=== PATIENT | female | born 1985 | race Caucasian/White ===

== ENCOUNTER 2023-12-01 07:48 | Emergency (ER) | payer BC, SELFPAY ==
[2023-12-01 07:48] VITALS: BP 155/85; PULSE 91; RESP 18; TEMP 37.2; O2SAT 100; BMI 27.6
--- NOTE | 2023-12-01 08:18 | CT_ITS ---
STUDY: CT ABDOMEN AND PELVIS WITHOUT CONTRAST REASON FOR EXAM: Female, 38 years old. Left sided abd pain RADIATION DOSAGE (If Supplied By Facility): CTDIvol = ( 8.63 ) mGy, DLP = ( 418.33 ) mGycm TECHNIQUE: Transaxial images were obtained from the dome of the diaphragm to the symphysis pubis without oral contrast, and without intravenous contrast. Sagittal and coronal images were reconstructed. Individualized dose optimization techniques were used for this CT. COMPARISON: None. FINDINGS: The visualized lung bases are unremarkable. The visualized portions of the heart are within normal limits. Normal liver. The gallbladder is not visualized and most likely status post cholecystectomy. Normal spleen. Normal pancreas. Normal bilateral adrenal glands. Normal right kidney. Normal left kidney. Normal visualized stomach. Normal small intestine. There are scattered colonic diverticula consistent with diverticulosis. There are surgical clips in the region of the appendix consistent with a prior appendectomy. Normal abdominal aorta. Normal inferior vena cava. Normal retroperitoneum. Normal urinary bladder. Normal abdominal wall. Normal osseous structures. CT/Abdomen/Pelvis without Cont IMPRESSION: Status post cholecystectomy and appendectomy. No acute abnormality is seen. Sigmoid diverticulosis. Electronically Signed: Alban Monzno MD at 9:40 EDT ,
--- NOTE | 2023-12-01 08:23 | EX.ED.DYSGE1 ---
HPI History of Present Illness Chief Complaint: Other, Pain/Inj Informant: patient Narrative Narrative: 38-year-old female states that she has painful lymphadenopathy for the past 3 weeks. This has been episodic for about 5 years. She has seen doctors, had workup, seeing endocrine, she had lots of testing including dissection and pathology of the lymph node, which ended up showing that it was a reactive node. She states for the past 3 weeks she has really been sore in her left axilla, left groin and inner thigh, and in the last week or so her left abdomen is really been hurting. Nauseated but no vomiting or diarrhea or blood. No melena. Low-grade fevers in the 99 range. Minor cough. [facility] Medical History (Updated 12/01/23 @ 10:[address] Swapnil Teixeira MD) Back pain Migraines Home Medications rizatriptan 5 mg tablet 5 mg PO .X1 PRN 11/27/15 [History Last Taken 11/25/15] citalopram 10 mg tablet 10 mg PO DAILY 10/28/16 [History Last Taken Unknown] meloxicam 15 mg tablet 15 mg PO DAILY #30 tabs 10/29/16 [Rx Last Taken Unknown] metaxalone 800 mg tablet 800 mg PO 4X/DAY PRN PRN Headache #60 tabs 10/29/16 [Rx Last Taken Unknown] nortriptyline 25 mg capsule 50 mg (2 x 25 mg) PO QHS ##60 10/29/16 [Rx Last Taken Unknown] tramadol 50 mg tablet 100 mg (2 x 50 mg) PO Q6H PRN PRN Pain #60 tabs 10/29/16 [Rx Last Taken Unknown] dicyclomine 10 mg capsule 20 mg (2 x 10 mg) PO Q6H PRN PRN abdominal pain #20 CAPSULES 12/01/23 [Rx Last Taken Unknown] tramadol 50 mg tablet 50 mg PO Q6H PRN pain 3 days #12 tabs 12/01/23 [Rx Last Taken Unknown] Allergy/AdvReac Type Severity Reaction Status Date / Time amitriptyline Allergy tachycardia, Verified 12/01/23 07:49 chest tightness Social History Smoking Status: Current every day smoker tobacco type: cigarettes ROS ROS ED Constitutional Constitutional ED: Reports fatigue and fever(s); Denies chills Eyes Eyes: Denies change in vision or diplopia ENT ENT ED: Denies rhinorrhea or sore throat Cardiovascular Cardiovascular: Denies chest pain or palpitations Respiratory/Chest Respiratory/Chest: Reports cough; Denies dyspnea Gastrointestinal Gastrointestinal: Reports abdominal pain; Denies diarrhea, hematochezia, melena, nausea or vomiting Genitourinary Genitourinary ED: Denies dysuria or hematuria Musculoskeletal Musculoskeletal: Reports back pain; Denies neck pain Integumentary Denies abscess or rash Neurologic Neurologic: Denies headache(s), paresthesias or weakness Psychiatric Psychiatric: Denies anxiety or suicidal thoughts Hematologic/Lymphatic Hematologic/Lymphatic: Reports as per HPI and lymphadenopathy; Denies easy bleeding or easy bruising EXAM Physical Exam Const Vital Signs: 12/01/23 07:48 12/01/23 09:45 Temperature 99 F Temperature Source Temporal Pulse Rate 91 90 Respiratory Rate 18 18 Blood Pressure 155/85 H 152/82 H Blood Pressure Mean 108 105 Pulse Ox 100 99 Oxygen Delivery Method Room Air Room Air Positive well nourished and well developed General Appearance ED: well developed and NAD HEENT Reports moist mucous membranes HEENT Narrative: POP clear. No stridor. normocephalic and atraumatic Eyes PERRL and EOMs intact bilaterally Neck full ROM, no lymphadenopathy and supple Chest Wall inspection of chest normal and palpation of chest normal Resp normal respiratory effort and clear to auscultation bilaterally Cardio regular rate, regular rhythm and no murmurs GI non-distended GI Narrative: very tender LUQ. No guarding/rebound. Otherwise, NT. Auscultation: normoactive bowel sounds Palpation: soft Back/Spine no CVA tenderness General Back: other FROM Extremity normal to inspection General Extremety ED: Negative for edema, pulses abnormal or tenderness General Extremity: Negative for edema or pulses abnormal Neuro oriented x3, CN's II-XII intact bilaterally and no sensory deficits noted Sensorium / Orientation: awake and alert Motor Exam: strength 5/5 throughout Psych mental status grossly normal Skin no rashes or lesions noted and no wounds MDM MDM MDM Narrative Medical decision making narrative: Patient concern about lymphadenopathy. I do not palpate any abnormal lymphadenopathy, the symptoms she is having of due to lymph nodes, suggest reactive lymphadenopathy, which she states basically was already proven with a biopsy but still she is concerned about lymphoma. We discussed what lymph nodes due to lymphoma typically are like, they are typically rubbery, relatively firm, and not tender/painful, opposite of what she is describing. In order to see if she has an enlarged spleen, to see if that is what is causing her left upper quadrant pain, I did a CT scan after we discussed pros and cons of that, it was negative for splenomegaly or lymphadenopathy, showed diverticulosis which I discussed with her, no signs of diverticulitis at this time. The rest of her tests are normal. I did an infectious workup, chest x-ray 2 views of mitral rotation negative for pneumonia, urinalysis negative, and COVID/influenza/RSV swab negative as well. In the meantime she was given Toradol which helped some, but not a lot. We discussed other causes of abdominal pain including urine or bowel syndrome which the patient at this point states I have a history of that. I am going to prescribe her some tramadol and dicyclomine to use as needed for symptoms, but otherwise I recommend following up with endocrine where she apparently had a positive KURT, she was told that she may have a connective tissue disorder, but I am not sure if that can cause a reactive lymphadenopathy or not. He is I discussed with her, it is difficult to rule in or rule out lymphoma or other cancers in the ER she is understanding of that. Lab Data Attestation: I reviewed the patient's lab results. Labs: Laboratory Results - last 24 hr 12/01/23 12/01/23 08:47 09:45 WBC 6.5 RBC 4.51 Hgb 14.0 Hct 41.9 MCV 92.9 MCH 31.0 MCHC 33.4 RDW Std Deviation 45.1 H RDW Coeff of Carlos 13.3 Plt Count 197 MPV 9.8 Immature Gran % (Auto) 0.200 Neut % (Auto) 68.5 Lymph % (Auto) 23.3 [place] % (Auto) 6.0 Eos % (Auto) 1.5 Baso % (Auto) 0.5 Absolute Neuts (auto) 4.5 Absolute Lymphs (auto) 1.52 Nucleated RBC % 0 Sodium 140 Potassium 3.9 Chloride 113 H Carbon Dioxide 25.0 Anion Gap 2 L BUN 13 Creatinine 0.83 Estim Creat Clear Calc 85.06 Est GFR (MDRD) Af Amer 98 Est GFR (MDRD) Non-Af 81 BUN/Creatinine Ratio 15.6 Glucose 99 Calcium 8.8 Total Bilirubin 0.70 AST 10 L ALT 18 Alkaline Phosphatase 37 L Total Protein 7.0 Albumin 3.9 Globulin 3.1 Albumin/Globulin Ratio 1.3 Urine Color Yellow Urine Clarity Cloudy Urine pH 5.0 Ur Specific [place] 1.025 Urine Protein 15 H Urine Glucose (UA) Normal Urine Ketones 5 H Urine Occult Blood 10 H Urine Nitrite Negative Urine Bilirubin Negative Urine Urobilinogen Normal Ur Leukocyte Esterase Negative Urine RBC 0-5 SEEN Urine WBC 0 SEEN Ur Squamous Epith Cells 5-10 SEEN Urine Bacteria 1+ Urine Mucus 1+ Radiography Diagnostic Testing: Clinical Impression(s) from Imaging Studies Abdomen/Pelvis CT 12/01/23 08:18 IMPRESSION: Status post cholecystectomy and appendectomy. No acute abnormality is seen. Sigmoid diverticulosis. Electronically Signed: Alban Monzon MD at 9:40 EDT , Chest X-Ray 12/01/23 08:27 IMPRESSION: Normal x-ray examination of the chest. Electronically Signed: Alban Monzon MD at 9:41 EDT , Discharge Plan Triage Chief Complaint: Other, Pain/Inj ED Provider: Swapnil Teixeira Dx/Rx/DC Orders Clinical Impression: Abdominal pain, left upper quadrant, Pain of multiple sites Instructions: Abdominal Pain Prescriptions: New dicyclomine 10 mg capsule 20 mg PO Q6H PRN PRN (Reason: abdominal pain) Qty: 20 0RF tramadol 50 mg tablet 50 mg PO Q6H PRN (Reason: pain) 3 Days Qty: 12 0RF No Action rizatriptan 5 MG tablet 5 mg PO .X1 PRN Patient Comments: MAGALLANES citalopram 10 MG tablet 10 mg PO DAILY nortriptyline 25 MG capsule 50 mg PO QHS Qty: 60 0RF tramadol 50 MG tablet 100 mg PO Q6H PRN PRN (Reason: Pain) Qty: 60 0RF metaxalone 800 MG tablet 800 mg PO 4X/DAY PRN PRN (Reason: Headache) Qty: 60 0RF meloxicam 15 MG tablet 15 mg PO DAILY Qty: 30 0RF Primary Care Provider: Fiorella Bradley Referrals: Fiorella Bradley PA [Primary Care Provider] - [facility] appointment Disposition Disposition: Home, Self Care
--- NOTE | 2023-12-01 08:27 | RAD_ITS ---
STUDY: X-RAY CHEST REASON FOR EXAM: Female, 38 years old. Cough, low-grade fever TECHNIQUE: PA and lateral views of the chest. COMPARISON: None. FINDINGS: The lungs are clear and expanded. There is no demonstrated pleural abnormality. Normal size heart. Normal mediastinum and radha. Normal visualized pulmonary arteries. Normal visualized aortic arch and descending thoracic aorta. Normal visualized thoracic spine. Normal visualized ribs, clavicles, and shoulders. There is no demonstrated abnormality of the visualized soft tissue structures of the upper abdomen. RAD/Chest PA and Lateral IMPRESSION: Normal x-ray examination of the chest. Electronically Signed: Alban Monzon MD at 9:41 EDT ,
[2023-12-01] MEDS: Ketorolac 30 MG/ML Syringe IV (08:56)
[2023-12-01 08:57] LABS: Absolute Lymphocyte Count 1.52 X10^3/uL (0.83-4.51); Absolute Neutrophil Count 4.5 X10^3/uL (2.0-7.7); Basophil# 0.03 X10^3/uL; Basophil% 0.5 % (0-1); Eosinophils% 1.5 % (0-5); Hematocrit 41.9 % (37-47); Lymphocyte # 1.52 X10^3/ul (0.83-4.51); Lymphocyte % 23.3 % (19-41); Mean Corp Hgb Conc 33.4 g/dL (32-36); Mean Corpuscular Volume 92.9 fL (81-99); Mean Platelet Vol. 9.8 fl (6.2-12.0); Monocyte# 0.39 X10^3/uL; NRBC Flagged by Analyzer 0 % (0-5); Neutrophil # 4.46 X10^3/uL (2.7-7.7); Neutrophil % 68.5 % (47-70); Platelet Count 197 K/mm3 (150-450); RBC Distribution Width CV 13.3 % (11.6-14.6); RBC Distribution Width SD 45.1 fl (35.1-43.9); Red Blood Count 4.51 M/mm3 (4.2-5.4); White Blood Count 6.5 K/mm3 (4.4-11.0)
[2023-12-01 09:16] LABS: ALB/GLOB Ratio 1.3 RATIO (0.9-2.4); AST(SGOT) 10 U/L (15-37); Alanine Aminotransfer ALT/SGPT 18 U/L (13-56); Albumin, Serum 3.9 g/dL (3.2-5.0); Alkaline Phosphatase 37 U/L (45-117); Anion Gap 2 (5-15); BUN 13 mg/dL (7-18); BUN/Creat Ratio 15.6 RATIO (10-20); Calcium,Total 8.8 mg/dL (8.5-10.1); Chloride 113 mmol/L (98-107); Creatinine, Serum 0.83 mg/dL (0.55-1.02); EST Glomerular Filtration Rate 81 mL/min (>60); Est Glom Filt Rate - Afr Amer 98 mL/min (>60); Estimated Creatinine Clearance 85.06 ml/min; Globulin 3.1 g/dL (2.2-4.2); Glucose 99 mg/dL (74-106); Potassium 3.9 mmol/L (3.5-5.1); Sodium Level 140 mmol/L (136-145)
[2023-12-01 09:45] VITALS: BP 152/82; PULSE 90; RESP 18; O2SAT 99
[2023-12-01 09:52] LABS: White Blood Cells 0 SEEN /hpf (0-5)
[2023-12-01 09:57] LABS: Color, Urine Yellow (Yellow); Glucose, Dipstick Normal (Normal); Ketone-Dipstick 5 mg/dl (Negative); Leukocyte Esterase-Dipstick Negative /ul (Negative); Nitrite-Dipstick Negative (Negative); Occult Blood-Urine 10 /ul (Negative); Protein-Dipstick 15 mg/dl (Negative); Specific Gravity, Urine 1.025 (1.002-1.030); Urine Bilirubin Dipstick Negative (Negative); Urine Clarity Cloudy (Clear); Urine Urobilinogen Normal (Normal)
[2023-12-01 10:04] LABS: Bacteria 1+ /hpf (None Seen); Mucous, Urine 1+ /hpf (<or=2+); Red Blood Cells-Urine 0-5 SEEN /hpf (0-5); Squamous Epithelial Cells - UA 5-10 SEEN /hpf (5-10)
[2023-12-01 11:00] VITALS: BP 150/80; PULSE 88; RESP 18; O2SAT 99
[2023-12-01 11:02] VITALS: BP 150/80; PULSE 88; RESP 18; TEMP 36.6; O2SAT 99
== END 2023-12-01 11:17 | disposition home or self-care (01) ==
PROVIDERS: Emergency Provider Emergency Medicine; PCP Physician Assistant; Visit Provider Emergency Medicine
DX: R10.12 Left upper quadrant pain (principal); K57.90 Diverticulosis of intestine, part unspecified, without perforation or abscess without bleeding; M54.9 Dorsalgia, unspecified; Z11.52 Encounter for screening for COVID-19; R50.9 Fever, unspecified; R05.9 Cough, unspecified; Z79.899 Other long term (current) drug therapy; F17.210 Nicotine dependence, cigarettes, uncomplicated
CPT/HCPCS: 71046; 74176; 80053; 81001; 85025; 87631; 96374; 99283; A4216

== ENCOUNTER → 2024-01-02 | Outpatient (CLI) | payer BC, SELFPAY ==
--- NOTE | 2024-01-02 16:38 | US_ITS ---
INDICATION: ADNEXAL CYST EXAMINATION: Ultrasound US Pelvis Non-OB Limited (eg bladder) COMPARISON: None. FINDINGS: 58 grayscale ultrasound images of the pelvis obtained transabdominally. In addition dedicated ovarian color Doppler and Doppler waveform interrogation was performed. UTERUS: Uterus is absent. ADNEXA: Flow is documented to bilateral ovaries by color Doppler as well as Doppler waveform. Anechoic right ovarian lesion measuring up to 3.8 cm. Additional hypoechoic 1.9 cm left ovarian lesion. No significant free fluid. US/Pelvic (Non ) IMPRESSION: 4 cm right ovarian cyst. Additional 2 cm left ovarian follicle as well. Electronically Signed: Philip Hancock MD at 4:27 EDT ,
--- NOTE | 2024-01-02 16:38 | US_ITS ---
INDICATION: NODULE LOWER EXT-LT. Pain left inner thigh. COMPARISON: None. FINDINGS: 27 targeted grayscale ultrasound images of the left inner thigh area of concern. Multiple cinematic series provided. No obvious mass or focal fluid collection. US/Ext Non Vasc Limited/Soft Tiss IMPRESSION: No obvious mass or focal fluid collection of the left inner thigh area of concern. Electronically Signed: Philip Hancock MD at 23:25 EDT ,
== END | disposition home or self-care (01) ==
LOC: US 16:35
PROVIDERS: PCP Physician Assistant; Referring Provider Physician Assistant; Visit Provider Physician Assistant
DX: N94.9 Unspecified condition associated with female genital organs and menstrual cycle (principal); R22.40 Localized swelling, mass and lump, unspecified lower limb
CPT/HCPCS: 76856; 76882

== ENCOUNTER 2025-03-07 12:54 | Emergency (ER) | payer BC, SELFPAY ==
[2025-03-07 12:55] VITALS: BP 115/91; PULSE 66; RESP 18; TEMP 36.8; O2SAT 100; BMI 30.9
[2025-03-07 13:07] LABS: Mucous, Urine 0 SEEN /hpf (<or=2+)
[2025-03-07 13:11] LABS: Color, Urine Yellow (Yellow); Glucose, Dipstick Normal (Normal); Ketone-Dipstick Negative (Negative); Leukocyte Esterase-Dipstick Negative /ul (Negative); Nitrite-Dipstick Negative (Negative); Occult Blood-Urine 10 /ul (Negative); Protein-Dipstick Negative (Negative); Specific Gravity, Urine 1.010 (1.002-1.030); Urine Bilirubin Dipstick Negative (Negative)
[2025-03-07 13:17] LABS: Red Blood Cells-Urine 0-5 SEEN /hpf (0-5); Squamous Epithelial Cells - UA 0-5 SEEN /hpf (5-10)
--- NOTE | 2025-03-07 13:32 | EX.ED.DYSGE1 ---
HPI History of Present Illness Chief Complaint: Complaint Informant: patient Onset/Context/Timing Onset: Yesterday Context: Gradual Onset Timing: Continuous Quality: Aching Location: Left lower abdomen and left lower back Worsened by: Pressure Relieved by: Tylenol Narrative Narrative: Patient presents with left lower quadrant abdominal pain and low back pain that has been getting worse since yesterday. Patient states is gradually getting worse. Patient describes it as aching. Patient states it is over the left lower abdomen and radiates straight into her back. Patient states it is worse whenever there is pressure in her lower abdomen. Patient states she has been taking Tylenol which has been helping somewhat. Patient admits to some nausea but denies any vomiting. Patient admits to some urinary frequency but denies any dysuria. Patient admits to some microscopic hematuria. Patient denies any fevers or chills. [facility] Medical History (Updated 03/07/25 @ 17:[address] Brant Ogden, DO) Genital prolapse, old laceration of muscles of pelvic floor Idiopathic intracranial hypertension Back pain Migraines Home Medications ?Medication ?Instructions ?Recorded ?Last Taken ?Type rizatriptan 5 mg tablet 5 mg PO .X1 PRN 11/27/15 11/25/15 History citalopram 10 mg tablet 10 mg PO DAILY 10/28/16 Unknown History meloxicam 15 mg tablet 15 mg PO DAILY #30 tabs 10/29/16 Unknown Rx metaxalone 800 mg tablet 800 mg PO 4X/DAY PRN PRN Headache 10/29/16 Unknown Rx #60 tabs nortriptyline 25 mg capsule 50 mg (2 x 25 mg) PO QHS ##60 10/29/16 Unknown Rx tramadol 50 mg tablet 100 mg (2 x 50 mg) PO Q6H PRN PRN 10/29/16 Unknown Rx Pain #60 tabs dicyclomine 10 mg capsule 20 mg (2 x 10 mg) PO Q6H PRN PRN 12/01/23 Unknown Rx abdominal pain #20 CAPSULES tramadol 50 mg tablet 50 mg PO Q6H PRN pain 3 days #12 12/01/23 Unknown Rx tabs promethazine 25 mg tablet 25 mg PO Q6H PRN PRN Nausea #10 03/07/25 Unknown Rx TABLETS Allergy/AdvReac Type Severity Reaction Status Date / Time amitriptyline Allergy tachycardia, Verified 12/01/23 07:49 chest tightness gabapentin AdvReac edema Verified 03/07/25 12:56 Surgical History (Updated 03/07/25 @ 13:[address] Brant Ogden DO) Hx of lymph node biopsy Hx of tubal ligation History of hysterectomy Hx of section Hx of cholecystectomy Hx of appendectomy Social History Smoking Status: Former smoker ROS ROS ED Constitutional Constitutional ED: Denies chills or fever(s) Eyes Eyes: Denies blurry vision or change in vision ENT ENT ED: Denies rhinorrhea or sore throat Cardiovascular Cardiovascular: Denies chest pain or palpitations Respiratory/Chest Respiratory/Chest: Denies cough or dyspnea Gastrointestinal Gastrointestinal: Reports abdominal pain and nausea; Denies vomiting Genitourinary Genitourinary ED: Reports hematuria and urinary frequency; Denies dysuria Musculoskeletal Musculoskeletal: Reports back pain; Denies neck pain Integumentary Denies abscess or rash Neurologic Neurologic: Denies headache(s) or weakness Allergic/Immunologic Allergic/Immunologic ED: Denies mouth swelling or urticaria EXAM Physical Exam Const Vital Signs: 03/07/25 12:55 03/07/25 16:43 03/07/25 17:36 Temperature 98.2 F 98 F Temperature Source Oral Pulse Rate 66 64 60 Respiratory Rate 18 16 16 Blood Pressure 115/91 H 107/62 106/67 Blood Pressure Mean 99 77 80 Pulse Ox 100 100 99 Oxygen Delivery Method Room Air Room Air Positive well nourished and well developed General Appearance ED: well developed and NAD HEENT Reports moist mucous membranes Neck supple and no JVD Resp normal respiratory effort and clear to auscultation bilaterally Cardio regular rate and regular rhythm GI non-distended Palpation: soft and tender LLQ; Negative for guarding or rebound tenderness present Back/Spine Back/Spine Narrative: There is mild tenderness of the left lumbar paraspinal muscles. There is no midline tenderness. There is no bony crepitance or step-off. Neuro oriented x3, CN's II-XII intact bilaterally and no sensory deficits noted Sensorium / Orientation: alert Motor Exam: strength 5/5 throughout Psych mental status grossly normal MDM MDM MDM Narrative Medical decision making narrative: Differential diagnosis includes urinary tract infection, ureteral calculus, pyelonephritis, diverticulitis, bowel obstruction, perforation, and electrolyte abnormality. CBC will be obtained to assess for leukocytosis and anemia. Basic metabolic profile will be obtained to assess for electrolyte abnormality and renal function. Urinalysis will be obtained to assess for urinary tract infection and hematuria. CT scan of the abdomen and pelvis will be obtained to assess for bowel obstruction, perforation, ureteral calculus, and diverticulitis. History & Record Review Additional record(s) reviewed:: Prior ED visit and Prior labs Lab Data Attestation: I reviewed the patient's lab results. Lab results narrative: Urinalysis was reviewed. There is no evidence of urinary tract infection or hematuria. CBC was reviewed and was within normal limits. Basic metabolic profile was reviewed and was within normal limits. Labs: Laboratory Results - last 24 hr 03/07/25 03/07/25 13:00 14:17 WBC 5.7 RBC 4.51 Hgb 14.0 Hct 41.7 MCV 92.5 MCH 31.0 MCHC 33.6 RDW Std Deviation 47.5 H RDW Coeff of Carlos 14.0 Plt Count 215 MPV 9.3 Immature Gran % (Auto) 0.400 Neut % (Auto) 59.4 Lymph % (Auto) 27.2 [place] % (Auto) 8.1 Eos % (Auto) 4.4 Baso % (Auto) 0.5 Absolute Neuts (auto) 3.4 Absolute Lymphs (auto) 1.54 Nucleated RBC % 0 Sodium 141 Potassium 3.9 Chloride 105 Carbon Dioxide 25.7 Anion Gap 11 BUN 17 Creatinine 0.78 Estim Creat Clear Calc 94.48 Est GFR (MDRD) Non-Af 97 BUN/Creatinine Ratio 21.9 H Glucose 88 Calcium 9.1 Urine Color Yellow Urine Clarity Clear Urine pH 7.0 Ur Specific [place] 1.010 Urine Protein Negative Urine Glucose (UA) Normal Urine Ketones Negative Urine Occult Blood 10 H Urine Nitrite Negative Urine Bilirubin Negative Urine Urobilinogen Normal Ur Leukocyte Esterase Negative Urine RBC 0-5 SEEN Urine WBC 0-5 SEEN Ur Squamous Epith Cells 0-5 SEEN Urine Bacteria RARE Urine Mucus 0 SEEN Radiography Diagnostic Testing: Clinical Impression(s) from Imaging Studies Abdomen/Pelvis CT 03/07/25 14:55 IMPRESSION: No acute intra-abdominal abnormality. Reading Location: [id number] scan of the abdomen pelvis was obtained. There is no acute intra-abdominal abnormality noted. There is no free air or free fluid. There is diverticulosis but no evidence of diverticulitis. This was interpreted by the radiologist was also independently reviewed by myself. Treatment and Re-Evaluation :: Patient was given IV fluids, morphine, and Zofran. Patient was still nauseated on reevaluation. Patient was given a dose of Phenergan. Patient was advised of her findings. Patient was instructed to follow-up with her primary care physician in 5 to 7 days. Patient declined a prescription for analgesics is agreeable to a prescription for antiemetic. Patient was given a prescription for Phenergan. Patient was instructed to start with a liquid diet and advance as tolerated. Patient was instructed to follow-up with her primary care physician in 5 to 7 days. Patient was instructed to return if worse in any way. Patient understood and was agreeable with the plan. All questions were answered. Discharge Plan Triage Chief Complaint: Complaint ED Provider: Brant Ogden Dx/Rx/DC Orders Clinical Impression: Abdominal pain, Nausea Instructions: ED Abdominal Pain Unkn Cause Fem Prescriptions: New promethazine 25 mg tablet 25 mg PO Q6H PRN PRN (Reason: Nausea) Qty: 10 0RF No Action rizatriptan 5 MG tablet 5 mg PO .X1 PRN Patient Comments: MAGALLANES citalopram 10 MG tablet 10 mg PO DAILY nortriptyline 25 MG capsule 50 mg PO QHS Qty: 60 0RF tramadol 50 MG tablet 100 mg PO Q6H PRN PRN (Reason: Pain) Qty: 60 0RF metaxalone 800 MG tablet 800 mg PO 4X/DAY PRN PRN (Reason: Headache) Qty: 60 0RF meloxicam 15 MG tablet 15 mg PO DAILY Qty: 30 0RF dicyclomine 10 mg capsule 20 mg PO Q6H PRN PRN (Reason: abdominal pain) Qty: 20 0RF tramadol 50 mg tablet 50 mg PO Q6H PRN (Reason: pain) 3 Days Qty: 12 0RF Primary Care Provider: Fiorella Bradley Referrals: Fiorella Bradley, ZACHARY [Primary Care Provider] - 5-7 Days Print Language: Sami Disposition Disposition: Home, Self Care Discharge Date/Time: 03/07/25 17:38
[2025-03-07] MEDS: 0.9% Normal Saline (1000mL) 1,000 ML 1000 ML IV (14:22)
[2025-03-07 14:34] LABS: Hematocrit 41.7 % (37-47); Hemoglobin 14.0 g/dL (12.0-15.0); Immature Granulocytes Count 0.020 X10^3/uL (0.0-0.0); Mean Corp Hgb Conc 33.6 g/dL (32-36); Mean Corpuscular Volume 92.5 fL (81-99); Mean Platelet Vol. 9.3 fl (6.2-12.0); NRBC Flagged by Analyzer 0 % (0-5); Platelet Count 215 K/mm3 (150-450); RBC Distribution Width CV 14.0 % (11.6-14.6); RBC Distribution Width SD 47.5 fl (35.1-43.9); Red Blood Count 4.51 M/mm3 (4.2-5.4); White Blood Count 5.7 K/mm3 (4.4-11.0)
--- NOTE | 2025-03-07 14:55 | CT_ITS ---
PROCEDURE: ABDOMEN/PELVIS W IV CONT ONLY 03/07/2025 REASON FOR EXAM: ABDOMINAL PAIN TECHNIQUE: ABDOMEN/PELVIS W IV CONT ONLY Coronal and Sagittal reconstruction series were provided. CONTRAST: Isovue 370 VOLUME: 98 mL One or more dose reduction techniques were used (e.g., Automated exposure control, adjustment of the mA and/or kV according to patient size, use of iterative reconstruction technique. RADIATION DOSE SUMMARY: CTDlvol: 18.4 mGy DLP: 946 mGycm COMPARISON: CT abdomen and pelvis 12/01/2023 FINDINGS: Lung bases: Unremarkable Liver: Mild intrahepatic biliary ductal dilatation, unchanged. Gallbladder: Surgically absent. Spleen: Unremarkable Pancreas: Normal size without evidence of mass surrounding inflammation or ductal dilation. Adrenals: Unremarkable Kidneys: No radiodense stone or hydronephrosis. Bladder: Unremarkable Reproductive Organs: Prior hysterectomy. Adnexal regions are unremarkable. Bowel: No obstruction or inflammation. Appendix is surgically absent. Sigmoid colon diverticulosis without evidence of acute diverticulitis. Lymph nodes: No suspicious lymph node enlargement. Vasculature: The abdominal aorta and IVC are normal. Bones: Bone island in the right iliac wing, unchanged Soft tissues: Unremarkable. CT/Abdomen/Pelvis W IV Cont ONLY IMPRESSION: No acute intra-abdominal abnormality. Reading Location: [facility]
[2025-03-07 15:23] LABS: Anion Gap 11 (5-15); BUN 17 mg/dL (4-19); BUN/Creat Ratio 21.9 RATIO (10-20); Calcium,Total 9.1 mg/dL (7.6-11.0); Carbon Dioxide 25.7 mmol/L (21.0-32.0); Chloride 105 mmol/L (98-108); Estimated Creatinine Clearance 94.48 ml/min (50-250); Glucose 88 mg/dL (70-99); Potassium 3.9 mmol/L (3.3-5.1)
[2025-03-07 16:43] VITALS: BP 107/62; PULSE 64; RESP 16; O2SAT 100
[2025-03-07] MEDS: proMETHazine 25 MG/ML Syringe 6.25 MG IM (17:08)
[2025-03-07 17:36] VITALS: BP 106/67; PULSE 60; RESP 16; TEMP 36.6; O2SAT 99
== END 2025-03-07 17:38 | disposition home or self-care (01) ==
PROVIDERS: Emergency Provider Emergency Medicine; PCP Physician Assistant; Referring Provider Emergency Medicine; Visit Provider Emergency Medicine
DX: R10.32 Left lower quadrant pain (principal); R11.0 Nausea; M54.50 Low back pain, unspecified; R35.0 Frequency of micturition; R31.29 Other microscopic hematuria; Z79.899 Other long term (current) drug therapy; Z87.891 Personal history of nicotine dependence
CPT/HCPCS: 74177; 80048; 81001; 85025; 96361; 96372; 96374; 96375; 99283; Q9967; J2405

== ENCOUNTER 2025-03-10 20:02 | Emergency (ER) | payer BC, SELFPAY ==
[2025-03-10 20:02] VITALS: BP 119/63; PULSE 84; RESP 16; TEMP 37; O2SAT 99; BMI 30.9
--- NOTE | 2025-03-10 20:25 | CT_ITS ---
PROCEDURE: ABDOMEN/PELVIS W IV CONT ONLY 03/10/2025 REASON FOR EXAM: ABDOMINAL AND LEFT FLANK PAIN. PRIOR CHOLECYSTECT TECHNIQUE: ABDOMEN/PELVIS W IV CONT ONLY Coronal and Sagittal reconstruction series were provided. CONTRAST: 100 mL of Isovue 370 One or more dose reduction techniques were used (e.g., Automated exposure control, adjustment of the mA and/or kV according to patient size, use of iterative reconstruction technique. RADIATION DOSE SUMMARY: DLP: 718 mGycm COMPARISON: 03/07/2025 FINDINGS: Limited sections of the lung bases demonstrate no focal pulmonary mass or consolidations. Right middle lobe subsegmental atelectasis. The liver, spleen, pancreas, and both adrenal glands demonstrate no acute findings. Hepatomegaly to 17.5 cm. Gallbladder is not well seen. The stomach is unremarkable. The small bowel loops are not dilated. The appendix is surgically removed. Diffuse colonic wall thickening and inflammation concerning for pancolitis. No bowel obstruction. There is no free air or significant free fluid. The kidneys are unremarkable. The urinary bladder is nondistended. The pelvic structures are intact. There is no solid pelvic mass. No significant lymphadenopathy. The aorta and IVC demonstrate no acute findings. Visualized osseous structures demonstrate no acute abnormality. CT/Abdomen/Pelvis W IV Cont ONLY IMPRESSION: Diffuse colonic wall thickening and inflammation concerning for pancolitis. No bowel obstruction. Reading Location: [id number]
--- NOTE | 2025-03-10 20:26 | EDS_ITS ---
HPI HPI - GI History of Present Illness Chief Complaint: Abd Pain Informant: patient Abdominal Pain/Flank Pain Onset: Days Context: Gradual Onset Timing: Continuous Quality: Aching and Cramping Location: Diffuse, LLQ and Left Flank Current Severity: Moderate Maximum Severity: Moderate Worsened by: Nothing Relieved by: Nothing Nausea/Vomiting/Emesis GI Symptom: Positive for Nausea; Negative for Vomiting Severity: Moderate Diarrhea/Melena/Hematochezia GI Symptom: Negative for Diarrhea, Melena or Hematochezia Associated Symptoms Associated Symptoms: Negative for Dysuria, Frequency, Hematuria or Urgency Narrative Narrative: 39-year-old female history of migraine headaches. Prior hysterectomy, cholecystectomy and appendectomy. States she has chronic left periumbilical pain. But now she is having urinary symptoms with associated nausea. No vomiting or diarrhea. Lower abdominal pressure. No fever. Also back pain both sides. Denies any trauma. Prior similar symptoms: Yes Recent Illness/Hospitalization: No PFSH PFS Medical History Genital prolapse, old laceration of muscles of pelvic floor Idiopathic intracranial hypertension Back pain Migraines Home Medications ?Medication ?Instructions ?Recorded ?Last Taken ?Type rizatriptan 5 mg tablet 5 mg PO .X1 PRN 11/27/1501/04 History citalopram 10 mg tablet 10 mg PO DAILY 10/28/16 Unkn own History meloxicam 15 mg tablet 15 mg PO DAILY #30 tabs 10/20 Unknown Rx metaxalone 800 mg tablet 800 mg PO 4X/DAY PRN PRN Hea dache 10/29/16 Unknown Rx #60 tabs nortriptyline 25 mg capsule 50 mg (2 x 25 mg) PO QHS # #60 10/29/16 Unknown Rx tramadol 50 mg tablet 100 mg (2 x 50 mg) PO Q6H KS N PRN 10/29/16 Unknown Rx Pain #60 tabs dicyclomine 10 mg capsule 20 mg (2 x 10 mg) PO Q6H PRN PRN 12/01/23 Unknown Rx abdominal pain #20 CAPSULES tramadol 50 mg tablet 50 mg PO Q6H PRN pain 3 days #12 12/01/23 Unknown Rx tabs promethazine 25 mg tablet 25 mg PO Q6H PRN PRN Nausea #10 03/07/25 Unknown Rx TABLETS ondansetron 4 mg disintegrating 4 mg PO Q6H PRN nausea and 03/10/25 Unknown Rx tablet vomiting #10 tabs Allergy/AdvReac Type Severity Reaction Status Date / Time amitriptyline Allergy tachycardia, Verified 03/10/25 20:03 chest tightness gabapentin AdvReac edema Verified 03/10/25 20:03 Surgical History Hx of lymph node biopsy Hx of tubal ligation History of hysterectomy Hx of section Hx of cholecystectomy Hx of appendectomy Social History Smoking Status: Former smoker ROS ROS ED ROS Narrative Nausea. Abdominal and back pain. Dysuria. Constitutional Constitutional ED: Denies chills or fever(s) ENT ENT ED: Denies ear pain Cardiovascular Cardiovascular: Denies chest pain Respiratory/Chest Respiratory/Chest: Denies cough or dyspnea Gastrointestinal Gastrointestinal: Reports abdominal pain and nausea; Denies constipation, diarrhea, melena or vomiting Genitourinary Genitourinary ED: Reports dysuria Musculoskeletal Musculoskeletal: Reports back pain; Denies arthralgias Integumentary Denies abscess Neurologic Neurologic: Denies headache(s) Psychiatric Psychiatric: Denies anxiety Endocrine Endocrinology: Denies polydipsia Hematologic/Lymphatic Hematologic/Lymphatic: Denies easy bleeding, easy bruising or lymphadenopathy Allergic/Immunologic Allergic/Immunologic ED: Denies mouth swelling, tongue swelling or urticaria EXAM Physical Exam Narrative Exam Narrative: 39-year-old female vital signs stable afebrile. No acute distress. Signifi cant other bedside. H EENT exam pupils round and light. Extra motions are intact. Neck nontender no lymphadenopathy. Lungs clear to auscultation. Heart regular rhythm rate about 80 no murmur. Chest wall ribs nontender. Abdomen soft nondistended normal bowel sounds without peritoneal signs mild left lower quadrant tenderness. No rebound guarding rigidity. No obstruction. No mass. No hernia. No distention. Right upper or right lower quadrants are unremarkable. Moving all 4 extremities. Nontender no edema. Back nontender. Neurologically she is awake alert. Answering questions following commands. Const Vital Signs: 03/10/25 20:02 Temperature 98.6 F Temperature Source Oral Pulse Rate 84 Respiratory Rate 16 Blood Pressure 119/63 Blood Pressure Mean 81 Pulse Ox 99 Oxygen Delivery Method Room Air Positive well nourished and well developed; Negative for obese, cachectic, contractures or unkempt General Appearance ED: well developed and NAD; Negative for unkempt, cachectic, contractures or pallor Nutritional Appearance: Negative for cachectic or obese HEENT Reports moist mucous membranes normocephalic and atraumatic Eyes PERRL and EOMs intact bilaterally General Eye ED: Negative for pale conjunctiva or scleral icterus Neck no lymphadenopathy, supple and no JVD Resp normal respiratory effort and clear to auscultation bilaterally Auscultation: Negative for rales, rhonchi or wheezes Cardio regular rate, regular rhythm, S1 normal heart sound, S2 normal heart sound and no murmurs Rate: Negative for bradycardia or tachycardic Rhythm: Negative for abnormal rhythm GI non-distended and no masses; Negative for non-tender Inspection: Negative for abdominal distention Auscultation: normoactive bowel sounds Palpation: soft and tender; Negative for guarding, rigid, hepatomegaly, splenomegaly, hernia, mass, pulsatile mass or rebound tenderness present Back/Spine no CVA tenderness General Back: Negative for CVA tenderness Cervical Spine: Negative for cervical spine tenderness Thoracic Spine / Upper Back: Negative for thoracic spinal tenderness Lumbar Spine / Lower Back: Negative for lumbar spinal tenderness Extremity full ROM General Extremety ED: Negative for edema or tenderness General Extremity: Negative for edema Neuro CN's II-XII intact bilaterally and moves all extremities Sensorium / Orientation: alert, oriented to person, oriented to place and oriented to time; Negative for orientation impaired or confused Motor Exam: strength 5/5 throughout Psych mental status grossly normal and thought process normal Appearance: Negative for unkempt Skin no wounds General Skin Exam: Negative for jaundice or pallor Lesions: no lesions Rashes: no rashes Trauma: Negative for abrasion Nails: Negative for discolored MDM MDM MDM Narrative Medical decision making narrative: 39-year-old female vital signs stable afebrile with flank and abdominal pain. Abdomen is pretty benign. This may be secondary to scar tissue or multiple prior abdominal surgeries. Consider diverticulitis., UTI, kidney stone. [place] Toradol for pain. Zofran for nausea. IV fluids. CAT scan and labs. Repeat exam patient doing well at 9:25 PM. Abdomen benign. She is feeling better after Zofran and Toradol. We are awaiting the second part of her UA and the CAT scan results. History & Record Review Discussion w/independent historian: Patient Additional record(s) reviewed:: Prior inpatient record, Prior outpatient record, Prior ED visit and Prior labs Lab Data Attestation: I reviewed the patient's lab results. Lab results narrative: CBC unremarkable. White count of 10. H&H 14 and 41. Platelets 227. Electrolytes show sodium 142. Gap 11. Normal BUN and creatinine. Liver enzymes normal. Lipase normal at 47. Urinalysis shows no nitrites. Negative. No white or red cells. CAT scan shows inflammation of the colon otherwise unremarkable. Labs: Laboratory Results - last 24 hr 03/10/25 03/10/25 20:28 20:40 WBC 10.0 RBC 4.57 Hgb 14.2 Hct 41.4 MCV 90.6 MCH 31.1 MCHC 34.3 RDW Std Deviation 45.8 H RDW Coeff of Carlos 13.8 Plt Count 227 MPV 9.3 Immature Gran % (Auto) 0.300 Neut % (Auto) 66.1 Lymph % (Auto) 22.6 [place] % (Auto) 7.0 Eos % (Auto) 3.6 Baso % (Auto) 0.4 Absolute Neuts (auto) 6.6 Absolute Lymphs (auto) 2.27 Nucleated RBC % 0 Sodium 142 Potassium 4.1 Chloride 105 Carbon Dioxide 25.5 Anion Gap 11 BUN 19 Creatinine 0.89 Estim Creat Clear Calc 82.82 Est GFR (MDRD) Non-Af 84 BUN/Creatinine Ratio 21.3 H Glucose 86 Calcium 9.4 Total Bilirubin 0.27 AST 20 ALT 13 Alkaline Phosphatase 52 Total Protein 7.1 Albumin 4.4 Globulin 2.7 Albumin/Globulin Ratio 1.6 Lipase 47 Urine Color Yellow Urine Clarity Clear Urine pH 6.0 Ur Specific [place] 1.025 Urine Protein 15 H Urine Glucose (UA) Normal Urine Ketones Negative Urine Occult Blood 25 H Urine Nitrite Negative Urine Bilirubin Negative Urine Urobilinogen Normal Ur Leukocyte Esterase 25 H Urine RBC 0-5 SEEN Urine WBC 0-5 SEEN Ur Squamous Epith Cells 0-5 SEEN Urine Bacteria RARE Urine Mucus 0 SEEN Radiography Diagnostic Testing: Clinical Impression(s) from Imaging Studies Abdomen/Pelvis CT 03/10/25 20:25 IMPRESSION: Diffuse colonic wall thickening and inflammation concerning for pancolitis. No bowel obstruction. Reading Location: [facility] Discharge Plan Triage Chief Complaint: Abd Pain Other Complaint: Back ED Provider: Jeffrey Poon Dx/Rx/DC Orders Clinical Impression: Abdominal pain, Nausea Instructions: Abdominal Pain Prescriptions: New ondansetron 4 mg tablet,disintegrating 4 mg PO Q6H PRN (Reason: nausea and vomiting) Qty: 10 0RF No Action rizatriptan 5 MG tablet 5 mg PO .X1 PRN Patient Comments: MAGALLANES citalopram 10 MG tablet 10 mg PO DAILY nortriptyline 25 MG capsule 50 mg PO QHS Qty: 60 0RF tramadol 50 MG tablet 100 mg PO Q6H PRN PRN (Reason: Pain) Qty: 60 0RF metaxalone 800 MG tablet 800 mg PO 4X/DAY PRN PRN (Reason: Headache) Qty: 60 0RF meloxicam 15 MG tablet 15 mg PO DAILY Qty: 30 0RF dicyclomine 10 mg capsule 20 mg PO Q6H PRN PRN (Reason: abdominal pain) Qty: 20 0RF tramadol 50 mg tablet 50 mg PO Q6H PRN (Reason: pain) 3 Days Qty: 12 0RF promethazine 25 mg tablet 25 mg PO Q6H PRN PRN (Reason: Nausea) Qty: 10 0RF Primary Care Provider: Fiorella Bradley Referrals: Fiorella Bradley, ZACHARY [Primary Care Provider] - 3-5 Days if not improving Activity Restrictions/Additional Instructions: Plenty of fluids and rest. Increase your diet slowly as tolerated. Motrin and Tylenol for pain. Zofran as needed for nausea. Follow-up with your primary care provider if not improving or return if feeling a lot worse. Print Language: Chinese Disposition Disposition: Home, Self Care
[2025-03-10 20:34] LABS: Hematocrit 41.4 % (37-47); Hemoglobin 14.2 g/dL (12.0-15.0); Immature Granulocytes Count 0.030 X10^3/uL (0.0-0.0); Mean Corp Hgb Conc 34.3 g/dL (32-36); Mean Corpuscular Volume 90.6 fL (81-99); Mean Platelet Vol. 9.3 fl (6.2-12.0); NRBC Flagged by Analyzer 0 % (0-5); Platelet Count 227 K/mm3 (150-450); RBC Distribution Width CV 13.8 % (11.6-14.6); RBC Distribution Width SD 45.8 fl (35.1-43.9); Red Blood Count 4.57 M/mm3 (4.2-5.4); White Blood Count 10.0 K/mm3 (4.4-11.0)
[2025-03-10] MEDS: Ketorolac 30 MG/ML Syringe IV (20:38)
[2025-03-10] MEDS: 0.9% Normal Saline (1000mL) 1,000 ML 999 ML IV (20:38)
[2025-03-10 20:43] LABS: Mucous, Urine 0 SEEN /hpf (<or=2+)
[2025-03-10 20:45] LABS: Color, Urine Yellow (Yellow); Glucose, Dipstick Normal (Normal); Ketone-Dipstick Negative (Negative); Leukocyte Esterase-Dipstick 25 /ul (Negative); Nitrite-Dipstick Negative (Negative); Occult Blood-Urine 25 /ul (Negative); Protein-Dipstick 15 mg/dl (Negative); Specific Gravity, Urine 1.025 (1.002-1.030); Urine Bilirubin Dipstick Negative (Negative)
[2025-03-10 20:50] LABS: AST(SGOT) 20 U/L (<=31); Alanine Aminotransfer ALT/SGPT 13 U/L (<=34); Albumin, Serum 4.4 g/dL (3.5-5.0); Alkaline Phosphatase 52 U/L (35-104); Anion Gap 11 (5-15); BUN 19 mg/dL (4-19); BUN/Creat Ratio 21.3 RATIO (10-20); Calcium,Total 9.4 mg/dL (7.6-11.0); Carbon Dioxide 25.5 mmol/L (21.0-32.0); Chloride 105 mmol/L (98-108); Estimated Creatinine Clearance 82.82 ml/min (50-250); Globulin 2.7 g/dL (2.2-4.2); Glucose 86 mg/dL (70-99); Lipase 47 U/L (13-75); Potassium 4.1 mmol/L (3.3-5.1)
--- OUTSIDE RECORDS SUMMARY | 2025-03-10 20:52 | XMS RPT_ITS | CCD ---
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 Unavailable Un available Cardiology Provider Unavailable Unavailable Edwardo ACRYLIC FABRICATOR, Janene Unavailable Unavaila ble Omar ACRYLIC FABRICATOR, Regina M Unavailable Unavailab le Unavailable Unavailable Stephanie ALFARONLeyda Unavailable Unavailabl e Urologist Provider Unavailable Unavailable Chava ALFARONWendi Unavailable BradleyFiorella nath Attending Unavailable Bradley, Fiorella Referring Unavailable Bradley, Fiorella Primary Care Unavailable Swapnil Teixeira Attending Unavailable Bradley, Fiorella Primary Care Unavailable Fiorella Bradley PA-C A Primary Care Provider CESTA, EDD Referring Unavailable CESTA, EDD Attending Unavailable BRADLEY, FIORELLA Primary Care Unavailable CESTA, EDD Attending Unavailable BRADLEY, FIORELLA Primary Care Unavailable Rheumatolgy Provider Unavailable Unavailable Carballo III, Logan Rick Primary Care Provide r Uday GLASS SAGGER.Hubert SOMMERS Unavailable [phone] Candelaria Benjamin MD Unavailable [phone] WOODROW FELDMAN Attending Unava ilable BRANDEN RAO Primary Care Unavailable BRANDEN RAO Referring Unavailable BRANDEN RAO Primary Care Unavailable Buffy LEONARDOKeturah Unavailable Unavailable Álvaro ACRYLIC FABRICATOR, Matteo Unavailable Unavailable NIKITA MARTÍNEZ Referring Unavailable BRADLEY, FIORELLA J Consulting Unavailable DG APPIAH MD Admitting Unavailable DG APPIAH MD Attending Unavailable DG APPIAH MD Primary Care Unavailable PROVIDER, UNKNOWN Consulting Unavailable BRADLEY, FIORELLA J Consulting Unavailable RACH, CRUZ HERNANDEZ Admitting Unavailable RACHCRUZ Caldera MD Attending Unavailable RACH, CRUZ HERNANDEZ Primary Care Unavailable PROVIDER, UNKNOWN Consulting Unavailable LEYDA GALDAMEZ METAL LOADER Admitting Unavailable BRALDEY, FIORELLA J Consulting Unavailable LEYDA GALDAMEZ METAL LOADER Attending Unavailable LEYDA GALDAMEZ METAL LOADER Primary Care Unavailable PROVIDER, UNKNOWN Consulting Unavailable BRADLEY, FIORELLA J Admitting Unavailable BRADLEY, FIORELLA J Attending Unavailable BRADLEY, FIORELLA J Consulting Unavailable BRADLEY, FIORELLA J Primary Care Unavailable PROVIDER, UNKNOWN Consulting Unavailable BRADLEY, FIORELLA J Admitting Unavailable BRADLEY, FIORELLA J Attending Unavailable BRADLEY, FIORELLA J Consulting Unavailable BRADLEY, FIORELLA J Primary Care Unavailable PROVIDER, UNKNOWN Consulting Unavailable ELADIO HERNANDES Admitting Unavailable BRADLEY, FIORELLA J Referring Unavailable BRADLEY, FIORELLA J Consulting Unavailable ELADIO HERNANDES Attending Unavailable ELADIO HERNANDES Primary Care Unavailable PROVIDER, UNKNOWN Consulting Unavailable Candelaria Benjamin MD Unavailable [phone] Bradley, Fiorella J Unavailable CARBALLO III, FLINT RICK Primary Care Unav ailable Fiorella Montenegro Primary Care Provider [phone] Dr. Brant Ogden DO Referring Provider Dr. Brant Ogden DO Emergency Provider Allergies Allergy Classification Reported Allergen(s) Allergy Type Date of Onset Reaction(s) Facility Acetaminophen / oxyCODONE (1 source) Acetaminophen / oxyCODONE Drug Allergy 3 [facility] Amitriptyline (2 sources) Amitriptyline Drug Allergy 6 Other, Palpitations Independa.; 1-4 All Anti-Epileptic Agents (1 source) gabapentin Drug Allergy 3 Other [facility] (20 sources) amitriptyline; Translations: [AMITRIPTYLINE] Drug Allergy 6 Other, Palpitations, Tachycardia, Other: See Comments [facility] Other [place] Rep[facility] (1 source) Acetaminophen / oxyCODONE Drug Allergy [facility] Repository (16 sources) Acetaminophen / oxyCODONE; Translations: [OXYCODONE-ACETAM INOPHEN] Drug Allergy 3 [facility] (17 sources) gabapentin; Translations: [GABAPENTIN] Drug Allergy 3 Other [facility] (20 sources) Amitriptyline Drug Allergy 1-4 All; Independa. (1 source) gabapentin Drug Allergy [facility] Repository Medications Current Medications Medication Drug Class(es) Dates Sig (Normalized) Sig (Original) acetaminophen 500 mg oral tablet (4 sources) Start: 12-07-2022 End: 01-06-2023 take 2 tablets by mouth every six hours as needed for pain acetaminophen (Tylenol Extra Strength) 500 MG tablet Take 2 tablets (1,000 mg) by mouth every 6 hours as needed for mild pain (1-3). 120 tablet 0 12/07/2022 01/06/2023 Active take 2 tablets by mo [facility] every six hours as needed for pain acetaminophen (Tylenol) 500 MG tablet Ta ke 1,000 mg by mouth every 6 hours as needed for mild pain (1-3). 0 Active acetaminophen 325 mg / butalbital 50 mg / caffeine 40 mg oral tablet (1 source) Barbiturate, Central Nervous System Stimulant, Methylxanthine Start: 11-22-2019 take 1 tablet by mouth twice daily as needed for headache [id number] 50-325-40 MG per tablet Indications: Intractable migraine with aura without status migrainosus Take 1 tablet by mouth 2 times daily as needed for Headaches. 30 tablet 5 11/22/2019 Active citalopram 10 mg oral tablet (2 sources) Serotonin Reuptake Inhibitor Start: 10-28-2016 take 1 tablet by mouth once daily Citalopram 10 MG tablet Active 10 mg PO DAILY October 28, 2016 1:00am COMPOUNDED PRESCRIPTION (3 sources) Start: 05-11-2016 COMPOUNDED PRESCRIPTION Jet Alert Caffeine OTC - 1-2 tabs daily as needed 0 05/11/2016 Active dicyclomine hydrochloride 10 mg oral capsule (20 sources) Anticholinergic Start: 12-01-2023 take 2 capsules by mouth every six hours as needed for pain Dicyclomine 10 mg capsule Active 20 mg PO EVERY 6 HOURS NEEDED as needed for abdominal pain December 01, 2023 10:38am Start: 12-01-2023 take 20 mg by mouth every six hours as needed Dicyclomine Active 20 MG PO EVERY 6 HOURS NEEDED December 01, 2023 10:38am Comment on above: Medication taken as needed. gabapentin 300 mg oral capsule (3 sources) Anti-epileptic Agent Start: 2015 take 1 capsule by mouth three times daily gabapentin (NEURONTIN) 300 mg capsule Take 1 capsule by mouth three times daily. 90 capsule 11 06/17/2016 Active hydroxychloroquine sulfate 200 mg oral tablet (3 sources) Antimalarial, Antirheumatic Agent Start: 2015 take 1 tablet by mouth twice daily hydroxychloroquine (PLAQUENIL) 200 mg tablet Take 1 tablet by mouth twice daily. 05/11/2016 Active hydrOXYzine hydrochloride 25 mg oral tablet (20 sources) Antihistamine Start: 2024 hydrOXYzine HCL 25 mg tablet ; 1 (one) tablet TID prn anxiety for 0 days Quantity: 30 {Tablet} Refills: 1 Ordered: 11-Jan-2025 CHENTE Bradley Start: 11-Jan-2025 Start: 04-10-2024 hydrOXYzine HC L 25 mg tablet ; 1 (one) tablet TID prn anxiety for 0 days Quantity: 30 {Tablet} Refills: 1 Ordered: 10-Apr-2024 MD Bulmaro Coleman Start: 10-Apr-2024 Start: 02-27-2024 hydrOXYzine HC L 25 mg tablet ; 1 (one) tablet TID prn anxiety for 0 days Quantity: 30 {Tablet} Refills: 1 Ordered: 27-Feb-2024 CHENTE Bradley Start: 27-Feb-2024 Start: 11-10-2023 End: 12-02-2023 hydrOXYzine HCL 25 mg tablet ; 1 (one) tablet TID prn anxiety for 0 days Quantity: 30 {Tablet} Refills: 1 Ordered: 02-Dec-2023 CHENTE Bradley Start: 10-Nov-2023 End: 02-Dec-2023 Status: Inactive ibuprofen 600 mg oral tablet (1 source) Nonsteroidal Anti-inflammatory Drug Start: 12-07-2022 End: 01-06-2023 take 1 tablet by mouth every six hours as needed for pain ibuprofen 600 MG tablet Take 1 tablet (600 mg) by mouth every 6 hours as needed for mild pain (1-3). 120 tablet 0 12/07/2022 01/06/2023 Active ketorolac tromethamine 10 mg oral tablet (2 sources) Nonsteroidal Anti-inflammatory Drug, Cyclooxygenase Inhibitor Start: 10-24-2022 take 1 tablet by mouth every eight hours as needed ketorolac (Toradol) 10 MG tablet Take 1 tablet by mouth every 8 hours as needed. 0 10/24/2022 Active levETIRAcetam 500 mg oral tablet (1 source) Start: 07-25-2020 take 1 tablet by mouth once daily, then take 1 tablet by mouth twice daily levETIRAcetam 500 MG tablet Indications: Lumbosacral radiculopathy 1 tab po daily x 1 week, then 1 tab BID 60 tablet 5 07/25/2020 Active meloxicam 15 mg oral tablet (2 sources) Nonsteroidal Anti-inflammatory Drug Start: 10-29-2016 take 1 tablet by mouth once daily Meloxicam 15 MG tablet Active 15 mg PO DAILY 30 0 October 29, 2016 1:00am metaxalone 800 mg oral tablet (2 sources) Start: 10-29-2016 take 1 tablet by mouth four times daily as needed for headache Metaxalone 800 MG tablet Active 800 mg PO 4 TIMES DAILY NEEDED as needed for Headache 60 October 29, 2016 11:19am nortriptyline 25 mg oral capsule (2 sources) Tricyclic Antidepressant Start: 10-29-2016 take 1 capsule by mouth at bedtime Nortriptyline 25 MG capsule Active 50 mg PO AT BEDTIME 60 0 October 29, 2016 1:00am Start: 10-29-2016 take 50 mg by mouth at bedtime Nortriptyline Active 50 MG PO AT BEDTIME 60 October 29, 2016 1:00am polyethylene glycol 3350 68189 mg powder for oral solution (1 source) Osmotic Laxative Start: 12-07-2022 End: 01-06-2023 polyethylene glycol, PEG, 3350 (Glycolax) 17 GM/SCOOP powder Take 17 g by mouth daily. 510 g 0 12/07/2022 01/06/2023 Active predniSONE 20 mg oral tablet (3 sources) Start: 02-27-2025 predniSONE 20 mg tablet ; 1 (one) Tablet as directed for 0 days Quantity: 20 {Tablet} Refills: 0 Ordered: 27-Feb-2025 CHENTE Bradley Start: 27-Feb-2025 Comments: Take 3tabs qd for 3 days thenTake 2tabs qd for 3 days thenTake 1tab qd for 3 days thenTake 1/2tab qd for 4 days. Comment on above: Take 3tabs qd for 3 days thenTake 2tabs qd for 3 days thenTake 1tab qd for 3 days thenTake 1/2tab qd for 4 days. promethazine hydrochloride 25 mg oral tablet (1 source) Phenothiazine Start: 03-07-2025 take 1 tablet by mouth every six hours as needed for nausea Promethazine 25 mg tablet Active 25 mg PO EVERY 6 HOURS NEEDED as needed for Nausea 10 March 07, 2025 12:00am rizatriptan 5 mg disintegrating oral tablet (5 sources) Serotonin-1b and Serotonin-1d Receptor Agonist Start: 05-11-2016 take 1 tablet by mouth every two hours as needed rizatriptan (MAXALT SUPERVISOR ELECTROLYTIC TINNING) 5 mg disintegrating tablet Take 1 tablet by mouth as needed. May repeat in 2 hours if needed 0 05/11/2016 Active Start: 11-27-2015 Rizatriptan 5 MG tablet Active 5 mg PO .X1 PRN November 27, 2015 12:00am traMADol hydrochloride 50 mg oral tablet (20 sources) Opioid Agonist Start: 12-01-2023 take 50 mg by mouth every six hours Tramadol Active 50 MG PO EVERY 6 HOURS 12 3 December 01, 2023 10:39am Start: 10-29-2016 take 2 tablets by [facility] every six hours as needed for pain Tramadol 50 MG tablet Active 100 mg PO EVERY 6 HOURS NEEDED as needed for Pain 60 October 29, 2016 1:00am Start: 10-29-2016 take 100 mg by mouth every six hours as needed Tramadol Active 100 MG PO EVERY 6 HOURS NEEDED 60 October 29, 2016 1:00am Comment on above: Medication taken as needed. Completed/Discontinued Medications Medication Drug Class(es) Dates Sig (Normalized) Sig (Original) amoxicillin 500 mg oral tablet (13 sources) Penicillin-class Antibacterial Start: 01-29-2025 End: 02-05-2025 amoxicillin 500 mg tablet ; 1 (one) tablet three times daily for 7 days Quantity: 21 {Tablet} Refills: 0 Ordered: 29-Jan-2025 [place] Start: 29-Jan-2025 End: 05-Feb-2025 Status: Inactive amoxicillin 875 mg / clavulanate 125 mg oral tablet (20 sources) Penicillin-class Antibacterial Start: 12-02-2023 End: 12-12-2023 amoxicillin 875 mg-potassium clavulanate 125 mg tablet ; 1 (one) tablet BID with food for 10 days Quantity: 20 {Tablet} Refills: 0 Ordered: 02-Dec-2023 CHENTE Bradley Start: 02-Dec-2023 End: 12-Dec-2023 Status: Inactive caffeine 100 mg oral tablet (20 sources) Central Nervous System Stimulant, Methylxanthine take 1 tablet by mouth once daily Caffeine 100 MG Oral Tablet ; 1 daily (100 MG) Status: Inactive take 0.5 tablet by m outh once daily in the morning CAFFEINE PO Take 0.5 tablets by mouth every morning. 0 Active ferrous sulfate 325 mg oral tablet (20 sources) Iron (ferrous mcmahon lfate) 325 mg (65 mg iron) tablet ; daily (325 mg (65 mg iro) Status: Inactive ketoconazole 20 mg/ml topical cream (20 sources) Azole Antifungal Start: 11-10-2023 End: 12-02-2023 ketoconazole 2 % topical cream ; 1 (one) application to affected area once daily until 1 week after resolution, typically for 4-6 weeks total for 0 days Quantity: 60 {Gram} Refills: 1 Ordered: 02-Dec-2023 [place] Start: 10-Nov-2023 End: 02-Dec-2023 Status: Inactive ondansetron 4 mg oral tablet (20 sources) Serotonin-3 Receptor Antagonist Start: 12-23-2023 End: 01-11-2025 ondansetron HCL 4 mg tablet ; 1 (one) tablet every 8 hours as needed for nausea for 0 days Quantity: 10 {Tablet} Refills: 0 Ordered: 11-Jan-2025 CHENTE Bradley Start: 23-Dec-2023 End: 11-Jan-2025 Status: Inactive Comments: Medication taken as needed. Start: 12-02-2023 ondansetron HC L 4 mg tablet ; 1 (one) tablet every 8 hours as needed for nausea for 0 days Quantity: 10 {Tablet} Refills: 0 Ordered: 02-Dec-2023 [place] Nelson Start: 02-Dec-2023 Comments: Medication taken as needed. Start: 12-07-2022 take 1 tablet by nesha th every twelve hours as needed for nausea ondansetron ODT (Zofran-ODT) 4 MG disintegrating tablet Take 1 tablet (4 mg) by mouth every 12 hours as needed for nausea or vomiting. 20 tablet 0 12/07/2022 Active Start: 05-11-2016 take 1 tablet by nesha th every eight hours as needed ondansetron orally disintegrating (ZOFRAN ODT) 4 mg disintegrating tablet Take 1 tablet by mouth every 8 hours as needed. 0 05/11/2016 Active Start: 10-16-2015 End: 11-28-2015 take 1 tablet by mouth every eight hours as needed for nausea Ondansetron 4 MG tablet Discontinued 4 mg PO EVERY 8 HOURS NEEDED as needed for Nausea October 16, 2015 1:00am November 28, 2015 1:14pm Comment on above: Medication taken as needed. sertraline 100 mg oral tablet (20 sources) Serotonin Reuptake Inhibitor Start: 12-23-2023 End: 01-11-2025 sertraline 100 mg tablet ; 1 (one) tablet daily for 0 days Quantity: 30 {Tablet} Refills: 1 Ordered: 11-Jan-2025 CHENTE Bradley Start: 23-Dec-2023 End: 11-Jan-2025 Status: Inactive Start: 11-10-2023 End: 12-02-2023 sertraline 50 mg tablet ; 1/ 2 tablet daily x 1 week and then increase to 1 tab daily for 0 days Quantity: 30 {Tablet} Refills: 1 Ordered: 02-Dec-2023 CHENTE Bradley Start: 10-Nov-2023 End: 02-Dec-2023 Status: Inactive Problems Active Problems Problem Classification Problem Date Documented Date Episodic/Chronic Abdominal pain (20 sources) Left upper quadrant pain; Translations: [Left upper quadrant pain] Onset: 01-24-2024 12-01-2023 Episodic Allergic reactions (20 sources) Urticaria, unspecified; Translations: [Allergic condition] Onset: 04-18-2024 10-17-2024 Episodic Anxiety disorders (20 sources) Anxiety; Translations: [Anxiety disorder, unspecified] 11-10-2023 Chronic Bacterial infection; unspecified site (20 sources) Streptococcus agalactiae infection; Translations: [Streptococcal infection, unspecified site] 01-29-2025 Episodic Benign neoplasm of uterus (20 sources) Uterine leiomyoma; Translations: [Leiomyoma of uterus, unspecified] 06-09-2023 Episodic Cardiac dysrhythmias (20 sources) Palpitations; Translations: [Palpitations] 07-06-2023 Episodic Conditions associated with dizziness or vertigo (1 source) Vertigo; Translations: [Dizziness and giddiness] Episodic Endometriosis (16 sources) Uterine adenomyosis; Translations: [Adenomyosis] Onset: 10-28-2022 10-28-2022 Chronic Genitourinary symptoms and ill-defined conditions (20 sources) Proteinuria; Translations: [Proteinuria, unspecified] 11-28-2015 Episodic Headache; including migraine (3 sources) Refractory migraine with aura; Translations: [Migraine with aura, intractable, without status migrainosus] Chronic Headache; including migraine (5 sources) Headache; Translations: [Headache] Onset: 06-17-2016 11-28-2015 Episodic Immunizations and screening for infectious disease (2 sources) Anti-nuclear factor positive; Translations: [Other specified abnormal immunological findings in serum] 11-28-2015 Episodic Lymphadenitis (1 source) Enlarged lymph nodes, unspecified; Translations: [Enlarged lymph nodes, unspecified] Onset: 12-07-2023 Episodic Menstrual disorders (20 sources) Dysmenorrhea; Translations: [Dysmenorrhea, unspecified] Onset: 10-28-2022 10-28-2022 Chronic Mood disorders (3 sources) Major depression, single episode; Translations: [Major depressive disorder, single episode, unspecified] Onset: 03-16-2007 03-01-2024 Chronic Mycoses (20 sources) Tinea pedis; Translations: [Tinea pedis] 11-10-2023 Episodic Nausea and vomiting (2 sources) Nausea; Translations: [Nausea] 10-28-2016 Episodic Other circulatory disease (20 sources) Tender lymph node; Translations: [Other specified symptoms and signs involving the circulatory and respiratory systems] 12-02-2023 Episodic Other connective tissue disease (2 sources) Pain in left thigh; Translations: [PAIN IN LEFT THIGH] Onset: 04-27-2019 Episodic Other connective tissue disease (20 sources) Muscle pain; Translations: [Myalgia, unspecified site] 02-24-2024 Episodic Other connective tissue disease (20 sources) Spasm; Translations: [Other muscle spasm] 01-24-2025 Episodic Other ear and sense organ disorders (1 source) Hearing loss; Translations: [Unspecified hearing loss, unspecified ear] Onset: 09-18-2020 09-18-2020 Chronic Other female genital disorders (20 sources) Abnormal uterine bleeding; Translations: [Abnormal uterine and vaginal bleeding, unspecified] Onset: 10-28-2022 10-28-2022 Chronic Other female genital disorders (20 sources) Cyst of uterine adnexa; Translations: [Unspecified condition associated with female genital organs and menstrual cycle] 12-23-2023 Episodic Other female genital disorders (1 source) Unspecified condition associated with female genital organs and menstrual cycle; Translations: [Unspecified condition associated with female genital organs and menstrual cycle] Onset: 01-11-2024 Episodic Other nervous system disorders (1 source) Raised intracranial pressure; Translations: [Benign intracranial hypertension] Chronic Other nervous system disorders (1 source) Benign intracranial hypertension; Translations: [Benign intracranial hypertension] 03-07-2025 Chronic Other nervous system disorders (1 source) Cerebrospinal fluid leak; Translations: [Cerebrospinal fluid leak] Onset: 12-28-2017 Episodic Other non-traumatic joint disorders (1 source) Pain in unspecified joint; Translations: [Pain in unspecified joint] Onset: 04-18-2024 Episodic Other non-traumatic joint disorders (6 sources) Shoulder joint pain; Translations: [Pain in unspecified shoulder] 02-27-2025 Episodic Other nutritional; endocrine; and metabolic disorders (20 sources) Hypocalcemia; Translations: [Hypocalcemia] 06-09-2023 Chronic Other nutritional; endocrine; and metabolic disorders (2 sources) Obese class I; Translations: [Obesity, unspecified] 10-16-2015 Chronic Other nutritional; endocrine; and metabolic disorders (20 sources) Unintentional weight loss; Translations: [Abnormal weight loss] 06-09-2023 Episodic Other screening for suspected conditions (not mental disorders or infectious disease) (20 sources) Cancer cervix screening status; Translations: [Encounter for screening for malignant neoplasm of cervix] Onset: 10-28-2022 10-28-2022 Episodic Other skin disorders (20 sources) Hirsutism; Translations: [Hirsutism] 06-09-2023 Episodic Other skin disorders (20 sources) Nodule of subcutaneous tissue of lower limb; Translations: [Localized swelling, mass and lump, unspecified lower limb] 12-14-2023 Episodic Ovarian cyst (16 sources) Cyst of bilateral ovaries; Translations: [Unspecified ovarian cyst, right side] Onset: 01-24-2024 01-24-2024 Episodic Prolapse of female genital organs (20 sources) Cystocele; Translations: [Cystocele, unspecified] Onset: 10-28-2022 10-28-2022 Chronic Residual codes; unclassified (2 sources) Generalized aches and pains; Translations: [Pain, unspecified] 12-01-2023 Episodic Spondylosis; intervertebral disc disorders; other back problems (4 sources) Lumbosacral radiculopathy; Translations: [Radiculopathy, lumbosacral region] Episodic Thyroid disorders (20 sources) Thyroid nodule; Translations: [Nontoxic single thyroid nodule] 06-09-2023 Chronic Unclassified (20 sources) Well adult female - The patient feels well with minor complaints (Pt wants to talk to dr about her red blood count or iron. Having some heart palpitations and with her Smart watch her heart rate can be in the 180's and feels very tired and sometimes palpitations. Pt says been going on for 6 weeks or so. IN sep. was in ER and bloodwork and RBC was low and then had hysterectomy 12/06/22. Feeling much better since hysterectomy.), has decreased energy level and is sleeping well (sleeping alot). The first day of the last menstrual period was : (hysterectomy in November 2022). The patient has a balanced diet. 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 The patient sleeps 8 hours per night. Note for Well adult female: Did not take ovaries.Does have Vasal Vagal syncope and gets some dizziness but since starting the vit. B complex and iron it is better (other than if turns around too fast).Thinks in October was when her RBCs were a little low. In March she noticed that she started to have some symptoms.Does have a lot of work stress so thought it might be related to that but didn't work last week and heart rate went up to 130s-160s. When at work again her highest was in the 120s. Has not been limited to when she is doing something active. Can feel like her heart is racing, gets hot. 06-09-2023 Unclassified (20 sources) Transition into care - The patient is transitioning into care from an emergency room ([facility]) and an electronic summary of care was not available. 12-23-2023 Unclassified (20 sources) [ADDITIONAL REASON] Follow up from hospital stay - Name of Hospital: [facility]. Date of Admission: 12/21/23. Date of Discharge: 12/21/23. The patient was hospitalized for Swollen lymph nodes. No new medications were prescribed. Patient did not have any consultations ordered while in the hospital. No post hospital therapies were ordered. Patient was discharged to home. Current Symptoms: abdominal pain, back pain, fatigue, muscle pain and swollen lymph glands. Note for Follow up from hospital stay: Patient states she was in the ER for severe pain and large size lump in her leg. States today she is still in pain and it is getting worse. States ER found a cyst of some sort on her left side. Is wanting more information on this.Having left lower abd pain that is going around to her back and now also feeling in right side as well.BMs normal.Not eating much. 12-23-2023 Unclassified (5 sources) Follow up from hospital stay - Name of Hospital: [facility]. Date of Admission: 12/21/23. Date of Discharge: 12/21/23. The patient was hospitalized for Swollen lymph nodes. No new medications were prescribed. Patient did not have any consultations ordered while in the hospital. No post hospital therapies were ordered. Patient was discharged to home. Current Symptoms: abdominal pain, back pain, fatigue, muscle pain and swollen lymph glands. Note for Follow up from hospital stay: Patient states she was in the ER for severe pain and large size lump in her leg. States today she is still in pain and it is getting worse. States ER found a cyst of some sort on her left side. Is wanting more information on this.Having left lower abd pain that is going around to her back and now also feeling in right side as well.BMs normal.Not eating much. 12-23-2023 Unclassified (5 sources) [ADDITIONAL REASON] Transition into care - The patient is transitioning into care from an emergency room ([facility]) and an electronic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 [phone] Ketone Negative Normal [facility].; [facility]. Comment on above: Performed By: #### 2 97862 #### [facility],[address] [place], [place] [phone] Leukocytes Negative Normal NORMAL: NEGATIVE [facility] Comment on above: Performed By: #### 2 31464 #### [facility],[address] [place], [place] [phone] Mucous NONE Normal [facility].; [facility]. Comment on above: Performed By: #### 2 02449 #### [facility],[address] [place] [address]36 Nitrite Ql (U) Negative Normal [facility].; [facility]. Comment on above: Performed By: #### 2 14794 #### [facility],[address] [place] [address]8553 pH (U) 6.5 [pH] Normal NORMAL: 5.0-8.0 [facility] Comment on above: Performed By: #### 2 72175 #### [facility],[address] [place] [address] 29956 Protein Ql (U) Negative Normal NORMAL: NEGATIVE [facility] Comment on above: Performed By: #### 2 54100 #### [facility],[address] [place] [address] 79792 Rbc 0-5 Normal 0 - 3 [facility].; [facility] Comment on above: Performed By: #### 2 29046 #### [place] [address] Sp [place] 1.010 Normal [facility]; [facility]. Comment on above: Performed By: #### 2 68803 #### [place] [address] Specimen Type Clean catch Normal [facility] Comment on above: Performed By: #### 2 73268 #### [place] [address] Urinalysis dipstick W Reflex Microscopic panel (U) SEE BELOW Normal [facility] Comment on above: Result Comment: MICR OSCOPIC Performed By: #### 2 94100 #### [place] [address] Urobilinog NORM Normal [facility]; [facility] Comment on above: Performed By: #### 2 59521 #### [place] [address] Wbc NONE Normal 0 - 5 [facility]; [facility]. Comment on above: Performed By: #### 2 80467 #### [place] [address] Yeast NONE Normal [facility] Comment on above: Performed By: #### 2 29727 #### [place] [address] URINE CULTURE [CCL]on 2024 Bacteria identified Cx Nom (U) URCUL See Results Below See Below CULTURE, URINE Mixed microbiota, including predominantly: CULTURE, URINE STREPTOCOCCUS AGALACTIAE (GROUP B STREPTOCOCCUS 50,000-<100,000 CFU/ml Streptococcus agalactiae (group b streptococcus) Susceptibility testing not performed on beta hemolytic streptococci due to predi This test was developed and its performance characteristics determined by the [facility] [place] ([facility]). It has not been cleared or approved by the FDA. -[facility] is regulated under CLIA as qualified to perform high-complexity testing. This test is used for clinical purposes. It should not be regarded as investigational or for research. SOURCE: Urine (Nonspecific) [facility] [address] [place] [address] Heron Mireles III, M.D. [id number] Normal [facility] Comment on above: Performed By: #### 2 48390 #### [place] [address] CMP with eGFRon 01-24-2025 AGE 39 years Normal [facility] Comment on above: Performed By: #### 2 89182 #### [place] [address] Albumin [Mass/Vol] 3.8 g/dL Normal 3.4 - 5.0 g/dL [facility], [facility].; [facility], [facility]. Comment on above: Performed By: #### 2 73508 #### [place] [address] Albumin/Globulin [Mass ratio] 1.2 {ratio} Normal 0.9 - 1.6 [facility] Comment on above: Performed By: #### 2 22456 #### [place] [address] ALK PHOS 39 U/L Low 46 - 116 [facility] Comment on above: Performed By: #### 2 79134 #### [place] [id number] ALT [Catalytic activity/Vol] 21 U/L Normal 16 - 63 U/L [facility].; [facility], [facility]. Comment on above: Performed By: #### 2 66685 #### [place] [id number] Anion gap [Moles/Vol] 10 mmol/L Normal 10 - 2 0 mmol/L [facility].; [facility]. Comment on above: Performed By: #### 2 22915 #### [place] [address] AST [Catalytic activity/Vol] 12 U/L Abnormal 13 - 39 U/L [facility].; [facility], [facility]. Comment on above: Performed By: #### 2 40778 #### [place] [address] B/C RATIO 28 ratio Normal 0 - 30 [facility] Comment on above: Performed By: #### 2 09990 #### [place] [address] Bilirubin [Mass/Vol] 0.3 mg/dL Normal 0.2 - 1 .0 mg/dL [facility], [facility].; [facility], [facility]. Comment on above: Performed By: #### 2 99705 #### [place] [address] Calcium [Mass/Vol] 8.6 mg/dL Normal 8.5 - 10. 1 mg/dL [facility].; [facility], [facility]. Comment on above: Performed By: #### 2 13059 #### [place] [address] Chloride [Moles/Vol] 105 mmol/L Normal 98 - 10 7 mmol/L [facility].; [facility], [facility]. Comment on above: Performed By: #### 2 52241 #### [place] [address] CMP with eGFR Normal [facility] Comment on above: Result Comment: COMP REHENSIVE METABOLIC PANEL Performed By: #### 2 33875 #### [place] [address] CO2 [Moles/Vol] 27.7 mmol/L Normal 21.0 - 32.0 mmol/L [facility], [facility].; [facility], [facility]. Comment on above: Performed By: #### 2 72695 #### [place] [address] Creatinine [Mass/Vol] 0.75 mg/dL Normal 0.55 - 1.02 mg/dL [facility], [facility].; [facility], [facility]. Comment on above: Performed By: #### 2 45751 #### [place] [address] GFR/1.73 sq M.predicted among non-blacks MDRD (S/P/Bld) [Vol rate/Area] mL/min/{1.73_m2} Normal 60 - 999 [facility] Comment on above: Performed By: #### 2 60642 #### [place] [address] Result Comment: ACCO RDING TO THE NATIONAL KIDNEY DISEASE EDUCATION PROGRAM(NKDE), A NORMAL eGFR IS A VALUE GREATER THAN OR EQUAL TO 60 ML/MIN/1.73 SQ METERS. CHRONIC KIDNEY DISEASE: <60mL/MIN/1.73 SQ METERS KIDNEY FAILURE: <15mL/MIN/1.73 SQ METERS THIS TEST SHOULD ONLY BE USED FOR PATIENTS 18 YEARS OF AGE AND OLDER. Globulin (S) [Mass/Vol] 3.3 g/dL Normal 1.5 - 3.8 g/dL [facility].; [facility], [facility]. Comment on above: Performed By: #### 2 34452 #### [place] [address] Glucose [Mass/Vol] 75 mg/dL Normal 74 - 106 mg/dL [facility], [facility].; [facility], [facility]. Comment on above: Performed By: #### 2 68283 #### [place] [address] Potassium [Moles/Vol] 3.8 mmol/L Normal 3.5 - 5.1 mmol/L [facility], [facility].; [facility], [facility]. Comment on above: Performed By: #### 2 44995 #### [place] [address] Protein [Mass/Vol] 7.1 g/dL Normal 6.4 - 8.2 g/dL [facility], [facility].; [facility], [facility]. Comment on above: Performed By: #### 2 07803 #### [place] [address] Sodium [Moles/Vol] 139 mmol/L Normal 136 - 145 mmol/L [facility], [facility].; [facility], [facility]. Comment on above: Performed By: #### 2 73162 #### [place] [address] Urea nitrogen [Mass/Vol] 21 mg/dL Abnormal 7 - 18 mg/dL [facility], [facility].; [facility], [employer]. Comment on above: Performed By: #### 2 45561 #### [place] [address] Laboratory - Chemistry and C hemistry - challengeon 01-24-2025 Albumin [Mass/Vol] 1.2 g/dL Normal 0.9 - 1.6 [facility], [facility].; [facility], [facility]. ALP [Catalytic activity/Vol] 39 U/L Abnormal 46 - 116 U/L [facility], [facility].; [facility], [facility]. Comprehensive metabolic 2000 panel CMP with eGFR Normal [facility], [facility].; [facility], [facility]. GFR/1.73 sq M.predicted among blacks MDRD (S/P/Bld) [Vol rate/Area] mL/min/{1.73_m2} Normal 60 - 999 {ML/MINUTE } [facility], [facility].; [facility], [facility] GFR/1.73 sq M.predicted MDRD (S/P/Bld) [Vol rate/Area] mL/min/{1.73_m2} Normal 60 - 999 {ML/MINUTE } [employer] Urea nitrogen/Creatinine [Mass ratio] 28 {ratio} Normal 0 - 30 {ratio} [employer], [employer]. MAGNESIUMon 01-24-2025 Magnesium [Mass/Vol] 2.1 mg/dL Normal 1.8 - 2 .4 mg/dL [employer], [employer]. Comment on above: Performed By: #### 2 74089 #### [facility],[address] [place] [address] No Panel Informationon 01-24 AGE 39 {years} Normal [employer].; [employer], [employer]. CULTURE, URINE, ROUTINEon CULTURE, URINE, ROUTINE SEE NOTE Normal [facility] Comment on above: Result Comment: CULTURE, URINE, ROUTINE Micro Number: [id number] Test Status: Final Specimen Source: Urine Specimen Quality: Adequate Result: No Growth Performed By: #### 3 95 #### [facility] [address], [address] [place] [id number] Sociology Professor: Jason Black MD Laboratory - Chemistry and C hemistry - challengeon 10-17-2024 Bilirubin Ql (U) Negative Normal [employer].; [employer], [employer]. Ketones Ql (U) Negative Normal [employer].; [employer], [employer]. pH (U) 6.0 [pH] Normal [employer].; [employer]. Specific gravity (U) [Rel density] 1.010 Normal [employer].; [employer]. Urobilinogen Qn (U) 0.2 mg/dL Normal [employer]; [employer]. Laboratory - Hematology and Cell countson 10-17-2024 Hemoglobin Ql (U) trace, hemolyzed Abnormal [facility] [employer] [employer], [employer]. Laboratory - Specimen inform ationon 10-17-2024 Appearance (U) clear Normal [employer] Color (U) yellow Normal [employer].; [employer], [employer]. Laboratory - Urinalysison Glucose Test strip (U) [Mass/Vol] Negative Normal [employer].; [employer], [employer]. Leukocyte esterase Test strip Ql (U) Negative Normal [employer].; [employer], [employer]. Nitrite Ql (U) Negative Normal [employer].; [employer], [employer]. Protein Ql (U) Negative Normal [employer].; [employer], [employer]. No Panel Informationon 10-17 CULTURE, URINE, ROUTINE SEE NOTE Normal [facility] [employer].; [employer]. TRYPTASE [CCL]on 06-15-2024 Tryptase 4.5 ug/L Normal <8.4 [facility] Comment on above: Result Comment: [place] [id number] [place] [address] Heron Mireles III, M.D. [id number] Performed By: #### 2 36298 #### [facility],[address] [place], [place] [address]C LABon 06-14-2024 [facility] Normal [facility] Comment on above: Result Comment: SEE SEPERATE REPORT Performed By: #### 2 91025 #### [facility],[address] [place] [address] LAB Normal [facility] Comment on above: Result Comment: S EE SEPERATE REPORT Performed By: #### 2 65082 #### [facility],[address] [place] [address] BMP with eGFRon 06-13-2024 AGE 38 years Normal [facility] Comment on above: Performed By: #### 2 44967 #### [facility],[address] [place] [address] Anion gap [Moles/Vol] 14 mmol/L Normal [facility] Comment on above: Performed By: #### 2 33431 #### [facility],[address] [place] [address] BMP with eGFR Normal [facility] Comment on above: Result Comment: HOA [employer] METABOLIC PANEL Performed By: #### 2 53030 #### [facility],[address] [place] [address] Calcium [Mass/Vol] 8.5 mg/dL Normal 8.5 - 10.1 [facility] Comment on above: Performed By: #### 2 16588 #### [facility],[address] [place] [address]6442 Chloride [Moles/Vol] 106 mmol/L Normal 98 - 107 [facility] Comment on above: Performed By: #### 2 04787 #### [facility],[address] [place] [address] CO2 [Moles/Vol] 24.8 mmol/L Normal 21.0 - 32.0 [facility] Comment on above: Performed By: #### 2 99772 #### [facility],[address] [place] [address]205 Creatinine [Mass/Vol] 0.74 mg/dL Normal 0.55 - 1.02 [facility] Comment on above: Performed By: #### 2 37780 #### [facility],[address] [place] [address] GFR/1.73 sq M.predicted among non-blacks MDRD (S/P/Bld) [Vol rate/Area] mL/min/{1.73_m2} Normal 60 - 999 [facility] Comment on above: Performed By: #### 2 45360 #### [facility],[address] [place] [address] Result Comment: ACCO RDING TO THE NATIONAL KIDNEY DISEASE EDUCATION PROGRAM(NKDE), A NORMAL eGFR IS A VALUE GREATER THAN OR EQUAL TO 60 ML/MIN/1.73 SQ METERS. CHRONIC KIDNEY DISEASE: <60mL/MIN/1.73 SQ METERS KIDNEY FAILURE: <15mL/MIN/1.73 SQ METERS THIS TEST SHOULD ONLY BE USED FOR PATIENTS 18 YEARS OF AGE AND OLDER. Glucose [Mass/Vol] 89 mg/dL Normal 74 - 106 [facility] Comment on above: Performed By: #### 2 67158 #### [place] [address] Potassium [Moles/Vol] 4.0 mmol/L Normal 3.5 - 5.1 [facility] Comment on above: Performed By: #### 2 24586 #### [place] [address] Sodium [Moles/Vol] 141 mmol/L Normal 136 - 145 [facility] Comment on above: Performed By: #### 2 25020 #### [place] [address] Urea nitrogen [Mass/Vol] 10 mg/dL Normal 7 - 18 [facility] Comment on above: Performed By: #### 2 11621 #### [place] [address] CBC (NO DIFF)on 06-13-2024 CBC panel Auto (Bld) Normal [facility] Comment on above: Result Comment: CBC( WITHOUT DIFFERENTIAL) Performed By: #### 2 05140 #### [place] [id number] Erythrocyte distribution width (RBC) [Ratio] 12.9 % Normal 12.0 - 15.6 [facility] Comment on above: Performed By: #### 2 16600 #### [place] [id number] Hematocrit (Bld) [Volume fraction] 42.7 % Normal 34.0 - 46.0 [facility] Comment on above: Performed By: #### 2 32390 #### [place] [id number] Hemoglobin (Bld) [Mass/Vol] 14.1 g/dL Normal 12.0 - 16.0 [facility] Comment on above: Performed By: #### 2 63115 #### [facility],[address] [place] [address]288 MCH (RBC) [Entitic mass] 31 pg Normal 27 - 33 [facility] Comment on above: Performed By: #### 2 46628 #### [facility],[address] [place] [address] 12777 MCHC 33 X10 3 Normal 32 - 36 [facility] Comment on above: Performed By: #### 2 98285 #### [facility],[address] [place] [address] 70476 MCV (RBC) [Entitic vol] 95 fL Normal 80 - 99 [facility] Comment on above: Performed By: #### 2 99723 #### [facility],[address] [place] [address] 21614 PLATELET 205 x10EE3/UL Normal 150 - 450 [facility] Comment on above: Performed By: #### 2 48839 #### [facility],[address] [place] [address] 06076 Platelet mean volume (Bld) [Entitic vol] 8.3 fL Normal 6.6 - 10.5 [facility] Comment on above: Performed By: #### 2 57933 #### [facility],[address] [place] [address] 32706 RBC 4.51 x 10EE6/UL Normal 4.10 - 5.30 [facility] Comment on above: Performed By: #### 2 00729 #### [facility],[address] [place] [address] 38409 WBC 6.3 x 10EE3/UL Normal 4.5 - 10.8 [facility] Comment on above: Performed By: #### 2 02283 #### [facility],[address] [place] [address] 10107 CBC + DIFFon 06-13-2024 Baso # 0.01 x10EE3/UL Normal 0.00 - 0.10 [facility] Comment on above: Performed By: #### 2 59674 #### [facility],[address] [place] [address] 75414 Basophils/100 WBC (Bld) 0.2 % Normal 0.0 - 2.0 [facility] Comment on above: Performed By: #### 2 40339 #### [facility],[address] [place] [address] 24265 CBC + DIFF Normal [facility] Comment on above: Result Comment: CBC- COMPLETE BLOOD COUNT Performed By: #### 2 45958 #### [facility],[address] [place] [address] EO # 0.28 x10EE3/UL Normal 0.00 - 0.50 [facility] Comment on above: Performed By: #### 2 67330 #### [facility],[address] [place] [address] 26595 Eosinophils/100 WBC (Bld) 4.5 % Normal 0.0 - 7.0 [facility] Comment on above: Performed By: #### 2 36016 #### [facility],[address] [place] [address] 75136 Erythrocyte distribution width (RBC) [Ratio] 12.9 % Normal 12.0 - 15.6 [facility] Comment on above: Performed By: #### 2 28939 #### [facility],[address] [place] [address] 48700 Hematocrit (Bld) [Volume fraction] 42.7 % Normal 34.0 - 46.0 [facility] Comment on above: Performed By: #### 2 08385 #### [facility],[address] [place] [address] 47017 Hemoglobin (Bld) [Mass/Vol] 14.1 g/dL Normal 12.0 - 16.0 [facility] Comment on above: Performed By: #### 2 09203 #### [facility],[address] [place] [address] Lymph # 1.78 x10EE3/UL Normal 0.80 - 2.80 [facility] Comment on above: Performed By: #### 2 09846 #### [facility],[address] [place] [address] Lymphocytes/100 WBC (Bld) 28.3 % Normal 20.0 - 45.0 [facility] Comment on above: Performed By: #### 2 01134 #### [facility],[address] [place] [address] MANUAL DIFF N/A Normal [facility] Comment on above: Performed By: #### 2 24341 #### [place] [address] MCH (RBC) [Entitic mass] 31 pg Normal 27 - 33 [facility] Comment on above: Performed By: #### 2 07479 #### [place] [address] MCHC 33 X10 3 Normal 32 - 36 [facility] Comment on above: Performed By: #### 2 07252 #### [facility],[address] [place] [address] MCV (RBC) [Entitic vol] 95 fL Normal 80 - 99 [facility] Comment on above: Performed By: #### 2 93321 #### [place] [address] [place] # 0.31 x10EE3/UL Normal 0.20 - 1.00 [facility] Comment on above: Performed By: #### 2 85900 #### [place] [address] MONOS % 5.0 % Normal 0.0 - 10.0 [facility] Comment on above: Performed By: #### 2 92989 #### [facility],[address] [place] [address] 28519 Morphology Rey (Bld) [Interp] N/A Normal [facility] Comment on above: Performed By: #### 2 55809 #### [facility],[address] [place] [address] 64053 Neut # 3.91 x10EE3/UL Normal 1.50 - 7.10 [facility] Comment on above: Performed By: #### 2 31969 #### [facility],[address] [place] [address] 62320 Neutrophils/100 WBC (Bld) 62.0 % Normal 46.0 - 76.0 [facility] Comment on above: Performed By: #### 2 40715 #### [facility],[address] [place], [place] [address] PLATELET 205 x10EE3/UL Normal 150 - 450 [facility] Comment on above: Performed By: #### 2 27271 #### [facility],[address] [place] [address] 50371 Platelet mean volume (Bld) [Entitic vol] 8.3 fL Normal 6.6 - 10.5 [facility] Comment on above: Result Comment: AUTO MATED DIFFERENTIAL Performed By: #### 2 43237 #### [facility],[address] [place] [address] 46211 RBC 4.51 x 10EE6/UL Normal 4.10 - 5.30 [facility] Comment on above: Performed By: #### 2 59969 #### [facility],[address] [place] [address] 74321 WBC 6.3 x 10EE3/UL Normal 4.5 - 10.8 [facility] Comment on above: Performed By: #### 2 81536 #### [facility],[address] [place] [address] 95870 IGA [CCL]on 06-13-2024 IGA [CCL] Normal [facility] Comment on above: Result Comment: _IGA [CCL]_ SEE SCANNED REPORT Performed By: #### 2 56103 #### [facility],[address] [place] [address] 73398 IGE [CCL]on 06-13-2024 IGE [CCL] Normal [facility] Comment on above: Result Comment: _IGE [CCL]_ SEE SCANNED REPORT Performed By: #### 2 96115 #### [facility],[address] [place] [address] 03685 IGG [CCL]on 06-13-2024 IGG [CCL] Normal [facility] Comment on above: Result Comment: _IGG [CCL]_ SEE SCANNED REPORT Performed By: #### 2 46467 #### [facility],[address] [place] [address] 49962 IGM [CCL]on 06-13-2024 IGM [CCL] Normal [facility] Comment on above: Result Comment: _IGM [CCL]_ SEE SCANNED REPORT Performed By: #### 2 20416 #### [facility],[address] [place] [address] 87339 LIPID PROFILEon 06-13-2024 Cholesterol [Mass/Vol] 157 mg/dL Normal 0 - 240 [facility] Comment on above: Performed By: #### 2 41353 #### [facility],[address] [place] [address] 50804 Cholesterol in HDL [Mass/Vol] 59 mg/dL Normal 40 - 60 [facility] Comment on above: Performed By: #### 2 28917 #### [facility],[address] [place] [address] 02900 Cholesterol in LDL [Mass/Vol] 87 mg/dL Normal 0 - 129 [facility] Comment on above: Performed By: #### 2 85635 #### [facility],[address] [place] [address] 54631 Cholesterol.total/Imelda sterol in HDL [Mass ratio] 2.7 {ratio} Normal 0.0 - 5.0 [facility] Comment on above: Performed By: #### 2 64445 #### [facility],[address] [place] [address] Lipid 1996 panel Normal [facility] Comment on above: Result Comment: LIPI D PROFILE Performed By: #### 2 87804 #### [facility],[address] [place] [address] Triglyceride [Mass/Vol] 54 mg/dL Normal 0 - [address] [facility] Comment on above: Performed By: #### 2 99636 #### [facility],[address] [place] [address] T3, FREE [CCL]on 06-13-2024 T3, FREE [CCL] Normal [facility] Comment on above: Result Comment: _T3, FREE(CCL)_ SEE SCANNED REPORT Performed By: #### 2 51382 #### [facility],[address] [place] [address] THYROID PEROXIDASE AB [CCL]o n 06-13-2024 THYROID PEROXIDASE AB [CCL] Normal [facility] Comment on above: Result Comment: _THY ROID PEROXIDASE AB [CCL]_ SEE SCANNED REPORT Performed By: #### 2 34782 #### [facility],[address] [place] [address] THYROID STIMULATING IMMUN [C CL]on 06-13-2024 THYROID STIMULATING IMMUN [CCL] Normal [facility] Comment on above: Result Comment: _THY ROID STIMULATING IMMUN [CCL]_ SEE SCANNED REPORT Performed By: #### 2 90912 #### [facility],[address] [place] [address] CBC + DIFFon 06-10-2024 Baso # 0.02 x10EE3/UL Normal 0.00 - 0.10 [facility] Comment on above: Performed By: #### 2 18134 #### [facility],[address],[place] [address] Basophils/100 WBC (Bld) 0.3 % Normal 0.0 - 2.0 [facility] Comment on above: Performed By: #### 2 97847 #### [facility],[address] [place] [address] CBC + DIFF Normal [facility] Comment on above: Result Comment: CBC- COMPLETE BLOOD COUNT Performed By: #### 2 47875 #### [facility],[address] [place] [address] EO # 0.30 x10EE3/UL Normal 0.00 - 0.50 [facility] Comment on above: Performed By: #### 2 71328 #### [facility],[address] [place] [address] Eosinophils/100 WBC (Bld) 5.3 % Normal 0.0 - 7.0 [facility] Comment on above: Performed By: #### 2 26021 #### [facility],[address] [place] [address] Erythrocyte distribution width (RBC) [Ratio] 13.3 % Normal 12.0 - 15.6 [facility] Comment on above: Performed By: #### 2 00933 #### [facility],[address] [place] [address] Hematocrit (Bld) [Volume fraction] 46.9 % High 34.0 - 46.0 [facility] Comment on above: Performed By: #### 2 25776 #### [facility],[address] [place] [address] Hemoglobin (Bld) [Mass/Vol] 15.4 g/dL Normal 12.0 - 16.0 [facility] Comment on above: Performed By: #### 2 18116 #### [facility],[address] [place] [address] Lymph # 1.81 x10EE3/UL Normal 0.80 - 2.80 [facility] Comment on above: Performed By: #### 2 12642 #### [facility],[address] [place] [address] Lymphocytes/100 WBC (Bld) 32.1 % Normal 20.0 - 45.0 [facility] Comment on above: Performed By: #### 2 85030 #### [facility],[address] [place] [address] MANUAL DIFF N/A Normal [facility] Comment on above: Performed By: #### 2 50616 #### [facility],[address] [place] [address] MCH (RBC) [Entitic mass] 31 pg Normal 27 - 33 [facility] Comment on above: Performed By: #### 2 68947 #### [facility],[address] [place] [address] MCHC 33 X10 3 Normal 32 - 36 [facility] Comment on above: Performed By: #### 2 43414 #### [facility],[address] [place], [place] [address] MCV (RBC) [Entitic vol] 95 fL Normal 80 - [address] [facility] Comment on above: Performed By: #### 2 64697 #### [facility],[address] [place] [address] [place] # 0.39 x10EE3/UL Normal 0.20 - 1.00 [facility] Comment on above: Performed By: #### 2 29148 #### [facility],[address] [place] [address] MONOS % 6.9 % Normal 0.0 - 10.0 [facility] Comment on above: Performed By: #### 2 29808 #### [facility],[address] [place], [place] [address] Morphology Rey (Bld) [Interp] N/A Normal [facility] Comment on above: Performed By: #### 2 42073 #### [facility],[address] [place] [address] 49350 Neut # 3.12 x10EE3/UL Normal 1.50 - 7.10 [facility] Comment on above: Performed By: #### 2 66363 #### [facility],[address] [place] [address] 82985 Neutrophils/100 WBC (Bld) 55.4 % Normal 46.0 - 76.0 [facility] Comment on above: Performed By: #### 2 26205 #### [facility],[address] [place] [address] 82265 PLATELET 250 x10EE3/UL Normal 150 - 450 [facility] Comment on above: Performed By: #### 2 11850 #### [facility],[address] [place] [address] 37684 Platelet mean volume (Bld) [Entitic vol] 7.5 fL Normal 6.6 - 10.5 [facility] Comment on above: Result Comment: AUTO MATED DIFFERENTIAL Performed By: #### 2 74497 #### [facility],[address] [place] [address] 33418 RBC 4.96 x 10EE6/UL Normal 4.10 - 5.30 [facility] Comment on above: Performed By: #### 2 55371 #### [facility],[address] [place] [address] 10441 WBC 5.6 x 10EE3/UL Normal 4.5 - 10.8 [facility] Comment on above: Performed By: #### 2 94191 #### [facility],[address] [place] [address] 51458 IgA SerPl-mCncon 06-10-2024 IgA [Mass/Vol] 101 mg/dL Normal 70-400 [facility] Comment on above: Order Comment: Speci men Type: BLOOD SPECIMEN Ordering Facility: [facility] Address: [address] [place] [address] Performed By: #### 2 472-9, 77797-2, 2465-3, MICRO, 3051-0, TSIGIM, 2458-8, TRYPT #### [facility] CLIA [id number] [address] [place] [address] [place] IgE SerPl-aCncon 06-10-2024 IgE Qn 54.9 kU/l Normal <114.0 [facility] Comment on above: Order Comment: Speci men Type: BLOOD SPECIMENOrdering Facility: [facility] Address: [address] [place] [address] Performed By: #### 2 472-9, 90332-8, 2465-3, MICRO, 3051-0, TSIGIM, 2458-8, TRYPT ####[facility] [id number] [place] [address] [place] IgG SerPl-mCncon 06-10-2024 IgG [Mass/Vol] 920 mg/dL Normal 700-1600 [facility] Comment on above: Order Comment: Speci men Type: BLOOD SPECIMEN Ordering Facility: [facility] Address: [address] [place] [address] Performed By: #### 2 472-9, 54150-1, 2465-3, MICRO, 3051-0, TSIGIM, 2458-8, TRYPT #### [facility] CLIA [id number] [address] [place] [address] [place] IgM SerPl-mCncon 06-10-2024 IgM [Mass/Vol] 67 mg/dL Normal 40-230 [facility] Comment on above: Order Comment: Speci men Type: BLOOD SPECIMENOrdering Facility: [facility] Address: [address] [place] [address] Performed By: #### 2 472-9, 19464-7, 2465-3, MICRO, 3051-0, TSIGIM, 2458-8, TRYPT ####[facility] [id number] [place] [address] [place] T3Free SerPl-mCncon 10-20-20 24 Free T3 [Mass/Vol] 3.9 pg/mL Normal 2.3-4.1 [facility] Comment on above: Order Comment: Renee montes Type: BLOOD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 clot measures 2 x 1.7 x 1cm. No internal doppler flow. Edd Negro MD Electronically Signed Final Report 01/24/2024 03:25 pm IMPRESSION: Uterus surgically absent. Normal right ovary Left ovary with cyst measuring 3.1cm. There is internal 2cm possible solid component vs. retracting clot. No doppler flow within this part of the lesion. Clinical correlation is recommended. [facility] Radiology Study observation (narrative) [facility] alth Ext Non Vasc Limited/Soft Ti sson 01-02-2024 Ext Non Vasc Limited/Soft Tiss [facility] Imaging Services [address] [place] [address] Ext Non Vasc Limited/Soft Tiss MR#: [id number] Acct: [id number] Name: JENNIFER DEL VALLE Rep #: [id number] : 1985 F 38 From: Philip Hancock MD PCP: ZACHARY Rhodes Status: REG CLI Study: Ext Non Vasc Limited/Soft Tiss Date of Exam: 0 01/02/24 Exam# [id number] Ordering Dr: Fiorella Bradley [id number] INDICATION: NODULE LOWER EXT-LT. Pain left inner thigh. COMPARISON: None. FINDINGS: 27 targeted grayscale ultrasound images of the left inner thigh area of concern. Multiple cinematic series provided. No obvious mass or focal fluid collection. US/Ext Non Vasc Limited/Soft Tiss IMPRESSION: No obvious mass or focal fluid collection of the left inner thigh area of concern. Electronically Signed: Philip Hancock MD at 23:25 EDT , CC: ZACHARY Rhodes [employer] Tender: Signed Normal [facility] Pelvic (Non )on 12-20 Pelvic (Non ) [facility] Services [address] [place] [address] Pelvic (Non ) MR#: [id number] Acct: [id number] Name: JENNIFER DEL VALLE Rep #: [id number] : 1985 F 38 From: Philip Hancock MD PCP: ZACHARY Rhodes Status: REG CLI Study: Pelvic (Non ) Date of Exam: 01/02/24 Exam# [id number] Ordering Dr: Fiorella Bradley [id number] INDICATION: ADNEXAL CYST EXAMINATION: Ultrasound US Pelvis Non-OB Limited (eg bladder) COMPARISON: None. FINDINGS: 58 grayscale ultrasound images of the pelvis obtained transabdominally. In addition dedicated ovarian color Doppler and Doppler waveform interrogation was performed. UTERUS: Uterus is absent. ADNEXA: Flow is documented to bilateral ovaries by color Doppler as well as Doppler waveform. Anechoic right ovarian lesion measuring up to 3.8 cm. Additional hypoechoic 1.9 cm left ovarian lesion. No significant free fluid. US/Pelvic (Non ) IMPRESSION: 4 cm right ovarian cyst. Additional 2 cm left ovarian follicle as well. Electronically Signed: Philip Hancock MD at 4:27 EDT , CC: ZACHARY Rhodes [employer] Tender: Signed Normal [facility] CULTURE, URINE, ROUTINEon CULTURE, URINE, ROUTINE SEE NOTE Abnormal [facility] Comment on above: Result Comment: CULTURE, URINE, ROUTINE Micro Number: [id number] Test Status: Final Specimen Source: Urine Specimen Quality: Adequate Result: 10,000-49,000 CFU/mL of Staphylococcus aureus S.aureus INT CANDIS CIPROFLOXACIN S <=0.5 GENTAMICIN S <=0.5 LEVOFLOXACIN S <=0.12 NITROFURANTOIN S <=16 OXACILLIN S <=0.25 1 TETRACYCLINE S <=1 TRIMETHOPRIM/SULFA S <=10 VANCOMYCIN S 1 S=Susceptible I=Intermediate R=Resistant * = Not Tested NR = Not Reported NN = See Therapy Comments THERAPY COMMENTS Note 1: Oxacillin susceptible staphylococci are susceptible to other penicillinase-stable penicillins (e.g., methicillin, nafcillin), beta- lactam/beta-lactamase inhibitor combinations, and cephems with staphylococcal indications, including cefazolin. Performed By: #### 3 95 #### [facility] [address], [address] [place] [address] Sociology Professor: Jason Black MD Laboratory - Chemistry and C hemistry - challengeon 12-14-2023 Bilirubin Ql (U) Negative Normal [facility] Ketones Ql (U) trace Normal [facility]. pH (U) 5.5 [pH] Normal [facility] Specific gravity (U) [Rel density] 1.015 Normal 1-4 All; [facility] Urobilinogen Qn (U) 0.2 mg/dL Normal [facility] [employer]; [facility] Laboratory - Hematology and Cell countson 12-14-2023 Hemoglobin Ql (U) trace, hemolyzed Abnormal H [facility]; [facility] Laboratory - Specimen inform ationon 12-14-2023 Appearance (U) clear Normal 1-4 All; [facility]. Color (U) yellow Normal 1-4 All; [facility] Laboratory - Urinalysison Glucose Test strip (U) [Mass/Vol] Negative Normal [facility]. Leukocyte esterase Test strip Ql (U) Negative Normal 1-4 All; [facility]. Nitrite Ql (U) Negative Normal [facility].; [facility]. Protein Ql (U) Negative Normal [facility].; [facility]. No Panel Informationon 12-13 CULTURE, URINE, ROUTINE SEE NOTE Abnormal H [facility].; [facility]. KURT SCREEN, IFA, W/REFL TITE R AND PATTERNon 12-06-2023 KURT SCREEN, IFA Negative Normal NEGATIVE [facility] Comment on above: Result Comment: KURT IFA is a first line screen for detecting the presence of up to approximately 150 autoantibodies in various autoimmune diseases. A negative KURT IFA result suggests an KURT-associated autoimmune disease is not present at this time, but is not definitive. If there is high clinical suspicion for Sjogren's syndrome, testing for anti-SS-A/Ro antibody should be considered. Anti-Shanna-1 antibody should be considered for clinically suspected inflammatory myopathies. AC-0: Negative International Consensus on KURT Patterns (https://doi.org/10.1515/kxfz-0074-8408) For additional information, please refer to http://education.[employer].EdSurge/faq/WIE075 (This link is being provided for informational/ educational purposes only.) Performed By: #### 2 49, 809, 5096, 4420 #### [facility] [address] Sociology Professor: Jason Black MD C-REACTIVE PROTEINon 024 CRP [Mass/Vol] 0.5 mg/L Normal <8.0 [facility] Comment on above: Performed By: #### 2 49, 809, 6399, 4420 #### [facility] [address] [address] Sociology Professor: Jason Black MD CBC (INCLUDES DIFF/PLT)on Basophils (Bld) [#/Vol] 0.023 10*3/uL Normal 0-200 [facility] Comment on above: Performed By: #### 2 49, 809, 6399, 4420 #### [facility] [place] [id number] Sociology Professor: Jason Black MD Basophils/100 WBC (Bld) 0.3 % Normal [facility] Comment on above: Performed By: #### 2 49, 809, 6399, 4420 #### [facility] of [address], [address] [place] [address] Sociology Professor: Jason Black MD Eosinophils (Bld) [#/Vol] 0.164 10*3/uL Normal 15-500 [facility] Comment on above: Performed By: #### 2 49, 809, 6399, 4420 #### [facility] of [address], [address] [place] [address] Sociology Professor: Jason Black MD Eosinophils/100 WBC (Bld) 2.1 % Normal [facility] Comment on above: Performed By: #### 2 49, 809, 6399, 4420 #### [facility] of [address], [address] [place] [address] Sociology Professor: Jason Black MD Erythrocyte distribution width (RBC) [Ratio] 12.9 % Normal 11.0-15.0 [facility] Comment on above: Performed By: #### 2 49, 809, 6399, 4420 #### [facility] of [place] [address] Sociology Professor: Jason Black MD Hematocrit (Bld) [Volume fraction] 41.9 % Normal 35.0-45.0 [facility] Comment on above: Performed By: #### 2 49, 809, 6399, 4420 #### [facility] of [address], [address] [place] [address] Sociology Professor: Jason Black MD Hemoglobin (Bld) [Mass/Vol] 14.1 g/dL Normal 11.7-15.5 [facility] Comment on above: Performed By: #### 2 49, 809, 6399, 4420 #### [facility] of [address], [address] [place] [address] Sociology Professor: Jason Black MD Lymphocytes (Bld) [#/Vol] 2.02 10*3/uL Normal 850-3900 [facility] Comment on above: Performed By: #### 2 49, 809, 6399, 4420 #### [facility] of [address], [address] [place] [address] Sociology Professor: Jason Black MD Lymphocytes/100 WBC (Bld) 25.9 % Normal [facility] Comment on above: Performed By: #### 2 49, 809, 6399, 4420 #### [facility] of [place] [address] Sociology Professor: Jason Black MD MCH (RBC) [Entitic mass] 31.3 pg Normal 27.0-33.0 [facility] Comment on above: Performed By: #### 2 49, 809, 6399, 4420 #### [facility] of [place] [address] Sociology Professor: Jason Black MD MCHC (RBC) [Mass/Vol] 33.7 g/dL Normal 32.0-36.[address] [facility] Comment on above: Performed By: #### 2 49, 809, 6399, 4420 #### [facility] of [place] [address] Sociology Professor: Jason Black MD MCV (RBC) [Entitic vol] 93.1 fL Normal 80.0-100.0 [facility] Comment on above: Performed By: #### 2 49, 809, 6399, 4420 #### [facility] of [address], [address] [place] [address] Sociology Professor: Jason Black MD Monocytes (Bld) [#/Vol] 0.46 10*3/uL Normal 200-950 [facility] Comment on above: Performed By: #### 2 49, 809, 6399, 4420 #### [facility] of [place] [address] Sociology Professor: Jason Blakc MD Monocytes/100 WBC (Bld) 5.9 % Normal Q [facility] Comment on above: Performed By: #### 2 49, 809, 6399, 4420 #### [facility] of [address], [address] [place] [address] Sociology Professor: Jason Black MD Neutrophils (Bld) [#/Vol] 5.132 10*3/uL Normal 2656-9353 [facility] Comment on above: Performed By: #### 2 49, 809, 6399, 4420 #### [facility] of [address], [address] [place] [address] Sociology Professor: Jason Black MD Neutrophils/100 WBC (Bld) 65.8 % Normal [facility] Comment on above: Performed By: #### 2 49, 809, 6399, 4420 #### [facility] of [address], [address] [place] [address] Sociology Professor: Jason Black MD Platelet mean volume (Bld) [Entitic vol] 10.5 fL Normal 7.5-12.5 [facility] Comment on above: Performed By: #### 2 49, 809, 6399, 4420 #### [facility] of [place] [address] Sociology Professor: Jason Black MD Platelets (Bld) [#/Vol] 225 10*3/uL Normal 140-400 [facility] Comment on above: Performed By: #### 2 49, 809, 6399, 4420 #### [facility] of [address], [address] [place] [address] Sociology Professor: Jason Black MD RBC (Bld) [#/Vol] 4.50 10*6/uL Normal 3.80-5.10 [facility] Comment on above: Performed By: #### 2 49, 809, 6399, 4420 #### [facility] of [address], [address] [place] [address] Sociology Professor: Jason Black MD WBC (Bld) [#/Vol] 7.8 10*3/uL Normal 3.8-10.8 [facility] Comment on above: Performed By: #### 2 49, 809, 6399, 4420 #### [facility] [place] [address] Sociology Professor: Jason Black MD LYME DISEASE AB W/REFL TO BL OT (IGG, IGM)on 12-06-2023 LYME AB SCREEN <0.90 Normal [facility] Comment on above: Result Comment: Inde x Interpretation ----- < 0.90 Negative 0.90-1.09 Equivocal > 1.09 Positive As recommended by the Food and Drug Administration (FDA), all samples with positive or equivocal results in a Borrelia burgdorferi antibody screen will be tested using a blot method. Positive or equivocal screening test results should not be interpreted as truly positive until verified as such using a supplemental assay (e.g., B. burgdorferi blot). The screening test and/or blot for B. burgdorferi antibodies may be falsely negative in early stages of Lyme disease, including the period when erythema migrans is apparent. Performed By: #### 2 49, 809, 6399, 4420 #### [facility] [place] [address] Sociology Professor: Jason Black MD SED RATE BY MODIFIED WESTERG RENon 12-06-2023 SED RATE BY MODIFIED WESTERGREN 2 mm/h Normal < OR = 20 [facility] Comment on above: Performed By: #### 2 49, 809, 6399, 4420 #### [facility] [place] [address] Sociology Professor: Jason Black MD Laboratory - Chemistry and C hemistry - challengeon 12-02-2023 CRP [Mass/Vol] 0.5 mg/L Normal [facility], [facility].; [facility] Laboratory - Hematology and Cell countson 12-02-2023 Basophils (Bld) [#/Vol] 0.023 10*3/uL Normal 0 - 200 {cells/uL} [facility], [facility].; [employer] Basophils/100 WBC (Bld) 0.3 % Normal H [facility].; [facility], [facility]. Eosinophils (Bld) [#/Vol] 0.164 10*3/uL Normal 15 - 500 {cells/uL} [facility], [facility].; [employer] Eosinophils/100 WBC (Bld) 2.1 % Normal [facility].; [employer], [facility]. Erythrocyte distribution width (RBC) [Ratio] 12.9 % Normal 11.0 - 15.0 % [facility], [facility].; [employer]. Hematocrit (Bld) [Volume fraction] 41.9 % Normal 35.0 - 45.0 % [facility], [facility].; [employer], [facility]. Hemoglobin (Bld) [Mass/Vol] 14.1 g/dL Normal 11.7 - 15.5 g/dL [facility], [facility].; [employer], [facility]. Lymphocytes (Bld) [#/Vol] 2.02 10*3/uL Normal 850 - 3900 {cells/uL} [facility].; [employer], [employer]. Lymphocytes/100 WBC (Bld) 25.9 % Normal [facility].; [employer], [facility]. MCH (RBC) [Entitic mass] 31.3 pg Normal 27.0 - 33.0 pg [facility] [employer] [facility], [facility].; [employer], [facility]. MCHC (RBC) [Mass/Vol] 33.7 g/dL Normal 32.0 - 36.0 g/dL [facility], [facility].; [employer] MCV (RBC) [Entitic vol] 93.1 fL Normal 80.0 - 100.0 fL [facility] [employer] [facility].; [employer] Monocytes (Bld) [#/Vol] 0.46 10*3/uL Normal 200 - 950 {cells/uL} [employer], [facility].; [employer] Monocytes/100 WBC (Bld) 5.9 % Normal [facility], [facility].; [employer] Neutrophils (Bld) [#/Vol] 5.132 10*3/uL Normal 1500 - 7800 {cells/uL} [facility].; [facility] [employer] [facility] Neutrophils/100 WBC (Bld) 65.8 % Normal [facility].; [facility] Platelet mean volume (Bld) [Entitic vol] 10.5 fL Normal 7.5 - 12.5 fL [facility].; [facility] Platelets (Bld) [#/Vol] 225 10*3/uL Normal 140 - 400 [facility].; [facility] [employer] [facility]. RBC (Bld) [#/Vol] 4.50 10*6/uL Normal 3.80 - 5.10 {Million/u L} [facility].; [facility] WBC (Bld) [#/Vol] 7.8 10*3/uL Normal 3.8 - 10.8 [facility]; [facility] [employer] [facility] No Panel Informationon 12-01 KURT SCREEN, IFA Negative Normal [facility]; [facility] [employer] [facility] LYME AB SCREEN <0.90 Normal [facility].; [facility] [employer] [facility] SED RATE BY MODIFIED WESTERGREN 2 mm/h Normal [facility].; [facility] Abdomen/Pelvis without Conto n 12-01-2023 Abdomen/Pelvis without Cont [facility] Imaging Services [address] [place] [id number] Abdomen/Pelvis without Cont MR#: [id number] Acct: [id number] Name: JENNIFER DEL VALLE Rep #: [id number] : 1985 F 38 From: Alban cohen MD PCP: ZACHARY Rhodes Status: REG ER Study: Abdomen/Pelvis without Cont Date of Exam: 11/20 09/14 Exam# [id number] Ordering Dr: Swapnil Teixeira MD [id number] STUDY: CT ABDOMEN AND PELVIS WITHOUT CONTRAST REASON FOR EXAM: Female, 38 years old. Left sided abd pain RADIATION DOSAGE (If Supplied By Facility): CTDIvol = ( 8.63 ) mGy, DLP = ( 418.33 ) mGycm TECHNIQUE: Transaxial images were obtained from the dome of the diaphragm to the symphysis pubis without oral contrast, and without intravenous contrast. Sagittal and coronal images were reconstructed. Individualized dose optimization techniques were used for this CT. COMPARISON: None. FINDINGS: The visualized lung bases are unremarkable. The visualized portions of the heart are within normal limits. Normal liver. The gallbladder is not visualized and most likely status post cholecystectomy. Normal spleen. Normal pancreas. Normal bilateral adrenal glands. Normal right kidney. Normal left kidney. Normal visualized stomach. Normal small intestine. There are scattered colonic diverticula consistent with diverticulosis. There are surgical clips in the region of the appendix consistent with a prior appendectomy. Normal abdominal aorta. Normal inferior vena cava. Normal retroperitoneum. Normal urinary bladder. Normal abdominal wall. Normal osseous structures. CT/Abdomen/Pelvis without Cont IMPRESSION: Status post cholecystectomy and appendectomy. No acute abnormality is seen. Sigmoid diverticulosis. Electronically Signed: Alban Monzon MD at 9:40 EDT Reading Location ID and State: [address] [place] [address] , Service support , CC: Dr. Swapnil Teixeira MD; ZACHARY Rhodes [employer] T[employer]: Signed Normal [facility] Absolute lymphocyte countOrd ered By: Swapnil Teixeira on 12-01-2023 Lymphocytes Auto (Unsp spec) [#/Vol] 1.52 10*3/uL 0.83-4.51 [facility] Automated lymphocyte count a s percentage of total leukocytesOrdered By: Swapnil Teixeira on 12-01-2023 Lymphocytes/100 WBC Auto (Unsp spec) 23.3 % 19-41 [facility] Basophil percentageOrdered B y: Swapnil Teixeira on 04-11-2024 Basophil percentage 0 SEEN /hpf 0-5 [facility] Basophils/100 WBC (Bld) 0.5 % 0-1 [facility] Bilirubin [Mass/Vol] 0.70 mg/dL 0.20-1.00 [facility] Comment on above: For patients on eltr ombopag therapy, use of Dimension [place] TBIL is not recommended. Chloride [Moles/Vol] 113 mmol/L 98-107 [facility] Eosinophils/100 WBC (Bld) 1.5 % 0-5 [facility] Glucose [Mass/Vol] 99 mg/dL 74-106 [facility] Hemoglobin (Bld) [Mass/Vol] 14.0 g/dL 12.0-15.0 [facility] Monocytes/100 WBC (Bld) 6.0 % 0-10 [facility] Neutrophils (Bld) [#/Vol] 4.5 10*3/uL 2.0-7.7 [facility] Neutrophils/100 WBC (Bld) 68.5 % 47-70 [facility] Potassium [Moles/Vol] 3.9 mmol/L 3.5-5.1 [facility] Protein [Mass/Vol] 7.0 g/dL 6.4-8.2 [facility] Sodium [Moles/Vol] 140 mmol/L 136-145 [facility] WBC (Bld) [#/Vol] 6.5 10*3/uL 4.4-11.0 [facility] Bilirubin Test strip Ql (U)O rdered By: Swapnil Teixeira on 12-01-2023 Bilirubin Ql (U) Negative Negative [facility] CBC W/Diff, Automatedon 11-20 Absolute Lymph 1.52 X10 3/uL Normal 0.83-4.51 [facility] Comment on above: Performed By: #### L 100.0100, L500.4050 #### [facility] Laboratory [address] [place], [place], [id number] Absolute Neut 4.5 X10 3/uL Normal 2.0-7.7 [facility] Comment on above: Performed By: #### L 100.0100, L500.4050 #### [facility] [address] [place], [address] Basophils/100 WBC (Bld) 0.5 % Normal 0-1 [facility] Comment on above: Performed By: #### L 100.0100, L500.4050 #### [facility] [address] [place], [address] Eosinophils/100 WBC (Bld) 1.5 % Normal 0-5 [facility] Comment on above: Performed By: #### L 100.0100, L500.4050 #### [facility] [address] [place], [address] Erythrocyte distribution width (RBC) [Ratio] 13.3 % Normal 11.6-14.6 [facility] Comment on above: Performed By: #### L 100.0100, L500.4050 #### [facility] [address] [place], [address] Hematocrit (Bld) [Volume fraction] 41.9 % Normal 37-47 [facility] Comment on above: Performed By: #### L 100.0100, L500.4050 #### [facility] [address] [place], [address] Hemoglobin (Bld) [Mass/Vol] 14.0 g/dL Normal 12.0-15.0 [facility] Comment on above: Performed By: #### L 100.0100, L500.4050 #### [facility] [address] [place], [address] IG% 0.200 Normal 0.0-0.9 [facility] Comment on above: Result Comment: IG% - Immature Granulocytes (promyelocytes, myelocytes and metamyelocytes) > 1% indicates that a LEFT SHIFT is Present. Performed By: #### L 100.0100, L500.4050 #### [facility] [address] [place], [address] Lymphocytes/100 WBC (Bld) 23.3 % Normal 19-41 [facility] Comment on above: Performed By: #### L 100.0100, L500.4050 #### [facility] [address] [place], [address] MCH (RBC) [Entitic mass] 31.0 pg Normal 27.0-32.0 [facility] Comment on above: Performed By: #### L 100.0100, L500.4050 #### [facility] [address] [place], [address] MCHC (RBC) [Mass/Vol] 33.4 g/dL Normal 32-36 [facility] Comment on above: Performed By: #### L 100.0100, L500.4050 #### [facility] [address] [place], [address] MCV (RBC) [Entitic vol] 92.9 fL Normal 81-99 [facility] Comment on above: Performed By: #### L 100.0100, L500.4050 #### [facility] [address] [place], [address] Monocytes/100 WBC (Bld) 6.0 % Normal 0-10 [facility] Comment on above: Performed By: #### L 100.0100, L500.4050 #### [facility] [address] [place], [address] Neutrophils/100 WBC (Bld) 68.5 % Normal 47-70 [facility] Comment on above: Performed By: #### L 100.0100, L500.4050 #### [facility] [address] [place], [address] Nucleated RBC (Bld) [#/Vol] 0 10*3/uL Normal 0-5 [facility] Comment on above: Performed By: #### L 100.0100, L500.4050 #### [facility] [address] [place], [address] Platelet mean volume (Bld) [Entitic vol] 9.8 fL Normal 6.2-12.0 [facility] Comment on above: Performed By: #### L 100.0100, L500.4050 #### [facility] [address] [place], [address] Platelets (Bld) [#/Vol] 197 10*3/uL Normal 150-450 [facility] Comment on above: Performed By: #### L 100.0100, L500.4050 #### [facility] [address] [place], [address] RBC (Bld) [#/Vol] 4.51 10*6/uL Normal 4.2-5.4 [facility] Comment on above: Performed By: #### L 100.0100, L500.4050 #### [facility] [address] [place], [address] RDW SD 45.1 fl High 35.1-43.9 [facility] Comment on above: Performed By: #### L 100.0100, L500.4050 #### [facility] [address] [place], [address] WBC (Bld) [#/Vol] 6.5 10*3/uL Normal 4.4-11.0 [facility] Comment on above: Performed By: #### L 100.0100, L500.4050 #### [facility] [address] [place], [address] Chest PA and Lateralon 11-30 Chest PA and Lateral [facility] Imaging Services [address] [place] [address] Chest PA and Lateral MR#: [id number] Acct: [id number] Name: MACKENZIEJENNIFER A Rep #: [id number] : 1985 F 38 From: Alban cohen MD PCP: ZACHARY Rhodes Status: REG ER Study: Chest PA and Lateral Date of Exam: 12/01/23 Exam# [id number] Ordering Dr: Swapnil Teixeira MD [id number] STUDY: X-RAY CHEST REASON FOR EXAM: Female, 38 years old. Cough, low-grade fever TECHNIQUE: PA and lateral views of the chest. COMPARISON: None. FINDINGS: The lungs are clear and expanded. There is no demonstrated pleural abnormality. Normal size heart. Normal mediastinum and radha. Normal visualized pulmonary arteries. Normal visualized aortic arch and descending thoracic aorta. Normal visualized thoracic spine. Normal visualized ribs, clavicles, and shoulders. There is no demonstrated abnormality of the visualized soft tissue structures of the upper abdomen. RAD/Chest PA and Lateral IMPRESSION: Normal x-ray examination of the chest. Electronically Signed: Alban Monzon MD at 9:41 EDT Reading Location ID and State: [address] [place] [address] , Service support , CC: Dr. Swapnil Teixeira MD; ZACHARY Rhodes [employer] Tender: Signed Normal [facility] Comprehensive Metabolic Prof ilon 12-01-2023 Albumin [Mass/Vol] 3.9 g/dL Normal 3.2-5.0 [facility] Comment on above: Performed By: #### L 100.0100, L500.4050 #### [facility] [address] [place], [address] Albumin/Globulin [Mass ratio] 1.3 {ratio} Normal 0.9-2.4 [facility] Comment on above: Performed By: #### L 100.0100, L500.4050 #### [facility] [address] [place], [address] ALK P 37 U/L Low 45-117 [facility] Comment on above: Performed By: #### L 100.0100, L500.4050 #### [facility] [address] [place], [address] ALT [Catalytic activity/Vol] 18 U/L Normal 13-56 [facility] Comment on above: Performed By: #### L 100.0100, L500.4050 #### [facility] [address] [place], [address] AST [Catalytic activity/Vol] 10 U/L Low 15-37 [facility] Comment on above: Performed By: #### L 100.0100, L500.4050 #### [facility] [address] [place], [address] Bilirubin [Mass/Vol] 0.70 mg/dL Normal 0.20-1.00 [facility] Comment on above: Result Comment: For patients on eltrombopag therapy, use of Dimension [place] TBIL is not recommended. Performed By: #### L 100.0100, L500.4050 #### [facility] [address] [place], [address] BUN/CRE 15.6 RATIO Normal 10-20 [facility] Comment on above: Performed By: #### L 100.0100, L500.4050 #### [facility] [address] [place], [address] CA,Total 8.8 mg/dL Normal 8.5-10.1 [facility] Comment on above: Performed By: #### L 100.0100, L500.4050 #### [facility] [address] [place], [address] Chloride [Moles/Vol] 113 mmol/L High 98-107 [facility] Comment on above: Performed By: #### L 100.0100, L500.4050 #### [facility] [address] [place], [address] CO2 [Moles/Vol] 25.0 mmol/L Normal 21.0-32.0 [facility] Comment on above: Performed By: #### L 100.0100, L500.4050 #### [facility] [address] [place], [address] Creatinine [Mass/Vol] 0.83 mg/dL Normal 0.55-1.02 [facility] Comment on above: Result Comment: The validity of the calculated GFR GFRAA in patients over 70 years has not been determined. Clinical correlation is essential. Performed By: #### L 100.0100, L500.4050 #### [facility] [address] [place], [address] ECRCL 85.06 ml/min Normal [facility] Comment on above: Performed By: #### L 100.0100, L500.4050 #### [facility] [address] [place], [address] EST GFR - AA 98 mL/min Normal >60 [facility] Comment on above: Result Comment: Afri can [place] GFR Calc Performed By: #### L 100.0100, L500.4050 #### [facility] [address] [place], [address] GAP 2 Low 5-15 [facility] Comment on above: Performed By: #### L 100.0100, L500.4050 #### [facility] [address] [place], [address] GFR/1.73 sq M.predicted among non-blacks MDRD (S/P/Bld) [Vol rate/Area] 81 mL/min/{1.73_m2} Normal >60 [facility] Comment on above: Result Comment: Non- GFR Calc Performed By: #### L 100.0100, L500.4050 #### [facility] [address] [place], [address] Globulin (S) [Mass/Vol] 3.1 g/dL Normal 2.2-4.2 [facility] Comment on above: Performed By: #### L 100.0100, L500.4050 #### [facility] [address] [place], [address] Glucose [Mass/Vol] 99 mg/dL Normal 74-106 [facility] Comment on above: Performed By: #### L 100.0100, L500.4050 #### [facility] [address] [place], [address] Potassium [Moles/Vol] 3.9 mmol/L Normal 3.5-5.1 [facility] Comment on above: Performed By: #### L 100.0100, L500.4050 #### [facility] [address] [place], [address] Sodium [Moles/Vol] 140 mmol/L Normal 136-145 [facility] Comment on above: Performed By: #### L 100.0100, L500.4050 #### [facility] [address] [place], [address] T PROT 7.0 g/dL Normal 6.4-8.2 [facility] Comment on above: Performed By: #### L 100.0100, L500.4050 #### [facility] [address] [place], [address] Urea nitrogen [Mass/Vol] 13 mg/dL Normal 7-18 [facility] Comment on above: Performed By: #### L 100.0100, L500.4050 #### [facility] [address] [place], [address] Determination of erythrocyte mean corpuscular volume (MCV)Ordered By: Swapnil Teixeira on 12-01-2023 MCV (RBC) [Entitic vol] 92.9 fL 81-99 [facility] Emergency Department Summary on 12-01-[address] [facility] Medical Records Department [address] [place] [address] Emergency Department Summary 12/01/23 MR#: [id number] Acct: [id number] Name: JENNIFER DEL VALLE Rep #: [id number] : 1985 38 From: Swapnil Teixeira MD PCP: ZACHARY Rhodes Status:REG ER Location: ED HPI History of Present Illness Chief Complaint: Other, Pain/Inj Informant: patient Narrative Narrative: 38-year-old female states that she has painful lymphadenopathy for the past 3 weeks. This has been episodic for about 5 years. She has seen doctors, had workup, seeing endocrine, she had lots of testing including dissection and pathology of the lymph node, which ended up showing that it was a reactive node. She states for the past 3 weeks she has really been sore in her left axilla, left groin and inner thigh, and in the last week or so her left abdomen is really been hurting. Nauseated but no vomiting or diarrhea or blood. No melena. Low-grade fevers in the 99 range. Minor cough. [facility] Medical History (Updated 12/01/23 @ 10:[address] Swapnil Teixeira MD) Back pain Migraines Home Medications rizatriptan 5 mg tablet 5 mg PO .X1 PRN 11/27/15 [History Last Taken 11/25/15] citalopram 10 mg tablet 10 mg PO DAILY 10/28/16 [History Last Taken Unknown] meloxicam 15 mg tablet 15 mg PO DAILY #30 tabs 10/29/16 [Rx Last Taken Unknown] metaxalone 800 mg tablet 800 mg PO 4X/DAY PRN PRN Headache #60 tabs 10/29/16 [Rx Last Taken Unknown] nortriptyline 25 mg capsule 50 mg (2 x 25 mg) PO QHS ##60 10/29/16 [Rx Last Taken Unknown] tramadol 50 mg tablet 100 mg (2 x 50 mg) PO Q6H PRN PRN Pain #60 tabs 10/29/16 [Rx Last Taken Unknown] dicyclomine 10 mg capsule 20 mg (2 x 10 mg) PO Q6H PRN PRN abdominal pain #20 CAPSULES 12/01/23 [Rx Last Taken Unknown] tramadol 50 mg tablet 50 mg PO Q6H PRN pain 3 days #12 tabs 12/01/23 [Rx Last Taken Unknown] Allergy/AdvReac Type Severity Reaction Status Date / Time amitriptyline Allergy tachycardia, Verified 12/01/23 07:49 chest tightness Social History Smoking Status: Current every day smoker tobacco type: cigarettes ROS ROS ED Constitutional Constitutional ED: Reports fatigue and fever(s); Denies chills Eyes Eyes: Denies change in vision or diplopia ENT ENT ED: Denies rhinorrhea or sore throat Cardiovascular Cardiovascular: Denies chest pain or palpitations Respiratory/Chest Respiratory/Chest: Reports cough; Denies dyspnea Gastrointestinal Gastrointestinal: Reports abdominal pain; Denies diarrhea, hematochezia, melena, nausea or vomiting Genitourinary Genitourinary ED: Denies dysuria or hematuria Musculoskeletal Musculoskeletal: Reports back pain; Denies neck pain Integumentary Denies abscess or rash Neurologic Neurologic: Denies headache(s), paresthesias or weakness Psychiatric Psychiatric: Denies anxiety or suicidal thoughts Hematologic/Lymphatic Hematologic/Lymphatic: Reports as per HPI and lymphadenopathy; Denies easy bleeding or easy bruising EXAM Physical Exam Const Vital Signs: 12/01/23 07:48 12/01/23 09:45 Temperature 99 F Temperature Source Temporal Pulse Rate 91 90 Respiratory Rate 18 18 Blood Pressure 155/85 H 152/82 H Blood Pressure Mean 108 105 Pulse Ox 100 99 Oxygen Delivery Method Room Air Room Air Positive well nourished and well developed General Appearance ED: well developed and NAD HEENT Reports moist mucous membranes HEENT Narrative: POP clear. No stridor. normocephalic and atraumatic Eyes PERRL and EOMs intact bilaterally Neck full ROM, no lymphadenopathy and supple Chest Wall inspection of chest normal and palpation of chest normal Resp normal respiratory effort and clear to auscultation bilaterally Cardio regular rate, regular rhythm and no murmurs GI non-distended GI Narrative: very tender LUQ. No guarding/rebound. Otherwise, NT. Auscultation: normoactive bowel sounds Palpation: soft Back/Spine no CVA tenderness General Back: other FROM Extremity normal to inspection General Extremety ED: Negative for edema, pulses abnormal or tenderness General Extremity: Negative for edema or pulses abnormal Neuro oriented x3, CN's II-XII intact bilaterally and no sensory deficits noted Sensorium / Orientation: awake and alert Motor Exam: strength 5/5 throughout Psych mental status grossly normal Skin no rashes or lesions noted and no wounds MDM MDM MDM Narrative Medical decision making narrative: Patient concern about lymphadenopathy. I do not palpate any abnormal lymphadenopathy, the symptoms she is having of due to lymph nodes, suggest reactive lymphadenopathy, which she states basically was already proven with a biopsy but still she is concerned about lymphoma. We discussed what lymph nodes due to lymphoma typically ar (more content not included)... Normal [facility] Erythrocyte distribution wid th ratioOrdered By: Swapnil Teixeira on 12-01-2023 Erythrocyte distribution width (RBC) [Ratio] 13.3 % 11.6-14.6 [facility] Erythrocyte distribution wid th standard deviationOrdered By: Swapnil Teixeira on 12-01-2023 Erythrocyte distribution width (RBC) [Entitic vol] 45.1 fL 35.1-43.9 [facility] Hematocrit Auto (Bld) [Volum e fraction]Ordered By: Swapnil Teixeira on 12-01-2023 Hematocrit (Bld) [Volume fraction] 41.9 % 37-47 [facility] Immature granulocytes/100 WB C Auto (Bld)Ordered By: Swapnil Teixeira on 12-01-2023 Immature granulocytes/100 WBC (Bld) 0.200 % 0.0-0.9 [facility] Comment on above: IG% - Immature Granu locytes (promyelocytes, myelocytes and metamyelocytes) > 1% indicates that a LEFT SHIFT is Present. Ketones Test strip Ql (U)Ord ered By: Swapnil Teixeira on 12-01-2023 Ketones Ql (U) 5 mg/dl Negative [facility] Laboratory - Chemistry and C hemistry - challengeOrdered By: Swapnil Teixeira on 12-01-2023 Albumin/Globulin [Mass ratio] 1.3 {ratio} 0.9-2.4 [facility] ALP [Catalytic activity/Vol] 37 U/L 45-117 [facility] ALT [Catalytic activity/Vol] 18 U/L 13-56 [facility] CO2 [Moles/Vol] 25.0 mmol/L 21.0-32.0 [facility] Globulin (S) [Mass/Vol] 3.1 g/dL 2.2-4.2 [facility] Urea nitrogen/Creatinine [Mass ratio] 15.6 mg/mg 10-20 [facility] Laboratory - Hematology and Cell countsOrdered By: Swapnil Teixeira on 12-01-2023 MCH (RBC) [Entitic mass] 31.0 pg 27.0-32.0 [facility] MCHC (RBC) [Mass/Vol] 33.4 g/dL 32-36 [facility] Nucleated RBC/100 WBC (Bld) [Ratio] 0 % 0-5 [facility] Platelet mean volume (Bld) [Entitic vol] 9.8 fL 6.2-12.0 [facility] Platelets (Bld) [#/Vol] 197 10*3/uL 150-450 [facility] Laboratory - Microbiology an d Antimicrobial susceptibilityOrdered By: Swapnil Teixeira on 12-01-2023 SARS-CoV-2 (COVID-19) RNA EVANGELIST+probe Ql (Unsp spec) [facility] M100.678on 12-01-2023 M100.678 Normal Reference Ran ge = Negative COV + FLU + RSV PCR GeneXpert Instrument, PCR method SARS-CoV-2 (COVID 19) Negative INFLUENZA A Negative INFLUENZA B Negative RSV PCR Negative Normal [facility] Comment on above: Performed By: #### M 100.678 #### [facility] [address] [place] [address], [address] Mucus LM Ql (Urine sed)Order ed By: Swapnil Teixeira on 12-01-2023 Mucus Ql (Urine sed) 1+ /hpf [facility] Nitrite Test strip Ql (U)Ord ered By: Swapnil Teixeira on 12-01-2023 Nitrite Ql (U) Negative Negative [facility] No Panel InformationOrdered By: Swapnil Teixeira on 12-01-2023 Urine RBC 0-5 SEEN /hpf 0-5 [facility] Estimated Creatinine Clearance Calc 85.06 ml/min [facility] Estimated GFR (MDRD) Amer 98 mL/min >60 [facility] Comment on above: GFR Calc Estimated GFR (MDRD) Non-Af Amer 81 mL/min >60 [facility] Comment on above: Non- GFR Calc Protein Test strip Ql (U)Ord ered By: Swapnil Teixeira on 12-01-2023 Protein Ql (U) 15 mg/dl Negative [facility] RBC Auto (Bld) [#/Vol]Ordere d By: Swapnil Teixeira on 12-01-2023 RBC (Bld) [#/Vol] 4.51 10*6/uL 4.2-5.4 [facility] Serum or plasma calcium jose urement (mass/volume)Ordered By: Swapnil Teixeira on 12-01-2023 Calcium [Mass/Vol] 8.8 mg/dL 8.5-10.1 [facility] Serum or plasma creatinine m easurement (mass/volume)Ordered By: Swapnil Teixeira on 12-01-2023 Creatinine [Mass/Vol] 0.83 mg/dL 0.55-1.02 [facility] Comment on above: The validity of the calculated GFR & GFRAA in patients over 70 years has not been determined. Clinical correlation is essential. Serum or plasma urea nitroge n measurement (mass/volume)Ordered By: Swapnil Teixeira on 12-01-2023 Urea nitrogen [Mass/Vol] 13 mg/dL 7-18 [facility] Squamous epithelial cells de tection in urine sediment by light microscopyOrdered By: Swapnil Teixeira on 12-01-2023 Epithelial cells.squamous LM Ql (Urine sed) 5-10 SEEN /hpf 5-10 [facility] Thin prep Papanicolaou smear with manual screeningOrdered By: Swapnil Teixeira on 12-01-2023 Thin prep Papanicolaou smear with manual screening 3.9 g/dL 3.2-5.0 [facility] Thin prep Papanicolaou smear with manual screening 10 U/L 15-37 [facility] Thin prep Papanicolaou smear with manual screening 2 5-15 [facility] Urinalysis, Completeon 11-30 BACTERIA 1+ /hpf Normal None Seen [facility] Comment on above: Order Comment: MARIA DOLORES CTOR TO SPECIFY Performed By: #### L 400.0001 #### [facility] [address] [place], [address] EPI,SQUAMOUS 5-10 SEEN Normal 5-10 [facility] Comment on above: Order Comment: MARIA DOLORES CTOR TO SPECIFY Performed By: #### L 400.0001 #### [facility] [address] [place], [address] Mucus Ql (Urine sed) 1+ /hpf Normal [facility] Comment on above: Order Comment: MARIA DOLORES CTOR TO SPECIFY Performed By: #### L [id number] #### [facility] [address] [place], [address] RBC 0-5 SEEN Normal 0-5 [facility] Comment on above: Order Comment: MARIA DOLORES CTOR TO SPECIFY Performed By: #### L [id number] #### [facility] [address] [place], [address] WBC 0 SEEN Normal 0-5 [facility] Comment on above: Order Comment: MARIA DOLORES CTOR TO SPECIFY Performed By: #### L [id number] #### [facility] [address] [place], [address] Urine blood detectionOrdered By: Swapnil Teixeira on 12-01-2023 RBC Ql (U) 10 /ul Negative [facility] Urine clarityOrdered By: Melody Teixeira on 12-01-2023 Clarity (U) Cloudy Clear [facility] Urine color determinationOrd ered By: Swapnil Teixeira on 12-01-2023 Color (U) Yellow Yellow [facility] Urine glucose detectionOrder ed By: Swapnil Teixeira on 12-01-2023 Glucose Ql (U) Normal mg/dl Normal [facility] Urine leukocyte esterase det ection by dipstickOrdered By: Swapnil Teixeira on 12-01-2023 Leukocyte esterase Test strip Ql (U) Negative Negative [facility] Urine pHOrdered By: Swapnil Teixeira on 12-01-2023 pH (U) 5.0 [pH] 5.0 - 8.0 [facility] Urine sediment bacteria coun t by microscopy (number/high power field)Ordered By: Swapnil Teixeira on 12-01-2023 Bacteria LM.HPF (Urine sed) [#/Area] 1 /[HPF] None Seen [facility] Urine specific gravity measu rementOrdered By: Swapnil Teixeira on 12-01-2023 Specific gravity (U) [Rel density] 1.025 1.002-1.03 0 [facility] Urine urobilinogen measureme ntOrdered By: Swapnil Teixeira on 12-01-2023 Urobilinogen Ql (U) Normal mg/dl Normal [facility] Laboratory - Chemistry and C hemistry - challengeon 06-09-2023 Albumin [Mass/Vol] 4.6 g/dL Normal 3.6 - 5.1 g/dL [facility], [facility]; [facility], [facility] Albumin/Globulin [Mass ratio] 2.0 {ratio} Normal 1.0 - 2.5 [facility]; [facility], [facility] ALP [Catalytic activity/Vol] 34 U/L Normal 31 - 125 U/L [facility]; [facility], [facility]. ALT [Catalytic activity/Vol] 10 U/L Normal 6 - 29 U/L [facility], [facility]; [facility], [facility] AST [Catalytic activity/Vol] 12 U/L Normal 10 - 30 U/L [facility], [facility].; [facility], [facility] Bilirubin [Mass/Vol] 0.8 mg/dL Normal 0.2 - 1 .2 mg/dL [facility], [facility]; [facility], [facility] Calcium [Mass/Vol] 9.1 mg/dL Normal 8.6 - 10. 2 mg/dL [facility], [facility].; [facility], [facility] Chloride [Moles/Vol] 109 mmol/L Normal 98 - 11 0 mmol/L [facility], [facility].; [facility], [facility] Cholesterol [Mass/Vol] 144 mg/dL Normal [facility]; [facility], [facility]. Cholesterol in HDL [Mass/Vol] 52 mg/dL Normal [facility].; [facility], [facility]. Cholesterol in LDL [Mass/Vol] 76 mg/dL Normal [facility], [facility].; [facility], [facility]. CO2 [Moles/Vol] 25 mmol/L Normal 20 - 32 mmol/L [facility], [facility].; [facility], [facility]. Creatinine [Mass/Vol] 0.61 mg/dL Normal 0.50 - 0.97 mg/dL [facility], [facility].; [facility], [facility]. Ferritin [Mass/Vol] 39 ng/mL Normal 16 - 154 ng/mL [facility].; [facility], [facility]. Free T4 [Mass/Vol] 1.1 ng/dL Normal 0.8 - 1.8 ng/dL [facility], [facility].; [facility], [facility]. GFR/1.73 sq M.predicted among non-blacks MDRD (S/P/Bld) [Vol rate/Area] 117 mL/min/{1.73_m2} Normal [facility].; [facility], [facility]. Glucose [Mass/Vol] 89 mg/dL Normal 65 - 99 mg/dL [facility], [facility].; [facility], [facility]. Potassium [Moles/Vol] 4.1 mmol/L Normal 3.5 - 5.3 mmol/L [facility], [facility].; [facility], [facility]. Protein [Mass/Vol] 6.9 g/dL Normal 6.1 - 8.1 g/dL [facility], [facility].; [facility] [employer], [facility]. Sodium [Moles/Vol] 143 mmol/L Normal 135 - 146 mmol/L [facility], [facility].; [facility], [facility]. Triglyceride [Mass/Vol] 77 mg/dL Normal [facility].; [facility], [facility]. TSH Qn 1.41 m[IU]/L Normal [facility], [facility].; [facility], [facility]. Urea nitrogen [Mass/Vol] 10 mg/dL Normal 7 - 25 mg/dL [facility].; [facility], [facility]. Laboratory - Hematology and Cell countson 06-09-2023 Basophils (Bld) [#/Vol] 0.033 10*3/uL Normal 0 - 200 {cells/uL} [facility].; [facility] Basophils/100 WBC (Bld) 0.5 % Normal H [facility].; [facility], [facility] Eosinophils (Bld) [#/Vol] 0.403 10*3/uL Normal 15 - 500 {cells/uL} [facility].; [facility], [facility] Eosinophils/100 WBC (Bld) 6.1 % Normal [facility]; [facility], [facility] Erythrocyte distribution width (RBC) [Ratio] 13.3 % Normal 11.0 - 15.0 % [facility].; [facility], [facility] Hematocrit (Bld) [Volume fraction] 41.7 % Normal 35.0 - 45.0 % [facility], [facility].; [facility], [facility] Hemoglobin (Bld) [Mass/Vol] 14.0 g/dL Normal 11.7 - 15.5 g/dL [facility].; [facility], [facility] Lymphocytes (Bld) [#/Vol] 2.053 10*3/uL Normal 850 - 3900 {cells/uL} [facility], [facility].; [facility], [facility]. Lymphocytes/100 WBC (Bld) 31.1 % Normal [facility].; [facility], [facility] MCH (RBC) [Entitic mass] 31.0 pg Normal 27.0 - 33.0 pg [facility].; [facility], [facility]. MCHC (RBC) [Mass/Vol] 33.6 g/dL Normal 32.0 - 36.0 g/dL [facility], [facility].; [facility], [facility]. MCV (RBC) [Entitic vol] 92.3 fL Normal 80.0 - 100.0 fL [facility], [facility].; [facility], [facility]. Monocytes (Bld) [#/Vol] 0.442 10*3/uL Normal 200 - 950 {cells/uL} [facility].; [facility], [facility]. Monocytes/100 WBC (Bld) 6.7 % Normal H [facility].; [facility] Neutrophils (Bld) [#/Vol] 3.67 10*3/uL Normal 1500 - 7800 {cells/uL} [facility]; [facility] Neutrophils/100 WBC (Bld) 55.6 % Normal [facility]; [facility] Platelet mean volume (Bld) [Entitic vol] 10.5 fL Normal 7.5 - 12.5 fL [facility]; [facility] Platelets (Bld) [#/Vol] 229 10*3/uL Normal 140 - 400 [facility]; [facility] RBC (Bld) [#/Vol] 4.52 10*6/uL Normal 3.80 - 5.10 {Million/u L} [facility]; [facility] WBC (Bld) [#/Vol] 6.6 10*3/uL Normal 3.8 - 10.8 [facility]; [facility] No Panel Informationon 06-09 BUN/CREATININE RATIO SEE NOTE: Normal 6 - 22 [facility]; [facility] CHOL/HDLC RATIO 2.8 Normal [facility]; [facility] GLOBULIN 2.3 Normal 1.9 - 3.7 [facility]; [facility] IRON, TOTAL 134 ug/dL Normal 40 - 190 ug/dL [facility]; [facility] NON HDL CHOLESTEROL 92 Normal [facility]; [facility] Laboratory - Chemistry and C hemistry - challengeon 08-25-2022 Albumin [Mass/Vol] 4.0 g/dL Normal 3.4 - 5.0 g/dL [facility]; [facility], [facility] Albumin [Mass/Vol] 1.4 g/dL Normal 0.9 - 1.6 [facility]; [facility] ALP [Catalytic activity/Vol] 44 U/L Abnormal 46 - 116 U/L [facility].; [facility], [facility]. ALT [Catalytic activity/Vol] 23 U/L Normal 14 - 59 U/L [facility].; [facility], [facility]. ALT No additional P-5'-P [Catalytic activity/Vol] 23 U/L Normal 14 - 59 U/L [facility].; [facility], [facility]. Anion gap [Moles/Vol] 13 mmol/L Normal 10 - 2 0 mmol/L [facility].; [facility], [facility]. AST [Catalytic activity/Vol] 19 U/L Normal 13 - 39 U/L [facility].; [facility], [facility]. Bilirubin [Mass/Vol] 0.4 mg/dL Normal 0.2 - 1 .0 mg/dL [facility].; [facility], [facility] Calcium [Mass/Vol] 9.0 mg/dL Normal 8.5 - 10. 1 mg/dL [facility].; [facility], [facility]. Chloride [Moles/Vol] 105 mmol/L Normal 98 - 10 7 mmol/L [facility].; [facility], [facility]. CO2 [Moles/Vol] 25.6 mmol/L Normal 21.0 - 32.0 mmol/L [facility].; [facility], [facility]. Comprehensive metabolic 2000 panel CMP with eGFR Normal [facility]; [facility], [facility] Creatinine [Mass/Vol] 0.72 mg/dL Normal 0.55 - 1.02 mg/dL [facility], [facility].; [facility], [facility]. GFR/1.73 sq M.predicted among blacks MDRD (S/P/Bld) [Vol rate/Area] mL/min/{1.73_m2} Normal 60 - 999 {ML/MINUTE } [facility], [facility].; [facility], [facility]. GFR/1.73 sq M.predicted MDRD (S/P/Bld) [Vol rate/Area] mL/min/{1.73_m2} Normal 60 - 999 {ML/MINUTE } [facility], [facility].; [facility], [facility]. Globulin (S) [Mass/Vol] 2.9 g/dL Normal 1.5 - 3.8 g/dL [facility].; [facility], [facility] Glucose [Mass/Vol] 82 mg/dL Normal 74 - 106 mg/dL [facility].; [facility], [facility] Potassium [Moles/Vol] 3.7 mmol/L Normal 3.5 - 5.1 mmol/L [facility]; [facility] Protein [Mass/Vol] 6.9 g/dL Normal 6.4 - 8.2 g/dL [facility]; [facility], [facility] Sodium [Moles/Vol] 140 mmol/L Normal 136 - 145 mmol/L [facility]; [facility] Testosterone [Mass/Vol] 26 ng/dL Normal H [facility]; [facility] TSH Qn 1.53 m[IU]/L Normal 0.34 - 5.60 {uIU/ml} [facility]; [facility] Urea nitrogen [Mass/Vol] 16 mg/dL Normal 7 - 18 mg/dL [facility]; [facility], [facility] Urea nitrogen/Creatinine [Mass ratio] 22 {ratio} Normal 0 - 30 {ratio} [facility]; [facility] Laboratory - Hematology and Cell countson 08-25-2022 Basophils (Bld) [#/Vol] 0.00 {3/UL} Normal 0.00 - 0.10 {3/UL} [facility]; [facility] Basophils/100 WBC (Bld) 0.5 % Normal 0.0 - 2.0 % [facility]; [facility] CBC W Auto Differential panel (Bld) CBC + DIFF Normal [facility]; [facility], [facility] Eosinophils (Bld) [#/Vol] 0.30 {3/UL} Normal 0.00 - 0.50 {3/UL} [facility].; [facility], [facility] Eosinophils/100 WBC (Bld) 5.1 % Normal 0.0 - 7.0 % [facility], [facility].; [facility], [facility]. Erythrocyte distribution width (RBC) [Ratio] 14.1 % Normal 12.0 - 15.6 % [facility].; [facility], [facility] Hematocrit (Bld) [Volume fraction] 39.8 % Normal 34.0 - 46.0 % [facility], [facility].; [facility], [facility] Hemoglobin (Bld) [Mass/Vol] 13.6 g/dL Normal 12.0 - 16.0 g/dL [facility], [facility].; [facility], [facility] Lymphocytes (Bld) [#/Vol] 2.00 {3/UL} Normal 0.80 - 2.80 {3/UL} [facility], [facility].; [facility], [facility]. Lymphocytes/100 WBC (Bld) 36.1 % Normal 20.0 - 45.0 % [facility], [facility].; [facility], [facility]. MCH (RBC) [Entitic mass] 32 pg Normal 27 - 33 pg [facility].; [facility], [facility]. MCHC (RBC) [Mass/Vol] 34 {X10_3} Normal 32 - 3 6 {X10_3} [facility], [facility].; [facility], [facility]. MCV (RBC) [Entitic vol] 93 fL Normal 80 - 99 fL H [facility].; [facility], [facility]. Monocytes (Bld) [#/Vol] 0.30 {3/UL} Normal 0.20 - 1.00 {3/UL} [facility], [facility].; [facility], [facility]. Monocytes/100 WBC (Bld) 5.9 % Normal 0.0 - 10.0 % [facility], [facility].; [facility], [facility]. Morphology Rey (Bld) [Interp] N/A Normal [facility].; [facility], [facility]. Neutrophils (Bld) [#/Vol] 2.90 {3/UL} Normal 1.50 - 7.10 {3/UL} [facility], [facility].; [employer], [facility]. Neutrophils/100 WBC (Bld) 52.4 % Normal 46.0 - 76.0 % [employer] Platelet mean volume (Bld) [Entitic vol] 8.4 fL Normal 6.6 - 10.5 fL [employer]. Platelets (Bld) [#/Vol] 223 {3/UL} Normal 150 - 450 {3/UL} [employer] RBC (Bld) [#/Vol] 4.28 {6/UL} Normal 4.10 - 5.30 {6/UL} [employer]. WBC (Bld) [#/Vol] 5.6 {3/UL} Normal 4.5 - 10.8 {3/UL} [employer]. No Panel Informationon 08-25 AGE 36 {years} Normal [employer] Estradiol-17B 58 pg/mL Normal [employer]. HydroxyProgesterone 28.81 ng/dL Normal [employer] MANUAL DIFF N/A Normal [employer] [facility] Cytology Reporton 2020 [facility] Cytology Report . Pathology Reports Accession: Collected Date/Time: Received Date/Time: Pathologist: [id number] 12/12/2020 10:58 EDT 12/12/2020 18:00 EDT [facility] Cytology Report SPECIMEN: Specimen Description: Liquid Prep Reflex ASCUS Specimen: Cervical Screening or Diagnostic: Screening RELEVANT HISTORY: LMP: NOT GIVEN Post menopausal bleeding: Yes [id number] SPECIMEN ADEQUACY: SATISFACTORY FOR EVALUATION ENDOCERVICAL/TRANSFORMATI ONAL ZONE COMPONENT PRESENT INTERPRETATION/RESULTS: NEGATIVE FOR INTRAEPITHELIAL LESION OR MALIGNANCY COMMENT: This Pap Test was successfully processed and evaluated with the assistance of the [employer] ThinPrep Test Imaging System. Electronically Signed by Pathology report verified by [facility] Screened by: [place] Electronically signed by Nisa NAM (ASCP) Sign-Out Date: 12/22/2020 08:42 Performing Lab: [address] Disclaimer The Pap test is a screening test for cervical cancer. As evidenced by published data, it is subject to both inherent false negative and false positive results. Your patient's results should be interpreted in context with pertinent clinical history including gynecological examination. Normal [facility] ([place] Comment on above: Performed By: #### G YCR #### [facility] [address] [place] [address] Ova and Parasite Exon 2019 Ova and Parasite Ex Specimen Desc: STOOL Sp. Request/Comment: OPKIT Culture Result NOPARA Report Status 11/14/[address] [facility] ACETAMINOPHENon 04-27-2019 Acetaminophen [Mass/Vol] ACETAMINOPHEN INTERPRETATION Significant liver damage is considered likely if drug levels are greater than 300 ug/mL at 4 hours after ingestion or levels of 50 ug/mL after 12 hours. Normal [facility] Comment on above: Performed By: #### 1 0839-9, 7-6, 3298-7, 90166-3, 36928-4, 3026-2, 35643-1 #### [facility] [address] [place] [address] Sociology Professor - Steffany KRAMER [id number] Acetaminophen [Mass/Vol] 5.4 ug/mL Low 10.0-30.0 [facility] Comment on above: Performed By: #### 1 0839-9, 7-6, 3298-7, 38135-1, 92882-4, 3026-2, 91212-1 #### [facility] [address] [place] [address] Sociology Professor - Steffany KRAMER [id number] CBC with DIFFERENTIALon Basophils (Bld) [#/Vol] 0.02 10*3/uL Normal <=0.70 [facility] Comment on above: Performed By: #### 5 7021-8 #### [facility] [address] [place] [address] Sociology Professor - Steffany KRAMRE [id number] Basophils/100 WBC (Bld) 0.4 % Normal <=2.0 [facility] Comment on above: Performed By: #### 5 7021-8 #### [facility] [address] [place] [address] Sociology Professor - Steffany PEACEIA [id number] Eosinophils (Bld) [#/Vol] 0.17 10*3/uL Normal <=0.70 [facility] Comment on above: Performed By: #### 5 7021-8 #### [place] [address] [place] [address] Sociology Professor - Steffany PEACEIA [id number] Eosinophils/100 WBC (Bld) 3.3 % Normal <=10.0 [facility] Comment on above: Performed By: #### 5 7021-8 #### [address] [place] [address] Sociology Professor - Steffany PEACEIA [id number] Erythrocyte distribution width (RBC) [Entitic vol] 45.9 fL Normal 36.4-46.3 [facility] Comment on above: Performed By: #### 5 7021-8 #### [address] [place] [address] Sociology Professor - Steffany PEACEIA [id number] Hematocrit (Bld) [Volume fraction] 38.9 % Normal 37.0-47.0 [facility] Comment on above: Performed By: #### 5 7021-8 #### [address] [place] [address] Sociology Professor - Steffany PEACEIA [id number] Hemoglobin (Bld) [Mass/Vol] 12.7 g/dL Normal 12.0-16.0 [facility] Comment on above: Performed By: #### 5 7021-8 #### [address] [facility] [place] [address] Sociology Professor - Steffany PEACEIA [id number] Immature granulocytes (Bld) [#/Vol] 0.01 10*3/uL Normal <=0.10 [facility] Comment on above: Performed By: #### 5 7021-8 #### [address] [place] [address] Sociology Professor - Steffany PEACEIA [id number] Immature granulocytes/100 WBC (Bld) 0.20 % Normal <=1.50 [facility] Comment on above: Performed By: #### 5 7021-8 #### [place] [address] [place] [address] Sociology Professor - Steffany PEACEIA [id number] Lymphocytes (Bld) [#/Vol] 2.16 10*3/uL Normal 1.20-3.40 [facility] Comment on above: Performed By: #### 5 7021-8 #### [place] [address] [place] [address] Sociology Professor - Steffany PEACEIA [id number] Lymphocytes/100 WBC (Bld) 42.0 % High 20.0-40.0 [facility] Comment on above: Performed By: #### 5 7021-8 #### [place] [address] [place] [address] Sociology Professor - Steffany PEACEIA [id number] MCH (RBC) [Entitic mass] 30.5 pg Normal 27.0-31.0 [facility] Comment on above: Performed By: #### 5 7021-8 #### [address] [place] [address] Sociology Professor - Steffany PEACEIA [id number] MCHC (RBC) [Mass/Vol] 32.6 g/dL Normal 32.0-36.0 [facility] Comment on above: Performed By: #### 5 7021-8 #### [address] [place] [address] Sociology Professor - Steffany PEACEIA [id number] MCV (RBC) [Entitic vol] 93.3 fL Normal 80.0-100.0 [facility] Comment on above: Performed By: #### 5 7021-8 #### [place] [address] [place] [address] Sociology Professor - Steffany Myles CLIA [id number] Monocytes (Bld) [#/Vol] 0.32 10*3/uL Normal 0.10-0.60 [facility] Comment on above: Performed By: #### 5 7021-8 #### [address] [place] [address] Sociology Professor - Steffany PEACEIA [id number] Monocytes/100 WBC (Bld) 6.2 % Normal <=8.0 [facility] Comment on above: Performed By: #### 5 7021-8 #### [address] [place] [address] Sociology Professor - Steffany PEACEIA [id number] Neutrophils (Bld) [#/Vol] 2.46 10*3/uL Normal 1.40-6.50 [facility] Comment on above: Performed By: #### 5 7021-8 #### [address] [place] [address] Sociology Professor - Steffany PEACEIA [id number] Neutrophils/100 WBC (Bld) 47.9 % Low 50.0-70.0 [facility] Comment on above: Performed By: #### 5 7021-8 #### [address] [place] [address] Sociology Professor - Steffany PEACEIA [id number] Nucleated RBC (Bld) [#/Vol] 0.00 10*3/uL Normal <=0.10 [facility] Comment on above: Performed By: #### 5 7021-8 #### [address] [place] [address] Sociology Professor - Steffany PEACEIA [id number] Platelet mean volume (Bld) [Entitic vol] 9.8 fL Normal 9.0-13.0 [facility] Comment on above: Performed By: #### 5 7021-8 #### [address] [place] [address] Sociology Professor - Steffany PEACEIA [id number] Platelets (Bld) [#/Vol] 151 10*3/uL Normal 130-400 [facility] Comment on above: Performed By: #### 5 7021-8 #### [facility] [address] [place] [address] Sociology Professor - Steffany KRAMER [id number] RBC (Bld) [#/Vol] 4.17 10*6/uL Normal 4.00-6.30 [facility] Comment on above: Performed By: #### 5 7021-8 #### [facility] [address] [place] [address] Sociology Professor - Steffany KRAMER [id number] WBC (Bld) [#/Vol] 5.14 10*3/uL Normal 4.80-10.80 [facility] Comment on above: Performed By: #### 5 7021-8 #### [facility] [address] [place] [address] Sociology Professor - Steffany KRAMER [id number] CKon 04-27-2019 CK [Catalytic activity/Vol] 102 U/L Normal 21-215 [facility] Comment on above: Performed By: #### 1 0839-9, 2157-6, 3298-7, 89892-2, 28837-5, 3026-2, 66620-2 #### [facility] [address] [facility]. [place] [address] Sociology Professor - Steffany KRAMER [id number] COMPREHENSIVE METABOLIC PANE Junior 04-27-2019 Albumin [Mass/Vol] 4.1 g/dL Normal 3.4-5.0 [facility] Comment on above: Performed By: #### 1 0839-9, 2157-6, 3298-7, 08873-0, 82117-5, 3026-2, 55388-5 #### [facility] [address] [place] [address] Sociology Professor - Steffany KRAMER [id number] ALP [Catalytic activity/Vol] 33 U/L Low 50-136 [facility] Comment on above: Performed By: #### 1 0839-9, 2157-6, 3298-7, 42223-3, 76313-0, 3026-2, 84046-8 #### [facility] [address] [place] [address] Sociology Professor - Steffany PEACEIA [id number] ALT [Catalytic activity/Vol] 17 U/L Normal 14-59 [facility] Comment on above: Performed By: #### 1 0839-9, 2157-6, 3298-7, 77724-1, 64945-1, 3026-2, 79011-1 #### [facility] [address] [place] [address] Sociology Professor - Steffany PEACEIA [id number] Anion gap [Moles/Vol] 6.0 mmol/L Normal <=15.0 [facility] Comment on above: Performed By: #### 1 0839-9, 2157-6, 3298-7, 45290-7, 50130-0, 3026-2, 50943-1 #### [facility] [address] [place] [address] Sociology Professor - Steffany Shar PEACEIA [id number] AST [Catalytic activity/Vol] 10 U/L Low 15-37 [facility] Comment on above: Performed By: #### 1 0839-9, 7-6, 3298-7, 98497-0, 90387-3, 3026-2, 00644-4 #### [facility] [address] [place] [address] Sociology Professor - Steffany Myles CLIA [id number] Bilirubin [Mass/Vol] 0.4 mg/dL Normal 0.2-1.0 [facility] Comment on above: Performed By: #### 1 0839-9, 2157-6, 3298-7, 04342-2, 20986-9, 3026-2, 30169-3 #### [facility] [address] [place] [address] Sociology Professor - Steffany PEACEIA [id number] Calcium [Mass/Vol] 8.5 mg/dL Normal 8.5-10.1 [facility] Comment on above: Performed By: #### 1 0839-9, 2157-6, 3298-7, 20161-8, 65383-4, 3026-2, 01541-8 #### [facility] [address] [place] [address] Sociology Professor - Steffany PEACEFL [id number] Chloride [Moles/Vol] 111 mmol/L High 98-107 [facility] Comment on above: Performed By: #### 1 0839-9, 2157-6, 3298-7, 22186-4, 18971-7, 3026-2, 49059-5 #### [facility] [address] [place] [address] Sociology Professor [facility] [id number] CO2 [Moles/Vol] 23 mmol/L Normal 21-32 [facility] Comment on above: Performed By: #### 1 0839-9, 2157-6, 3298-7, 90401-8, 57324-8, 3026-2, 50544-3 #### [facility] [address] [facility]. [place] [address] Sociology Professor - [facility] [id number] Creatinine [Mass/Vol] 0.82 mg/dL Normal 0.51-0.95 [facility] Comment on above: Performed By: #### 1 0839-9, 2157-6, 3298-7, 53083-2, 89834-2, 3026-2, 62814-1 #### [facility] [address] [facility]. [place] [address] Sociology Professor - [facility] [id number] GFR/1.73 sq M predicted among non-blacks MDRD (S/P/Bld) [Vol rate/Area] GLOMERULAR FILTRATION RATE INTERPRETATION~The eGFR is calculated using the MDRD equation.~This equation has been validated in patients with chronic kidney disease;~however, it underestimates the GFR in healthy patients with GFR's over 60 mL/min.~The equation is not valid in children under the age of 18.~NOTE: Criteria for Chronic Kidney Disease:~ ~1. Kidney damage for at least three months, as defined~by structural or functional abnormalities of the kidney,~with or without decreased glomerular filtration rate, manifested by either:~* Pathological abnormalities or~* Markers of Kidney damage, including abnormalities in~the composition of the blood or urine or abnormalities in imaging tests.~ ~2. GFR <60 mL/min/1.73 m squared for at least three months, with or without kidney damage.~ Normal [facility] Comment on above: Performed By: #### 1 0839-9, 2157-6, 3298-7, 24907-9, 39937-8, 3026-2, 50392-7 #### [facility] [address] [place] [address] Sociology Professor - Steffany KRAMER [id number] GFR/1.73 sq M.predicted MDRD (S/P/Bld) [Vol rate/Area] mL/min/{1.73_m2} Normal >=59 [facility] Comment on above: Performed By: #### 1 0839-9, 2156-6, 3298-7, 09288-3, 46132-6, 3026-2, 70877-0 #### [facility] [address] [place] [address] Sociology Professor - Steffany KRAMER [id number] Glucose [Mass/Vol] 85 mg/dL Normal 74-106 [facility] Comment on above: Performed By: #### 1 0839-9, 7-6, 3298-7, 04254-3, 56322-4, 3026-2, 25607-4 #### [facility] [address] [place] [address] Sociology Professor - Steffany KRAMER [id number] Potassium [Moles/Vol] 3.7 mmol/L Normal 3.5-5.1 [facility] Comment on above: Performed By: #### 1 0839-9, 2157-6, 3298-7, 58713-3, 20203-5, 3026-2, 52475-4 #### [facility] [address] [place] [address] Sociology Professor - Steffany KRAMER [id number] Protein [Mass/Vol] 7.0 g/dL Normal 6.4-8.2 [facility] Comment on above: Performed By: #### 1 0839-9, 2157-6, 3298-7, 39346-3, 74917-8, 3026-2, 73706-8 #### [facility] [address] [place] [address] Sociology Professor - Steffany Shar PEACEFL [id number] Sodium [Moles/Vol] 140 mmol/L Normal 136-145 [facility] Comment on above: Performed By: #### 1 0839-9, 2157-6, 3298-7, 88339-9, 25841-6, 3026-2, 90342-2 #### [facility] [address] [place] [address] Sociology Professor - [facility]anyMedical Center EnterpriseMyles [facility] [id number] Urea nitrogen [Mass/Vol] 17 mg/dL Normal 7-17 [facility] Comment on above: Performed By: #### 1 0839-9, 7-6, 3298-7, 53049-4, 75858-4, 3026-2, 61779-7 #### [facility] [address] [place] [address] Sociology Professor - [facility] [id number] LACTATEon 04-27-2019 Lactate [Moles/Vol] 0.6 mmol/L Normal 0.4-2.0 [facility] Comment on above: Performed By: #### 2 524-7 #### [facility] [address] [place] [address] Sociology Professor - [facility] [id number] MAGNESIUMon 04-27-2019 Magnesium [Mass/Vol] 2.1 mg/dL Normal 1.6-2.6 [facility] Comment on above: Performed By: #### 1 0839-9, 2157-6, 3298-7, 97743-9, 78093-4, 3026-2, 50726-9 #### [facility] [address] [place] [address] Sociology Professor - [facility] Mylesana paula KRAMER [id number] SEDIMENTATION RATEon 019 ESR (Bld) [Velocity] 5 mm/h Normal 2-15 [facility] Comment on above: Performed By: #### 3 0341-2 #### [facility] [address] [place] [address] Sociology Professor - Steffany KRAMER [id number] T4 THYROXINEon 04-27-2019 T4 [Mass/Vol] 7.3 ug/dL Normal 4.8-13.9 [facility] Comment on above: Performed By: #### 1 0839-9, 2157-6, 3298-7, 36776-7, 63690-2, 3026-2, 97722-9 #### [facility] [address] [place] [address] Sociology Professor - Steffany Mylesana paula KRAMER [id number] TROPONIN Ion 04-27-2019 Troponin I.cardiac [Mass/Vol] ng/mL Normal <=0.045 [facility] Comment on above: Performed By: #### 1 0839-9, 2157-6, 3298-7, 59745-3, 29655-0, 3026-2, 45143-2 #### [facility] [address] [place] [address] Sociology Professor - Steffany KRAMER [id number] TSH 3RD GENERATIONon 019 TSH Qn 3.020 uIU/mL Normal 0.358-3.74 0 [facility] Comment on above: Performed By: #### 1 0839-9, 2157-6, 3298-7, 97822-6, 78666-1, 3026-2, 96206-7 #### [facility] [address] [place] [address] Sociology Professor - Steffany KRAMER [id number] URINALYSISon 04-27-2019 Bacteria LM Ql (Urine sed) Negative Normal TRACE [facility] Comment on above: Performed By: #### 2 524-7 #### [facility] [address] [place] [address] Sociology Professor - Steffany KRAMER [id number] Bilirubin Test strip (U) [Mass/Vol] Negative Normal NEGATIVE [facility] Comment on above: Performed By: #### 2 524-7 #### [facility] [address] [place] [address] Sociology Professor - Steffany KRAMER [id number] Clarity (U) CLOUDY Abnormal CLEAR [facility] Comment on above: Performed By: #### 2 524-7 #### [facility] [address] [place] [address] Sociology Professor - Steffany KRAMER [id number] Color (U) ORANGE Abnormal YELLOW [facility] Comment on above: Performed By: #### 2 524-7 #### [facility] [address] [place] [address] Sociology Professor - Steffany KRAMER [id number] Epithelial cells.renal LM.HPF (Urine sed) [#/Area] 0-5 Abnormal NONE SEEN [facility] Comment on above: Performed By: #### 2 524-7 #### [facility] [address] [place] [address] Sociology Professor - Steffany KRAMER [id number] Epithelial cells.squamous LM.LPF (Urine sed) [#/Area] 6-10 Abnormal 0-5 [facility] Comment on above: Performed By: #### 2 524-7 #### [facility] [address] [place] [address] Sociology Professor - Steffany KRAMER [id number] Glucose Test strip (U) [Mass/Vol] Negative Normal NEGATIVE [facility] Comment on above: Performed By: #### 2 524-7 #### [facility] [address] [place] [address] Sociology Professor - Steffany KRAMER [id number] HMICRO MICROSCOPIC Normal [facility] Comment on above: Performed By: #### 2 524-7 #### [facility] [address] [place] [address] Sociology Professor - Steffany PEACEIA [id number] Hyaline casts (Urine sed) [#/Area] 0-8 Normal 0-8 [facility] Comment on above: Performed By: #### 2 524-7 #### [facility] [address] [place] [address] Sociology Professor - Steffany PEACEIA [id number] Ketones (U) [Mass/Vol] 1+ Abnormal NEGATIVE [facility] Comment on above: Performed By: #### 2 524-7 #### [facility] [address] [place] [address] Sociology Professor - Steffany PEACEIA [id number] Leukocyte esterase Qn (U) 1+ Abnormal TRACE [facility] Comment on above: Performed By: #### 2 524-7 #### [facility] [address] [facility] [place] [address] Sociology Professor - Steffany PEACEIA [id number] Nitrite Ql (U) Negative Normal NEGATIVE [facility] Comment on above: Performed By: #### 2 524-7 #### [facility] [address] [place] [address] Sociology Professor - Steffany KRAMER [id number] pH (U) 7.5 [pH] Normal 5.5-7.5 [facility] Comment on above: Performed By: #### 2 524-7 #### [facility] [address] [place] [address] Sociology Professor - Steffany PEACEIA [id number] Protein (U) [Mass/Vol] Negative Normal NEGATIVE [facility] Comment on above: Performed By: #### 2 524-7 #### [facility] [address] [place] [address] Sociology Professor - Steffany PEACEIA [id number] RBC (U) [#/Vol] 3+ Abnormal NEGATIVE [facility] Comment on above: Performed By: #### 2 524-7 #### [facility] [address] [place] [address] Sociology Professor - Steffany PEACEIA [id number] RBC LM.HPF (Urine sed) [#/Area] /[HPF] Abnormal 0-4 [facility] Comment on above: Performed By: #### 2 524-7 #### [facility] [address] [place] [address] Sociology Professor - Steffany Myles CLIA [id number] Specific gravity (U) [Rel density] 1.020 Normal 1.010-1.03 5 [facility] Comment on above: Performed By: #### 2 524-7 #### [place] [address] Sociology Professor - [facility]ffanyMedical Center EnterpriseMylesana paula KRAMER [id number] Urobilinogen Qn (U) 1.0 {Vero'U}/dL Normal <=1.0 [facility] Comment on above: Result Comment: 1.0 E.U./dL Performed By: #### 2 524-7 #### [place] [address] Sociology Professor - [facility] [id number] WBC LM.HPF (Urine sed) [#/Area] 10-20 Abnormal 0-5 [facility] Comment on above: Performed By: #### 2 524-7 #### [place] [address] Sociology Professor - [facility]The [facility] HospitalIA [id number] HepB SurfaceAb,Quanton 02-02 HepB SurfaceAb,Quant <8.00 Normal <8.00 [facility] Comment on above: Performed By: #### M EASLG, MUMPSG, RUBIGG #### [facility] Routine Lab [address] [place], [place] [address] #### AHBSQ #### [facility] Immunology [address] [place] [address] Measles IgG Antibodyon 02-02 Measles IgG Ab, Qual Abnormal Negative [facility] Comment on above: Result Comment: Posi tive Presence of detectable measles virus IgG antibodies. A positive result generally indicates exposure to measles virus or previous vaccination. Performed By: #### M EASLG, MUMPSG, RUBIGG #### [facility] Routine Lab [address] [place] [phone] #### AHBSQ #### [facility] Immunology [address] [place] [phone] Measles IgG Antibody 284.0 AU/mL Normal [facility] Comment on above: Performed By: #### M EASLG, MUMPSG, RUBIGG #### [facility] Routine Lab [address] [place] [phone] #### AHBSQ #### [facility] Immunology [address] [place] [phone] Mumps IgG Abon 02-02-2019 Mumps IgG Ab 114.0 AU/mL Normal [facility] Comment on above: Performed By: #### M EASLG, MUMPSG, RUBIGG #### [facility] Routine Lab [address] [place] [phone] #### AHBSQ #### [facility] Immunology [address] [place] [phone] Mumps IgG, Qual Positive Abnormal Negative [facility] Comment on above: Performed By: #### M EASLG, MUMPSG, RUBIGG #### [facility] Routine Lab [address] [place] [phone] #### AHBSQ #### [facility] Immunology [address] [place] [phone] Rubella IgG Antibodyon 02-02 Rubella IgG Ab 8.30 Index Value Normal [facility] Comment on above: Performed By: #### M EASLG, MUMPSG, RUBIGG #### [facility] Routine Lab [address] [place] [phone] #### AHBSQ #### [facility] Immunology [address] [place], [place] [address] Rubella IgG Ab, Qual Positive Abnormal Negative [facility] Comment on above: Performed By: #### M EASLG, MUMPSG, RUBIGG #### [facility] Routine Lab [address] [place], [place] [address] #### AHBSQ #### [facility] Immunology [address] [place] [address] BRIEF OP NOTon 12-28-2017 BRIEF OP NOT HNO ID: [id number] thor: Kirit Henderson (Zachary)Service: Interventional RadiologyAuthor Type: Physician AssistantType: Brief Op NoteFiled: 12/28/2017 1:15 PMNote Text:BRIEF OP NOTELOG ID: [id number]/Procedure Date: 12/28/2017Incision/Procedur e Start Time: 1:04 PMIncision Close/Procedure End Time: 1:09 PMSurgeon(s)/Proceduralis t(s) and Plate Glass Installer(s):Surgeon(s) and Role: * Mikel Saleh - Qi Henderson PA-C - AssistantProcedure(s): Therapeutic LP under fluoroAnesthesia: LocalFindings: LP at L2/L3 successful; OP = 15Estimated Blood Loss: 0 mlSpecimens: NoneComplications: NonePre-Op/Pre-Procedure Diagnosis: HeadachesPost-Op/Post-Pro cedure Diagnosis: SameSIGNATURE: Kirit Henderson PA-C PATIENT NAME: Jennifer Del ValleDATE: December 28, 2017 : 1:14 PM PAGER/CONTACT #: [phone] [facility] IR LUMBAR PUNCTURE DIAGon IR LUMBAR PUNCTURE DIAG * * *Final Repor t* * *DATE OF EXAM: Dec 28 2017 1:24PM [facility] [id number] - IR LUMBAR PUNCTURE DIAG / REASON: csf leak * * * * Physician Interpretation * * * * PROCEDURE: Therapeutic Lumbar Puncture Under Fluoroscopic GuidanceHISTORY: The patient is a 32 years year old Female who presented with chronic headache.Consent: The risks, benefits, treatment options, potential complications, equipment, and personnel to be involved were discussed (including the risks of radiation exposure, contrast and anesthesia administration) with the patient. All of her questions were answered and consent was obtained. The patient indicated she was willing to proceed.General:A) Medication Reconciliation: The patient's medications and allergies were reviewed in the electronic medical record and reconciled to the proposed procedure/treatment.B) Pre-Procedure Medications: Medication #1: NoneC) Positioning: The patient was placed prone on the Fluoroscopy table.D) The Lumbar dorsal soft tissues. were then sterile prepped and draped.E) Time Out: A time out was performed immediately prior to procedure start with the nursing, anesthesia and interventional team, correctly identifying the name, medical record number, procedure, anatomy (including marking of site and side), patient position, procedure consent form, relevant diagnostic and radiology test results, antibiotic administration, safety precautions, and procedure-specific equipment needs.Timeout Affirmation (if attending not present): PA, RN, RT present Timeout Time and Procedure Start Time: 1304F) Anesthesia Type: administration of local anesthesia. Local Anesthesia: 2% LidocaineG) Anesthesia Was Administered For A Total Of None.H) Patient Monitoring: Not applicable.TECHNIQUE/RESU LT:A) Access Site: 20 gauge spinal needle from a Midline approach at the L2-L3 level.B) Counting reference: Lumbosacral junction. For the purposes of this report, L4-5 is considered the level of the iliac crest.C) Procedure Details: Using sterile procedure, local anesthesia was introduced to the skin and subcutaneous tissues as outlined above.Therapeutic LP Details: Therapeutic Volume: 1 ml of CSF was withdrawn in a sterile fashion from the subarachnoid space and forwarded to the laboratory for analysis. No contrast was administeredOpening pressure was recorded at 15 cm F8BLasetip pressure was recorded at <9 cm H2OCSF Color: ClearD) Estimated Blood Loss: 0 mls E) Type of Removed Specimens: CSF F) Number of Specimens: NoneFluoroscopic Radiation Summary:Fluoroscopic guidance was performed in conjunction with the copier and printer field technician.Plane A, Air Kerma: 0.6 mGyDose Area Product (DAP): 176.6 mGy*xc3Fwmwci time: 0:12 min:secPost-Procedure: Conclusion: The patient was transferred to the Radiology Recovery Room in stable condition and observed for approximately 60 minutes.Immediate Complications:Patient developed headache approximately 40 minutes after the LP; patient attributed this to laying flat/supine as this often exacerbates her headaches. Furthermore she did not take caffeine supplementation today. Pain was ameliorated after sitting 30 degrees and ibuprofen 600 mg.Delayed Complications (will be reported as an addendum to the original report):None apparent at this timeProcedure End Time and Sign Out Time: 1309IMPRESSION:TECHNICALL Y SUCCESSFUL THERAPEUTIC LUMBAR PUNCTURE. Due to normal OP, further CSF was not withdrawn.Attending Physician: Dr. GrahamPlate Glass Installer: Napoleon/Carlene procedure was performed by the:Dmitry Arciniega attending radiologist performed the following procedural activities:N/ATracrowcripti onist: GERARDO Transcribe Date/Time: Dec 28 2017 3:28PDictated by : Suzy ARCINIEGA examination was interpreted and the report reviewed and electronically signed by: KIRIT HENDERSON PA-C on Dec 28 2017 3:38PM [facility] IR XR FLUORO GUIDE SPINE INJ on 12-28-2017 IR XR FLUORO GUIDE SPINE INJ * * *Final Report* * *DATE OF EXAM: Dec 28 2017 1:24PM [facility] [id number] - IR XR FLUORO GUIDE SPINE INJ / REASON: csf leak * * * * Physician Interpretation * * * * PROCEDURE: Therapeutic Lumbar Puncture Under Fluoroscopic GuidanceHISTORY: The patient is a 32 years year old Female who presented with chronic headache.Consent: The risks, benefits, treatment options, potential complications, equipment, and personnel to be involved were discussed (including the risks of radiation exposure, contrast and anesthesia administration) with the patient. All of her questions were answered and consent was obtained. The patient indicated she was willing to proceed.General:A) Medication Reconciliation: The patient's medications and allergies were reviewed in the electronic medical record and reconciled to the proposed procedure/treatment.B) Pre-Procedure Medications: Medication #1: NoneC) Positioning: The patient was placed prone on the Fluoroscopy table.D) The Lumbar dorsal soft tissues. were then sterile prepped and draped.E) Time Out: A time out was performed immediately prior to procedure start with the nursing, anesthesia and interventional team, correctly identifying the name, medical record number, procedure, anatomy (including marking of site and side), patient position, procedure consent form, relevant diagnostic and radiology test results, antibiotic administration, safety precautions, and procedure-specific equipment needs.Timeout Affirmation (if attending not present): PA, RN, RT present Timeout Time and Procedure Start Time: 1304F) Anesthesia Type: administration of local anesthesia. Local Anesthesia: 2% LidocaineG) Anesthesia Was Administered For A Total Of None.H) Patient Monitoring: Not applicable.TECHNIQUE/RESU LT:A) Access Site: 20 gauge spinal needle from a Midline approach at the L2-L3 level.B) Counting reference: Lumbosacral junction. For the purposes of this report, L4-5 is considered the level of the iliac crest.C) Procedure Details: Using sterile procedure, local anesthesia was introduced to the skin and subcutaneous tissues as outlined above.Therapeutic LP Details: Therapeutic Volume: 1 ml of CSF was withdrawn in a sterile fashion from the subarachnoid space and forwarded to the laboratory for analysis. No contrast was administeredOpening pressure was recorded at 15 cm G9VAuahgjs pressure was recorded at <9 cm H2OCSF Color: ClearD) Estimated Blood Loss: 0 mls E) Type of Removed Specimens: CSF F) Number of Specimens: NoneFluoroscopic Radiation Summary:Fluoroscopic guidance was performed in conjunction with the copier and printer field technician.Plane A, Air Kerma: 0.6 mGyDose Area Product (DAP): 176.6 mGy*ii8Ddygip time: 0:12 min:secPost-Procedure: Conclusion: The patient was transferred to the Radiology Recovery Room in stable condition and observed for approximately 60 minutes.Immediate Complications:Patient developed headache approximately 40 minutes after the LP; patient attributed this to laying flat/supine as this often exacerbates her headaches. Furthermore she did not take caffeine supplementation today. Pain was ameliorated after sitting 30 degrees and ibuprofen 600 mg.Delayed Complications (will be reported as an addendum to the original report):None apparent at this timeProcedure End Time and Sign Out Time: 1309IMPRESSION:TECHNICALL Y SUCCESSFUL THERAPEUTIC LUMBAR PUNCTURE. Due to normal OP, further CSF was not withdrawn.Attending Physician: N/A.Plate Glass Installer: N/AThe procedure was performed by the:DEEJAY ArciniegaCThe attending radiologist performed the following procedural activities:N/ATranscripti onist: GERARDO Transcribe Date/Time: Dec 28 2017 3:28PDictated by : Suzy ARCINIEGA examination was interpreted and the report reviewed and electronically signed by: KIRIT HENDERSON PA-C on Dec 28 2017 3:38PM EST [facility] PT EDon 12-28-2017 PT ED HNO ID: [id number] thor: Kenyetta Howe (Dick), RNService: RadiologyAuthor Type: Registered NurseType: Patient EducationFiled: 12/28/2017 1:08 PMNote Text:PATIENT EDUCATION TOPIC: PROCEDURE / SURGERY: Procedure/Surgery: LPPATIENT NAME: Jennifer Brown RuN: [id number] LOCATION: INTERVENTIONAL RADIOL*READINESS TO LEARNCOGNITIVE ABILITY: Alert and orientedMOTIVATION TO LEARN: EagerInterestedFAMILY SUPPORT: Unable to assess - Family not presentINSTRUCTION PROVIDED TO: PatientPATIENT LEARNS BEST BY: Individual InstructionWritten Instruction - Hand-outsVerbal InstructionFACTORS AFFECTING LEARNING: NonePHYSICAL LIMITATIONS AFFECTING LEARNING: NoneLEARNING RESPONSEDIAGNOSIS: ADULT: LPPATIENT/FAMILY RESPONSE: Verbalizes understanding of: POST-PROCEDUREINSTRUCTION S-Correct actions to take to reduce post procedurecomplicationsPRE -PROCEDURE INSTRUCTIONS-Correct action to take to follow pre-procedureinstructions METHOD OF INSTRUCTION: Individual instructionWritten instruction - handoutsVerbal instructionFOLLOW-UP PLAN: Follow-up with Primary CareINSTRUCTIONAL AIDS USED: NASUPPLEMENTAL MATERIAL PROVIDED TO PATIENT: NoneREFERRAL (RECOMMENDATION): NoneElectronically Signed By: Kenyetta Howe RN [facility] ETTA NATHJENNIFER Brown ([id number]) 1985 FDate Time Provider Department12/27/17 JANENE CALDERÓN (CRYSTAL) FVFXRY During your visit today, we recorded the following information about you:Allergies As of Date: 12/27/2017 Noted Allergy ReactionAMITRIPTYLINE 05/11/2016 14 - Other: See Comments Comments: TachycardiaDate Reviewed: 12/15/2017Reviewed by: Rekha DAS StudentLina - Fully AssessedReason for Visit: Reminder Call [[id number]] Cmt: called to remind patient of arrivial time to 1st floor radiology for her lumbar puncture. patient verbalized understanding of all instructions.Prescription s as of 12/27/2017 Sig: GABAPENTIN 300 MG CAPSULE Take 1 capsule by mouth three* RIZATRIPTAN 5 MG DISINTEGRATI* Take 1 tablet by mouth as nee* ONDANSETRON 4 MG DISINTEGRATI* Take 1 tablet by mouth every * HYDROXYCHLOROQUINE 200 MG TAB* Take 1 tablet by mouth twice * COMPOUNDED PRESCRIPTION Jet Alert Caffeine OTC - 1-2 *Problem List As Of Date 12/27/2017 Noted Resolved DEPRESS PSYCHOSIS-UNSPEC [F32.9] INVALID FOR* Headache [R51] INVALID FOR* Status:Closed by JANENE MOREAU on 12/27/17 [facility] HOSPon 12-15-2017 HOSP Patient:Etta nath,[facility] AMRN: Height:5' 3(1.6 m)Weight:168 lb (76.204 kg)Outpatient Medications as of 12/28/17:gabapentin (NEURONTIN) 300 mg capsulerizatriptan (MAXALT SUPERVISOR ELECTROLYTIC TINNING) 5 mg disintegrating tabletondansetron orally disintegrating (ZOFRAN ODT) 4 mg disintegrating tablethydroxychloroquine (PLAQUENIL) 200 mg tabletCOMPOUNDED PRESCRIPTIONAdmission/Cli dick Administered Medications as of 12/28/17:Patient has no admission medications.Problem List:Major depressive disorder, single episode, unspecified [F32.9]Headache [R51]Allergies:Amitriptyl ineDate Verified: 12/28/17Lab ValuesNo results within the last 30 days for the following basenames: K,HCTProgress Notes (NEUS FRVW):Shelia Philippe (Chente) 12/15/2017 9:44 AM SignedCC : Bunnyt with a chief complaint of positional headaches.Interval HPI : Ms. Del Valle is 32 year old female with complaints ofabove. 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 A CTmyelogram was done last March which identified two areas of suspicion at L1-2and L2-3. 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 She has had fluid coming out of herL ear for years, over the last year it started on the right. She has also hadleakage down the back of her throat which has a metallic taste and this alsochanges her sense of smell. She has a maxillary cyst which has doubled in sizein the last 2 years and this also looks as though there is some bonedeterioration. She is a smoker, 1/2 ppd. No allergies. Not prone to sinusinfections. She has headaches every day. Back of the head and neck. She hasbeen on at least 20 different medications for this. She states that the onlything that helps is lying down and taking caffeine. She has been dx'd withmanydifferent things including migraines, cervicogenic ott's, as well as othertypes of ott's. At the time of the CT myelogram her OP was 21 and closingpressure 29. She has a h/o losing 63 lbs from 2014 - 2015. She has visualproblems, double vision, blurry vision, floaters in her eyes. In April she had a blood patch and the ott's were gone for 3 mos. She has hadmultiple other blood patches which seems to have helped for some time. The lastone she had in June caused a high pressure ott. Mother is taking diamox forretinitis.ROS: see chartCurrent Medications : all meds are on the chart and have been reviewed by me.No change.Allergies : allergies are on the chart and have been reviewed by me. Paul.EXAM :General Apparance : Alert,NADHENT : Normocephalicears normalNECKsoft and no JVD notedEyes : PERRL,EOMI ,no papilledema noted on gross examCranial nerves II - XII intactPast pointing : normalFinger to nose : normalGait : steady coordinatedRapid alternating movements : NormalCoordination : NormalStrength : normal and symmetricAssessment :Pt seen and examined with Dr. Kelly. All recommendations discussed with andinitiated by Dr. Kelly.? CSF leakChronic ott'sVisual problems? IIhPlan :Work up for low pressure haOphthalmology for papilledemaMRI brain for further evaluation of low pressureIR LP for pressure measurementSJhonny Arevalo [id number] AMDemar Kelly 12/15/2017 9:44 AM SignedSeen with husbandExtensive previous history of evaluation for occipital OTT that reportedlyimproves with lying down and caffeienHPISevereal years HAFluid leaking from ears, throatMultiple opinion from physicians in [facility] Neurology, ENT and Neurosurgery opinionsCurrentlyNo papilledemaTM intact bilaterally, no leakage/inflammationNeuro logically intact including Visual rodriguez fullMRI brain ,T/S and L/S (All 2015 or before)No signs of low ICPSmall ventriclesNo tethering, no cystsL5/S1 DDD, no stenosisNo SMMaxillary mucosal thickeningAPFindings explainedLP for pressure, neuro-optho, MRI brainConsider high/low ICP, cervicogenic HAFU when studies completeSaelaine Kelly MDFindings explained Normal [facility] Vital Signs Date Time Vital Sign Value Performing Clinician Facility 03-07-2025 17:36-0400 Body temperature 98 [degF] Fiorella Bradley PA Work Phone: [facility] 03-07-2025 17:36-0400 Diastolic blood pressure 67 mm[Hg] Fiorella Bradley PA Work Phone: [facility] 03-07-2025 17:36-0400 Heart rate 60 /min Fiorella Bradley PA Work Phone: [facility] 03-07-2025 17:36-0400 Respiratory rate 16 /min Fiorella Bradley PA Work Phone: [facility] 03-07-2025 17:36-0400 SaO2% (BldA) [Mass fraction] 99 % Fiorella Bradley PA Work Phone: [facility] 03-07-2025 17:36-0400 Systolic blood pressure 106 mm[Hg] Fiorella Bradley PA Work Phone: [facility] 03-07-2025 12:55-0400 Body height 160.02 cm Fiorella Bradley PA Work Phone: [facility] 03-07-2025 12:55-0400 Body mass index (BMI) [Ratio] 30.9 kg/m2 Fiorella Bradley PA Work Phone: [facility] 03-07-2025 12:55-0400 Body weight 79.03 kg Fiorella Bradley PA Work Phone: [facility] 01-11-2025 08:54-0400 Body height 165.1 cm Keturah Baer [facility], [facility].; [facility], [facility]. 01-11-2025 08:54-0400 Body mass index (BMI) [Ratio] 28.62 kg/m2 Keturah Baer [facility] [employer] [facility], [facility]. 01-11-2025 08:54-0400 Body surface area Derived from formula 1.86 m2 Keturah Baer [facility], [facility].; [employer] [facility], [facility]. 01-11-2025 08:54-0400 Body weight 78.02 kg Keturah Buffy [facility], [facility].; [employer] 01-11-2025 08:54-0400 Diastolic blood pressure 85 mm[Hg] Keturah Baer [facility] [employer] Comment on above: Patient Position: Sitting; Cuff Location : Left Arm; Cuff Size: Large 01-11-2025 08:54-0400 Heart rate 71 /min Keturah Baer [facility] [employer] Comment on above: Pattern: Regular 01-11-2025 08:54-0400 Systolic blood pressure 134 mm[Hg] Keturah Ba[facility], [facility] [employer] Comment on above: Patient Position: Sitting; Cuff Location : Left Arm; Cuff Size: Large 10-17-2024 09:07-0500 Body height 165.1 cm Regina Nelson LPN [facility], [facility].; [facility] Hospital[facility] [employer] [facility]. 10-17-2024 09:07-0500 Body mass index (BMI) [Ratio] 28.29 kg/m2 Regina Nelson [facility], [facility].; [facility] Hospital[facility] 10-17-2024 09:07-0500 Body surface area Derived from formula 1.85 m2 Regina Murciaach [facility].; [employer] [facility]. 10-17-2024 09:07-0500 Body temperature 98.6 [degF] Regina Nelson [facility].; [employer] [facility] Comment on above: Method: Tympanic 10-17-2024 09:07-0500 Body weight 77.11 kg Regina Nelson [facility].; [employer] [facility] 10-17-2024 09:07-0500 Diastolic blood pressure 80 mm[Hg] Regina Nelson [facility].; [employer] Comment on above: Patient Position: Sitting; Cuff Location : Left Arm; Cuff Size: Standard 10-17-2024 09:07-0500 Heart rate 84 /min Regina Nelson [facility], [facility].; [employer] Comment on above: Pattern: Regular 10-17-2024 09:07-0500 Inhaled oxygen concentration 21 % Regina Paniagua Omar [facility].; [employer] Comment on above: Room air 10-17-2024 09:07-0500 SaO2% (BldA) [Mass fraction] 98 % Regina Nelson [facility].; [employer] [facility] 10-17-2024 09:07-0500 Systolic blood pressure 115 mm[Hg] Regina Nelson [facility].; [employer]. Comment on above: Patient Position: Sitting; Cuff Location : Left Arm; Cuff Size: Standard 01-24-2024 13:59-0400 Body mass index (BMI) [Ratio] 29.05 kg/m2 Edd Negro MD Work Phone: [facility] 01-24-2024 13:59-0400 Body weight 74.39 kg Edd Negro MD Work Phone: [facility] 01-24-2024 13:59-0400 Diastolic blood pressure 84 mm[Hg] Edd Negro MD Work Phone: [facility] 01-24-2024 13:59-0400 Heart rate 78 /min Edd Negro MD Work Phone: [facility] 01-24-2024 13:59-0400 Systolic blood pressure 129 mm[Hg] Edd Negro MD Work Phone: [facility] 12-23-2023 09:41-0400 Body height 165.1 cm Leyda Brown ACRYLIC FABRICATOR [facility], [facility].; [facility], [facility]. 12-23-2023 09:41-0400 Body mass index (BMI) [Ratio] 25.46 kg/m2 Leyda Brown [facility], [facility].; [facility] [employer] [facility] [employer] 12-23-2023 09:41-0400 Body surface area Derived from formula 1.77 m2 Leyda Brown [facility], [facility].; [employer] [facility] [employer] 12-23-2023 09:41-0400 Body temperature 98.7 [degF] Leyda Brown [facility], [facility].; [facility] [facility], [employer]. Comment on above: Method: Tympanic 12-23-2023 09:41-0400 Body weight 69.4 kg Leyda Brown ACRYLIC FABRICATOR [facility], [facility].; [employer] [facility] 12-23-2023 09:41-0400 Diastolic blood pressure 89 mm[Hg] Leydamarisol Brown [facility], [facility].; [employer], [employer]. Comment on above: Patient Position: Sitting; Cuff Location : Left Arm; Cuff Size: Standard 12-23-2023 09:41-0400 Heart rate 80 /min Leyda Brown ACRYLIC FABRICATOR [facility], [facility].; [employer]. Comment on above: Pattern: Regular 12-23-2023 09:41-0400 Systolic blood pressure 129 mm[Hg] Leyda Brown [facility], [facility].; [employer] [facility] HospitalBl[facility] Comment on above: Patient Position: Sitting; Cuff Location : Left Arm; Cuff Size: Standard 12-14-2023 10:35-0400 Body height 165.1 cm Regina Paniagua Omar [facility], [facility].; [employer] [facility] Hospital[facility]. 12-14-2023 10:35-0400 Body mass index (BMI) [Ratio] 26.13 kg/m2 Regina Paniagua Omar [facility], [facility].; [facility], [facility]. 12-14-2023 10:35-0400 Body surface area Derived from formula 1.78 m2 Regina Paniagua Omar [facility], [facility].; [employer] [facility] Hospital[facility]. 12-14-2023 10:35-0400 Body temperature 98.1 [degF] Regina Paniagua Omar [facility], [facility].; [employer]. Comment on above: Method: Tympanic 12-14-2023 10:35-0400 Body weight 71.22 kg Regina Paniagua Omar [facility], [facility].; [employer] [facility] Hospital[facility]. 12-14-2023 10:35-0400 Diastolic blood pressure 87 mm[Hg] Regina Paniagua Omar [facility], [facility].; [employer]. Comment on above: Patient Position: Sitting; Cuff Location : Right Arm; Cuff Size: Standard 12-14-2023 10:35-0400 Heart rate 71 /min Regina Paniagua Omar [facility], [facility].; [employer]. Comment on above: Pattern: Regular 12-14-2023 10:35-0400 Systolic blood pressure 130 mm[Hg] Regina Cameronlabach [facility] [employer] [facility] HospitalCl[facility].; [employer]. Comment on above: Patient Position: Sitting; Cuff Location : Right Arm; Cuff Size: Standard 12-02-2023 11:03-0400 Body height 165.1 cm Leyda Brown ACRYLIC FABRICATOR [facility], [facility].; [employer]. 12-02-2023 11:03-0400 Body mass index (BMI) [Ratio] 26.13 kg/m2 [facility] [employer] 12-02-2023 11:03-0400 Body surface area Derived from formula 1.78 m2 Leyda Brown ACRYLIC FABRICATOR [facility] [employer] 12-02-2023 11:030400 Body temperature 99.8 [degF] Leyda Brown [facility] [employer], [employer]. Comment on above: Method: Tympanic 12-02-2023 11:030400 Body [facility] 71.22 [facility] [employer] 12-02-2023 11:03-0400 Diastolic blood pressure 81 mm[Hg] Leyda Brown ACRYLIC FABRICATOR [facility] [employer] Comment on above: Patient Position: Sitting; Cuff Location : Left Arm; Cuff Size: Standard 12-02-2023 11:03-0400 Heart rate 92 /min Leyda Brown ACRYLIC FABRICATOR [facility] [employer], [employer]. Comment on above: Pattern: Regular 12-02-2023 11:03-0400 Inhaled oxygen concentration 21 % Leyda Brown [facility] [employer] Comment on above: Room air 12-02-2023 11:03-0400 SaO2% (BldA) [Mass fraction] 99 % Leyda Brown [facility] [employer] 12-02-2023 11:03-0400 Systolic blood pressure 122 mm[Hg] Leyda Brown [facility] [employer], [employer]. Comment on above: Patient Position: Sitting; Cuff Location : Left Arm; Cuff Size: Standard 12-01-2023 11:02-0400 Body temperature 97.8 [degF] [facility] 12-01-2023 11:02-0400 Diastolic blood pressure 80 mm[Hg] [facility] 12-01-2023 11:02-0400 Heart rate 88 /min [facility] 12-01-2023 11:02-0400 Respiratory rate 18 /min [facility] 12-01-2023 11:02-0400 SaO2% (BldA) [Mass fraction] 99 % [facility] 12-01-2023 11:02-0400 Systolic blood pressure 150 mm[Hg] [facility] 12-01-2023 07:48-0400 Body height 160.02 cm [facility] 12-01-2023 07:48-0400 Body mass index (BMI) [Ratio] 27.6 kg/m2 [facility] 12-01-2023 07:48-0400 Body weight 70.9 kg [facility] 11-10-2023 07:57-0400 Body height 165.1 cm Regina Nelson LPN [facility] [employer] [facility] [facility], [facility]. 11-10-2023 07:57-0400 Body mass index (BMI) [Ratio] 26.96 kg/m2 Regina Nelson LPN [facility], [facility]. 11-10-2023 07:57-0400 Body surface area Derived from formula 1.81 m2 Regina Nelson LPN [facility] [employer] 11-10-2023 07:57-0400 Body weight 73.48 kg Regina Nelson ACRYLIC FABRICATOR [facility] [employer] 11-10-2023 07:57-0400 Diastolic blood pressure 79 mm[Hg] Regina Nelson LPN [facility] [employer]. Comment on above: Patient Position: Sitting; Cuff Location : Right Arm; Cuff Size: Standard 11-10-2023 07:57-0400 Heart rate 72 /min Regina Nelson LPN [employer] [facility] [employer] Comment on above: Pattern: Regular 11-10-2023 07:57-0400 Systolic blood pressure 121 mm[Hg] Regina Nelson LPN [facility] [employer] Comment on above: Patient Position: Sitting; Cuff Location : Right Arm; Cuff Size: Standard 06-09-2023 09:21-0400 Body height 165.1 cm Fiorella Shrestha Bradley PA-C Work Phone: [employer]; [employer]. 06-09-2023 09:21-0400 Body mass index (BMI) [Ratio] 26.63 kg/m2 Fiorella Fady Bradley PA-C Work Phone: [employer]; [employer]. 06-09-2023 09:[id number] Body surface area Derived from formula 1.8 m2 Fiorella Shrestha Bradley PA-C Work Phone: [employer]; [employer]. 06-09-2023 09:210400 Body temperature 98.5 [degF] Fiorella Shrestha Bradley PA-C Work Phone: [employer]; [employer]. Comment on above: Method: Tympanic 06-09-2023 09:[id number] Body weight 72.58 kg Fiorella Shrestha Bradley PA-C Work Phone: [employer]; [employer]. 06-09-2023 09:21-0400 Diastolic blood pressure 85 mm[Hg] Fiorella Fady Bradley PA-C Work Phone: [employer]; [employer]. Comment on above: Patient Position: Sitting; Cuff Location : Left Arm; Cuff Size: Standard 06-09-2023 09:21-0400 Heart rate 68 /min Fiorella Fady Bradley PA-C Work Phone: [employer]; [employer]. Comment on above: Pattern: Regular 06-09-2023 09:21-0400 Inhaled oxygen concentration 20 % Fiorella J Bradley PA-C Work Phone: [employer]; [employer]. Comment on above: Room air 06-09-2023 09:21-0400 Inhaled oxygen concentration 21 % Fiorella J Bradley PA-C Work Phone: [facility] [facility] [employer] [facility] Comment on above: Room air 06-09-2023 09:21-0400 SaO2% (BldA) [Mass fraction] 97 % Fiorella Bradley PA-C Work Phone: [employer].; [employer]. 06-09-2023 09:21-0400 Systolic blood pressure 123 mm[Hg] Fiorella Bradley PA-C Work Phone: [employer]; [employer]. Comment on above: Patient Position: Sitting; Cuff Location : Left Arm; Cuff Size: Standard 01-18-2023 10:57-0400 Body height 160 cm She [place] PA Work Phone: [employer] 01-18-2023 10:57-0400 Body mass index (BMI) [Ratio] 28.98 kg/m2 She [place] PA Work Phone: [employer] 01-18-2023 10:57-0400 Body weight 74.21 kg She [place] PA Work Phone: [employer] 01-18-2023 10:57-0400 Diastolic blood pressure 79 mm[Hg] She [place] PA Work Phone: [employer] 01-18-2023 10:57-0400 Heart rate 84 /min She [place] PA Work Phone: [employer] 01-18-2023 10:57-0400 Systolic blood pressure 118 mm[Hg] She [place] PA Work Phone: [employer] 12-20-2022 10:56-0400 Body mass index (BMI) [Ratio] 28.29 kg/m2 She [place] PA Work Phone: [employer] 12-20-2022 10:56-0400 Body weight 72.44 kg She [place] PA Work Phone: [employer] 12-20-2022 10:56-0400 Diastolic blood pressure 82 mm[Hg] She [place] PA Work Phone: [facility] 12-20-2022 10:56-0400 Heart rate 74 /min She [place] PA Work Phone: [facility] 12-20-2022 10:56-0400 Systolic blood pressure 114 mm[Hg] She [place] PA Work Phone: [facility] 10-28-2022 12:58-0500 Body height 160 cm Edd Negro MD Work Phone: [facility] 10-28-2022 12:58-0500 Body mass index (BMI) [Ratio] 29.03 kg/m2 Edd Negro MD Work Phone: [facility] 10-28-2022 12:58-0500 Body temperature 97.2 [degF] Edd Negro MD Work Phone: [facility] 10-28-2022 12:58-0500 Body weight 74.34 kg Edd Negro MD Work Phone: [facility] 10-28-2022 12:58-0500 Diastolic blood pressure 76 mm[Hg] Edd Negro MD Work Phone: [facility] 10-28-2022 12:58-0500 Systolic blood pressure 126 mm[Hg] Edd Negro MD Work Phone: [facility] 08-05-2022 14:03-0500 Body height 165.1 cm Fiorella Bradley PA-C Work Phone: [facility]; [employer] [facility] 08-05-2022 14:03-0500 Body mass index (BMI) [Ratio] 26.63 kg/m2 Fiorella Bradley PA-C Work Phone: [employer].; [employer] [facility]. 08-05-2022 14:03-0500 Body surface area Derived from formula 1.8 m2 Fiorella Bradley PA-C Work Phone: [employer]; [employer] 08-05-2022 14:03-0500 Body weight 72.58 kg Fiorella Bradley PA-C Work Phone: [employer]; [employer]. 08-05-2022 14:03-0500 Diastolic blood pressure 86 mm[Hg] Fiorella Bradley PA-C Work Phone: [employer]; [employer]. Comment on above: Patient Position: Sitting; Cuff Location : Left Arm; Cuff Size: Standard 08-05-2022 14:03-0500 Heart rate 71 /min Fiorella SHARMA-C Work Phone: [employer]; [employer]. Comment on above: Pattern: Regular 08-05-2022 14:03-0500 Systolic blood pressure 120 mm[Hg] Fiorella Bradley PA-C Work Phone: [employer]; [employer] Comment on above: Patient Position: Sitting; Cuff Location : Left Arm; Cuff Size: Standard Encounters Encounter Date Encounter Type Care Provider Facility Start: 03-08-2025 End: 03-08-2025 Telephone follow-up Fiorella Bradley PA-C Work Phone: [employer] Start: 03-07-2025 End: 03-07-2025 Emergency department patient visit Fiorella Bradley ZACHARY Work Phone: -Emergency Department Work Phone: Start: 02-28-2025 End: 02-28-2025 Telephone encounter Jennifer Walker [facility] Work Phone: [facility] Comment on above: In Processing Instructor - O ther (Genetics - additional records) Start: 02-27-2025 End: 02-27-2025 Medication Fiorella Bradley PA-C Work Phone: [employer] Start: 02-18-2025 End: 02-18-2025 Transcribe Orders Fiorella Bradley Work Phone: [facility] Comment on above: Muscle spasms of bot h lower extremities (Primary Dx) Start: 02-18-2025 End: 02-18-2025 Orders Fiorella Bradley PA-C Work Phone: [employer] Start: 02-13-2025 End: 02-13-2025 Historical Summary Fiorella Bradley PA-C Work Phone: [employer] Start: 02-12-2025 End: 02-12-2025 ambulatory NIKITA MARTÍNEZ [facility] Start: 02-12-2025 End: 02-12-2025 Orders Fiorella Bradley PA-C Work Phone: [employer] Start: 01-29-2025 End: 01-30-2025 Medication Fiorella Bradley PA-C Work Phone: [employer] Start: 01-25-2025 End: 01-25-2025 ambulatory [facility] Start: 01-25-2025 End: 01-25-2025 Orders Fiorella Bradley PA-C Work Phone: [facility] Start: 01-24-2025 End: 01-24-2025 ambulatory [facility] Start: 01-24-2025 End: 01-24-2025 Orders Fiorella Bradley PA-C Work Phone: [facility] [facility] Start: 01-11-2025 End: 01-11-2025 Office outpatient visit 15 minutes Fiorella Bradley PA-C Work Phone: [employer] Start: 10-19-2024 End: 10-19-2024 Orders Fiorella Bradley PA-C Work Phone: [facility] [facility] Start: 10-17-2024 End: 10-17-2024 Office outpatient visit 15 minutes Fiorella Bradley PA-C Work Phone: [facility] [facility] Start: 06-13-2024 End: 06-13-2024 ambulatory LEYDA ECHEVARRIAAN [facility] Start: 06-10-2024 End: 06-10-2024 ambulatory FIORELLA BRADLEY [facility] Start: 04-18-2024 End: 04-18-2024 [facility] Start: 03-13-2024 End: 03-13-2024 ambulatory LOGAN CABRERA [facility] Facility:[facility] Start: 03-13-2024 End: 03-13-2024 Subsequent hospital visit by physician Mri Radio [facility] Wstr (I-Stat/1.5t) Work Phone: Radiology Start: 03-09-2024 End: 03-09-2024 Telephone follow-up Fiorella Bradley PA-C Work Phone: [employer] Start: 03-07-2024 End: 03-07-2024 Emergency department patient visit ELADIO Peters GRETA [facility] Start: 02-24-2024 End: 02-24-2024 Orders Fiorella Bradley PA-C Work Phone: [employer] Start: 01-31-2024 Telephone encounter Vivian Hartman MD Work Phone: [facility] Comment on above: New Patient Start: 01-24-2024 End: 01-24-2024 Office outpatient visit 25 minutes Edd Negro MD Work Phone: [facility] Comment on above: Pelvic pain (Primary Dx); Left ovarian cyst Start: 01-24-2024 End: 01-24-2024 Orders Only Edd Negro MD Work Phone: [facility]URE Comment on above: Cysts of both ovarie s (Primary Dx) Cysts of both ovarie s Start: 01-02-2024 End: 01-02-2024 ambulatory Fiorella Bradley Facility:[facility] Start: 12-23-2023 End: 12-23-2023 Telephone follow-up Fiorella Bradley PA-C Work Phone: [employer] Start: 12-23-2023 End: 12-23-2023 Patient encounter procedure Fiorella Bradley PA-C Work Phone: [employer] Start: 12-14-2023 End: 12-14-2023 Office outpatient visit 25 minutes Fiorella Bradley PA-C Work Phone: [employer]. Start: 12-02-2023 End: 12-02-2023 Office outpatient visit 25 minutes Fiorella Bradley PA-C Work Phone: [employer] Start: 12-02-2023 Follow-up encounter Fiorella Sharma lmer PA-C Work Phone: [employer] Start: 12-02-2023 End: 12-02-2023 Telephone follow-up Fiorella Bradley PA-C Work Phone: [facility] [facility] Start: 12-01-2023 End: 12-01-2023 Emergency department patient visit [facility] Facility:[facility] Start: 12-01-2023 End: 12-01-2023 Emergency department patient visit [facility]-Emergency Department Work Phone: Start: 11-10-2023 End: 11-10-2023 Office outpatient visit 15 minutes Fiorella Bradley PA-C Work Phone: [employer] Start: 11-10-2023 Review Fiorella Bradley PA-C Work Phone: [employer] Start: 07-06-2023 End: 07-06-2023 Orders Fiorella Bradley PA-C Work Phone: [employer]. Start: 06-09-2023 End: 06-09-2023 Patient encounter procedure Fiorella Bradley PA-C Work Phone: [employer] Start: 01-18-2023 End: 01-18-2023 Postop follow up visit related to original px She SHARMA Work Phone: [facility] Comment on above: Dysmenorrhea (Primar y Dx); Abnormal uterine bleeding (AUB); Pelvic organ prolapse quantification stage 1 cystocele Start: 12-20-2022 End: 12-20-2022 Postop follow up visit related to original px She SHARMA Work Phone: [facility] Comment on above: Dysmenorrhea (Primar y Dx); Abnormal uterine bleeding (AUB); Pelvic organ prolapse quantification stage 1 cystocele Start: 12-03-2022 ambulatory Edd Negro MD Work Phone: [facility] Start: 12-02-2022 ambulatory RANJANA WU Facility:[facility] Start: 12-02-2022 End: 12-02-2022 Office outpatient visit 25 minutes Ranjana Wu MD Work Phone: Neurology [facility] Comment on above: Intracranial hyperte nsion (Primary Dx); Intractable migraine with aura without status migrainosus; Vertigo; Lumbosacral radiculopathy; Cervical radiculopathy Start: 11-29-2022 Telephone encounter Christine gunter METAL LOADER Work Phone: [facility] Anesthesia Comment on above: Consult Start: 11-24-2022 Telephone encounter Edd dunn MD Work Phone: [facility] Comment on above: Release of Informati on Start: 10-28-2022 End: 10-28-2022 Office outpatient new 60 minutes Edd Negro MD Work Phone: [facility] Comment on above: Dysmenorrhea (Primar y Dx) Start: 10-25-2022 End: 10-25-2022 Orders Fiorella Bradley PA-C Work Phone: [facility]. Start: 09-27-2022 Telephone encounter Edd dunn MD Work Phone: [facility] Comment on above: Referral Start: 09-07-2022 End: 09-07-2022 Orders Firoella VILLALBAC Work Phone: [employer] Start: 08-05-2022 End: 08-05-2022 Patient encounter procedure Fiorella Kirk SHARMA-C Work Phone: [facility] [facility] Start: 04-27-2019 End: 04-28-2019 Patient encounter procedure NONE NONE Facility:[facility] Start: 12-28-2017 End: 12-28-2017 Ambulatory SHELIA Fady [facility] Patient encounter procedure Fiorella Shrestha Kirk SHARMA-C Work Phone: [facility] [facility]; [employer] [facility] Procedures Date Procedure Procedure Detail Performing Clinician Start: 03-07-2025 Computed tomography of abdomen and pelvis with intravenous contrast Fiorella Kirk SHARMA Work Phone: Start: 03-07-2025 Estimated creatinine clearance Fiorella SHARMA Work Phone: Start: 03-07-2025 Urnls dip stick/tabl et reagent auto microscopy Fiorella Kirk SHARMA Work Phone: Start: 02-12-2025 Urinalysis NIKITA CANTU Comment on above: Result Comment: URIN ALYSIS Performed By: #### [id number] #### [place] [id number] Start: 02-12-2025 End: 02-12-2025 Most Recent Cardio Labs Fiorella Kirk P A-C Work Phone: Start: 02-12-2025 End: 02-12-2025 Most Recent Cardio Report Fiorella Kirk PA-C Work Phone: Start: 01-25-2025 Urinalysis NIKITA CANTU Comment on above: Result Comment: URIN ALYSIS Performed By: #### [id number] #### [place] [id number] Start: 03-13-2024 Mri spinal canal lum bar w/o contrast material [facility] Provider Start: 01-24-2024 Us transvaginal Edd A Cesta MD Work Phone: Start: 12-23-2023 End: 01-04-2024 Us pelvic nonobstetric real-time image complete Fiorella Shrestha Bradley PA-C Work Phone: Comment on above: Please call pt to delfina win Start: 12-14-2023 End: 01-24-2024 Screening digital breast tomosynthesis bi Fiorella Shrestha Bradley PA-C Work Phone: Start: 12-14-2023 End: 01-04-2024 Us lmtd joint/oth nonvasc xtr strux r-t w/img Fiorella Shrestha Bradley PA-C Work Phone: Start: 12-02-2023 End: 12-09-2023 Ct thorax w/contrast material Firoella Shrestha Bradley PA-C Work Phone: Start: 12-01-2023 SARS-CoV-2, Influenz a & RSV (PCR) Start: 12-01-2023 Plain chest X-ray Start: 12-01-2023 CT of abdomen and pe lvis without contrast Start: 06-09-2023 End: 06-09-2023 Depression screening Fiorella Shrestha Bradley PA -C Work Phone: Start: 06-09-2023 End: 06-09-2023 Scr dep neg, no plan reqd Fiorella Shrestha Roshni er PA-C Work Phone: Start: 06-09-2023 End: 07-04-2023 Xtrnl ecg & 48 hr record scan stor w/r&i Fiorella Shrestha Bradley PA-C Work Phone: Comment on above: Would like her to ott ve a 72 hour monitor. Start: 11-20-2022 End: 11-20-2022 Partial hysterectomy Fiorella Shrestha Bradley PA -C Work Phone: Comment on above: Still has ovaries; t hey repaired cystocele and pelvic floor prolapse; done through [facility] Start: 08-05-2022 End: 08-25-2022 Us pelvic nonobstetric real-time image complete Fiorella Bradley PA-C Work Phone: Start: 08-05-2022 End: 08-25-2022 Us soft tissue head & neck real time imge docm Fiorella Bradley PA-C Work Phone: Start: 08-22-2010 End: 08-22-2010 Ligation of fallopian tube Janene Rajani daigle ACRYLIC FABRICATOR Comment on above: maya Start: 08-22-2005 End: 08-22-2005 Appendectomy Janene Cabrera PN Comment on above: [facility] Start: 08-22-2004 End: 08-22-2004 Cholecystectomy Janene Schmider L PN Comment on above: [facility] section Janene Lucila wiggins ACRYLIC FABRICATOR Comment on above: 2010 Plan of Treatment Date Care Activity Detail Author Start: 2043 RSV Immunization age d 60 or older (1 - 1-dose 60+ series) RSV Immunization aged 60 or older (1 - 1-dose 60+ series) [facility] Start: 2033 Zoster Vaccines (1 of 2) Zoste r Vaccines (1 of 2) [facility] Start: 04-22-2025 Influenza vaccination [facility] Start: 03-07-2025 [facility] Start: 02-12-2025 Urnls dip stick/tabl et reagent auto microscopy URINALYSIS, W/ REFLEX TO CULTURE ([id number]) Start: 12-Feb-2025 15:46-04:00 Request [employer].; [employer] Start: 01-25-2025 Culture bacterial quanttative colony count urine URINE VANDANA CULTURE-REUBEN COL COUNT Start: 25-Jan-2025 14:58-04:00 Request [employer].; [employer]. Start: 01-25-2025 Urnls dip stick/tabl et reagent auto microscopy URINALYSIS, AUTOMATED W/ MICRO ([id number]) Start: 25-Jan-2025 14:58-04:00 Request [employer].; [employer]. Start: 01-24-2025 Assay of magnesium MAGNESIUM ( [id number]) Start: 24-Jan-2025 15:25-04:00 Request [facility] All; [facility] Start: 01-24-2025 Comprehensive metabo lic panel CMP w/ GFR* ([id number]) Start: 24-Jan-2025 15:25-04:00 Request [facility] All; [facility] [facility] Start: 10-19-2024 Culture bacterial quanttative colony count urine URINE VANDANA CULTURE-REUBEN COL COUNT Start: 19-Oct-2024 07:08-05:00 Request [facility]4 All; [facility] [facility] Start: 10-19-2024 Urnls dip stick/tabl et reagent auto microscopy URINALYSIS, AUTOMATED W/ MICRO ([id number]) Start: 19-Oct-2024 07:08-05:00 Request 1[facility]4 All; [facility] Start: 10-17-2024 Culture bacterial quanttative colony count urine Urine Culture ([id number]) Start: 17-Oct-2024 09:30-05:00 Request [facility] All; [employer]. Start: 04-22-2024 Covid-19 Vaccine ( season) Covid-19 Vaccine ( season) [facility] Start: 04-22-2024 Influenza vaccination S [facility] Start: 03-26-2024 End: 07-25-2024 US Pelvis transvaginal US pelvis transvaginal Imaging Routine Left ovarian cyst Expected: 03/26/2024 (Approximate), Expires: 07/25/2024 [facility] Comment on above: Expected: 03/26/2024 (Approximate), Expires: 07/25/2024 Start: 01-24-2024 End: 01-23-2025 CA 125 CA 125 Lab Routine Left ovarian cyst Expected: 01/24/2024 (Approximate), Expires: 01/23/2025 [facility] Work Phone: Comment on above: Expected: 01/24/2024 (Approximate), Expires: 01/23/2025 Start: 01-24-2024 End: 01-23-2025 Cancer Ag 19-9 [Units/volume] in Serum or Plasma Cancer antigen 19-9 Lab Routine Left ovarian cyst Expected: 01/24/2024 (Approximate), Ex[facility]: [facility]23[facility] Comment on above: Expected: 01/24/2024 (Approximate), Expires: 01/23/2025 Start: 01-24-2024 End: 01-23-2025 Carcinoembryonic Ag [Mass/volume] in Serum or Plasma CEA Lab Routine Left ovarian cyst Expected: 01/24/2024 (Approximate), Expires: 01/23/2025 [facility] Comment on above: Expected: 01/24/2024 (Approximate), Expires: 01/23/2025 Start: 01-24-2024 End: 01-23-2025 MR Pelvis WO and W contrast IV MR pelvis w and wo contrast Imaging Routine Pelvic pain Left ovarian cyst Expected: 01/24/2024, Expires: 01/23/2025 [employer] Comment on above: Expected: 01/24/2024 , Expires: 01/23/2025 Start: 12-23-2023 End: 12-23-2023 Us pelvic nonobstetric real-time image complete Pelvic Ultrasound ([id number]) Date: 23-Dec-2023 Comments: Please call pt to schedule [facility]; [facility] Comment on above: Please call pt to delfina win Start: 12-14-2023 Culture bacterial quanttative colony count urine Urine Culture ([id number]) Start: 14-Dec-2023 11:48-04:00 Request [facility]; [employer]. Start: 12-14-2023 End: 12-14-2023 Screening digital breast tomosynthesis bi Mammogram 3D (tomosynthesis), bilateral ([id number]) Date: 14-Dec-2023 [facility]; [employer]. Start: 12-14-2023 End: 12-14-2023 Us lmtd joint/oth nonvasc xtr strux r-t w/img LIMITED ULTRASOUND OF SOFT TISSUE OF LEFT LOWER EXTREMITY ([id number]) Date: 14-Dec-2023 [facility]; [employer], [employer]. Start: 12-08-2023 Patient encounter procedure Me dical; EXTENDED RTN - leg pain into side, swollen lymph node under arm [employer]. Start: 08-Dec-2023 07:40-04:00 CHENTE Bradley Appointment Request [employer]. Start: 12-02-2023 End: 12-05-2023 Ct thorax w/contrast material [employer]. Start: 12-02-2023 Antibody borrelia burgdorferi lyme disease Lyme Titer/EIA, reflex IgM and IgG ([id number]) Start: 02-Dec-2023 11:49-04:00 Request [employer].; [employer]. Start: 12-02-2023 Antinuclear antibodies kurt KURT TITER AND PATTERN ([id number]) Start: 02-Dec-2023 11:40-04:00 Request [employer].; [employer]. Start: 12-02-2023 Sedimentation rate r bc automated ESR (SED RATE) ([id number]) Start: 02-Dec-2023 11:37-04:00 Request [facility]; [employer]. Start: 12-02-2023 C-reactive protein C-REACTIVE PROTEIN ([id number]) Start: 02-Dec-2023 11:37-04:00 Request [facility] All; [employer]. Start: 12-02-2023 Blood count complete auto&auto difrntl wbc CBC, PLATELETS & AUT DIFF (F) ([id number]) Start: 02-Dec-2023 11:36-04:00 Request [facility] All; [employer]. Start: 12-02-2023 Patient encounter procedure Me dical; EXTENDED RTN - leg pain into side, swollen lymph node under arm ER [facility] 11/30 [employer]. Start: 02-Dec-2023 11:20-04:00 CHENTE Bradley Appointment Request [employer]. Start: 12-01-2023 [facility] Start: 2023 Screening for malign ant neoplasm of breast [facility] Start: 04-22-2023 COVID-19 Vaccine ( season) COVID-19 Vaccine ( season) [facility] Start: 04-22-2023 Influenza vaccination Influenz a Vaccine (Season Ended) [facility] Start: 01-18-2023 End: 01-18-2023 Patient encounter procedure 01/18/2023 Office Visit Obstetrics and Gynecology She Colon PA [address] [place], [place] [id number] [facility] Start: 12-20-2022 End: 12-20-2022 Patient encounter procedure 12/20/2022 Office Visit Obstetrics and Gynecology She Colon PA [address] [place], [place] [id number] [facility] Start: 12-06-2022 End: 12-06-2022 Admission to same day surgery center 12/06/2022 Surgery Procedural Edd Negro MD [address] [place], [place] [id number] total laparoscopic hysterectomy,bilateral salpingectomy,cystosco py, possible right oophorectomy, frozen dilation and curettage, uterosacral ligament suspension [51259 (CPT )] [facility] Comment on above: total laparoscopic h ysterectomy,bilateral salpingectomy,cystoscopy, possible right oophorectomy, frozen dilation and curettage, uterosacral ligament suspension [63737 (CPT )] Start: 12-06-2022 End: 12-06-2022 Anesthesia consultation 12/06/2022 Anesthesia Event Procedural Christine Clay, BENJY [address] [place] [address] [facility] MAIN OR Start: 12-06-2022 End: 12-06-2022 Cystourethroscopy CYSTOSCOPY Adenomyosis of the uterus Dysmenorrhea, unspecified Abnormal uterine and vaginal bleeding, unspecified Cystocele, unspecified (CODE) Pelvic and perineal pain 12/06/2022 1:00 PM EDT [facility] Operating Room Start: 12-06-2022 End: 12-06-2022 Laparoscopy colpopexy suspension vaginal apex LAPAROSCOPIC COLPOPEXY Adenomyosis of the uterus Dysmenorrhea, unspecified Abnormal uterine and vaginal bleeding, unspecified Cystocele, unspecified (CODE) Pelvic and perineal pain 12/06/2022 1:00 PM EDT [facility] Operating Room Start: 12-06-2022 End: 12-06-2022 Laps total hysterect 250 gm/< w/rmvl tube/ovary LAPAROSCOPY WITH TOTAL HYSTERECTOMY FOR UTERUS 250 G OR LESS WITH REMOVAL OF TUBE(S) AND OR OVARY(S) Adenomyosis of the uterus Dysmenorrhea, unspecified Abnormal uterine and vaginal bleeding, unspecified Cystocele, unspecified (CODE) Pelvic and perineal pain 12/06/2022 1:00 PM EDT [facility] Operating Room Start: 12-06-2022 End: 12-06-2022 Path consltj surg ea addl blk frozen section PATHOLOGY CONSULTATION DURING SURGERY EACH ADDITIONAL TISSUE BLOCK WITH FROZEN SECTION(S) SINGLE SPECIMEN Adenomyosis of the uterus Dysmenorrhea, unspecified Abnormal uterine and vaginal bleeding, unspecified Cystocele, unspecified (CODE) Pelvic and perineal pain 12/06/2022 1:00 PM EDT [facility] Operating Room Start: 12-06-2022 Subsequent hospital visit by physician 12/06/2022 Hospital Encounter Procedural Edd Negro MD [address] [place] [address] [id number] [facility] MAIN OR Start: 11-29-2022 End: 11-29-2022 Admission to establishment 11/29/2022 Pre-Admission Testing Pre-Admission Testing Edd Negro MD [address] [place] [id number] [facility] Pre-Admit Testing Start: 10-28-2022 End: 10-28-2022 Patient encounter procedure 10/28/2022 Office Visit Obstetrics and Gynecology Edd Negro MD [address] [place] [id number] [facility] Start: 10-25-2022 Comprehensive metabo lic panel [facility] Start: 04-22-2022 Influenza vaccination Influenza Vacc ine (#1) [facility] Start: 2013 Screening for malign ant neoplasm of cervix [facility] Start: 04-22-2009 Screening for malign ant neoplasm of cervix Cervical Cancer Screening [facility] Start: 2004 Screening for malign ant neoplasm of cervix [facility] Start: 2002 DTaP/Tdap/Td Vaccine s (1 - Tdap) DTaP/Tdap/Td Vaccines (1 - Tdap) [facility] Start: 2002 Hepatitis B Vaccine (1 of 3 - 19+ 3-dose series) Hepatitis B Vaccine (1 of 3 - 19+ 3-dose series) [facility] Start: 2002 Hepatitis B Vaccines (1 of 3 - 19+ 3-dose series) Hepatitis B Vaccines (1 of 3 - 19+ 3-dose series) [facility] Start: 2002 Third diphtheria, te tanus and acellular pertussis (DTaP) vaccination TDAP (ADULT) [facility] Start: 2002 Urine microalbumin profile DTa P,Tdap,Td Vaccine (1 - Tdap) [facility] Start: 2001 Anxiety Screening Anxiety Screening [facility] Start: 2001 Depression Screening Depression Scre [facility] Start: 2001 Diabetes mellitus screening Diabetes Screening [facility] Start: 2001 Hepatitis C screening Hepatitis C Sc reening [facility] Start: 2001 HIV screening HIV Screening [facility] Start: 1998 HIV screening HIV SCREENING DISCUSSION [facility] Start: 1996 Varicella vaccination Varicell a Vaccines (1 of 2 - 13+ 2-dose series) [facility] Start: 1995 Depression Screening Depression Scre ening [facility] Start: 1989 Pneumococcal vaccination Pneum ococcal Vaccine (1 of 2 - PCV) [facility] Start: 1989 PNEUMOCOCCAL VACCINE SERIES (1 - PCV) PNEUMOCOCCAL VACCINE SERIES (1 - PCV) [facility] Start: 1989 Pneumococcal Vaccine : Pediatrics (0 to 5 Years) and At-Risk Patients (6 to 64 Years) (1 - PCV) Pneumococcal Vaccine: Pediatrics (0 to 5 Years) and At-Risk Patients (6 to 64 Years) (1 - PCV) [facility] Start: 1989 Pneumococcal Vaccine : Pediatrics (0 to 5 Years) and At-Risk Patients (6 to 64 Years) (1 of 2 - PCV) Pneumococcal Vaccine: Pediatrics (0 to 5 Years) and At-Risk Patients (6 to 64 Years) (1 of 2 - PCV) [facility] Start: 1984 MMR Vaccines (1 of 1 - Standard series) MMR Vaccines (1 of 1 - Standard series) [facility] Start: 1984 Varicella vaccination Varicell a Vaccines (1 of 2 - 2-dose childhood series) [facility] Start: 03-09-1984 COVID-19 Vaccine (#1) COVID-19 Vacci ne (#1) [facility] Start: 1983 Hepatitis B Vaccines (1 of 3 - 3-dose series) Hepatitis B Vaccines (1 of 3 - 3-dose series) [facility] Start: 1983 Hepatitis C screening HEPATITI S C VIRUS SCREENING [facility] Start: 1983 HIV screening HIV Screening [facility] Start: 1983 Lipid panel Lipid Panel [facility] Start: 1983 Tetanus vaccination TETANUS [facility] Patient Education [facility] Work Phone: Patient referral [facility] Work Phone: Payers Date Payer Category Payer Self-pay 2012 [facility] PPO OOS [id number] 2012 Unknown [id number] 1983 Unknown [id number] 1983 Unknown [id number] 1983 Unknown [id number] 1983 Unknown [id number] 1983 Unknown [id number] 1983 Unknown [id number] 1983 Unknown [id number] 1983 Unknown [id number] 1959 Unknown [id number] Unknown [id number] Unknown [id number] Social History Date Type Detail Facility Start: 12-15-2001 End: 10-28-2022 Tobacco smoking status LAIS Smokes tobacco daily [facility] Start: 08-22-2000 End: 01-03-2019 History of tobacco use Cigarette Smoker [facility] Start: 10-28-2022 Tobacco use and exposure User of smokeless tobacco [facility] Start: 10-28-2022 End: 01-24-2024 Alcohol intake Current drinker of alcohol (finding) [facility] Start: 1985 Sex Assigned At Not on file S [facility] Start: 10-18-2022 End: 01-18-2023 Exposure to SARS-CoV-2 (event) Not sure [facility] Start: 12-02-2022 End: 03-07-2025 Tobacco smoking status NHIS Ex-smoker [facility] Start: 08-22-2000 End: 01-03-2019 History of tobacco use Current smoker [facility] Start: 07-28-2020 End: 12-02-2022 Cigarettes smoked current (pack per day) - Reported 1 [facility] Start: 12-15-2017 End: 12-02-2022 Tobacco use and exposure Smokeless tobacco non-user [facility] Start: 12-02-2022 Alcohol intake Ex-drinker (finding) [facility] Start: 11-29-2022 Alcohol Comment rare,couple times a year [facility] Start: 1985 Female [facility] Start: 12-01-2023 Tobacco smokin g consumption unknown [facility] Start: 11-28-2015 None [facility] Start: 05-08-2015 Spouse/ Signif icant Other [facility] Start: 11-16-2016 - [facility] Start: 07-28-2020 End: 01-24-[address] [facility] Start: 12-16-2019 Alcohol intake Not Asked [facility] Adult Depression Screening Assessment 2 [facility] Start: 10-03-2008 Tobacco Comment restarted smoking [facility] Mental Status Date Assessment Result Facility 12-01-2023 Cognitive function Level Of Cons ciousness Awake;Alert;Appropriate;Follow s Commands [facility] Work Phone: Clinical Notes 09-27-2022 to 03-07-2025 Telephone Encounter - Lorna Lam - 02/28/2025 2:15 PM EDTTelephone Encounter - Lorna Lam - 02/28/2025 2:15 PM Rayna Godwin RT(R) - 03/13/2024 11:20 AM EDT Note Date & Type Note Facility 03-07-2025 Radiology Diagnostic study note [facility] Imaging Services [address] [place] [address] Abdomen/Pelvis W IV Cont ONLY MR#: [id number] Acct: [id number] Name: JENNIFER DEL VALLE Rep #: [id number] : 1985 F 39 From: Chinyere Roy MD PCP: ZACHARY Rhodes Status: REG ER Study:Abdomen/Pelvis W IV Cont ONLY Date of E xam: 03/07/25 Exam# [id number] Ordering Dr: Brant Ogden DO PROCEDURE: ABDOMEN/PELVIS W IV CONT ONLY 03/07/2025 REASON FOR EXAM: ABDOMINAL PAIN TECHNIQUE: ABDOMEN/PELVIS W IV CONT ONLY Coronal and Sagittal reconstruction series were provided. CONTRAST: Isovue 370 VOLUME: 98 mL One or more dose reduction techniques were used (e.g., Automated exposure control, adjustment of the mA and/or kV according to patient size, use of iterative reconstruction technique. RADIATION DOSE SUMMARY: CTDlvol: 18.4 mGy DLP: 946 mGycm COMPARISON: CT abdomen and pelvis 12/01/2023 FINDINGS: Lung bases: Unremarkable Liver: Mild intrahepatic biliary ductal dilatation, unchanged. Gallbladder: Surgically absent. Spleen: Unremarkable Pancreas: Normal size without evidence of mass surrounding inflammation or ductal dilation. Adrenals: Unremarkable Kidneys: No radiodense stone or hydronephrosis. Bladder: Unremarkable Reproductive Organs: Prior hysterectomy. Adnexal regions are unremarkable. Bowel: No obstruction or inflammation. Appendix is surgically absent. Sigmoid colon diverticulosis without evidence of acute diverticulitis. Lymph nodes: No suspicious lymph node enlargement. Vasculature: The abdominal aorta and IVC are normal. Bones: Bone island in the right iliac wing, unchanged Soft tissues: Unremarkable. CT/Abdomen/Pelvis W IV Cont ONLY IMPRESSION: No acute intra-abdominal abnormality. Reading Location: [id number] CC: Dr. Brant Ogden DO; ZACHARY Rhodes ~ Power Press Tender: Signed [facility] 02-28-2025 Telephone encounter Note Attempted to reach out to PT to obtain neuro records Left vague VM on unidentified VM box. Stated I would follow up with a [facility] and left [facility] line for call back. [facility] [employer] [facility] 02-28-2025 Miscellaneous Notes Attempted to reach out to PT to obtain neuro records Left vague VM on unidentified VM box. Stated I would follow up with a [facility] and left [facility] line for call back. [facility] [employer] documented in this encounter [facility] 03-13-2024 History of Presen t illness Narrative Radiology Service Progress Note DATE OF SERVICE: March 13, 2024 TIME: 11:27 AM PATIENT IDENTITY VERIFICATION COMPLETED USING TWO (2) STANDARD IDENTIFIERS: Name and Date of confirmed by patient verbally. FALL SCREENING: Has the patient had 2 falls in the last year or 1 fall with injury or currently using an Ambulatory Assistive Device (Walker, Cane, Wheelchair, Crutches, etc.)? Yes, Patient High Risk for Falls What interventions were put in place to prevent falls during this visit? Instructed Patient to Call for Help if Needed, Offered Assistance with Transfers/Clothing, Instructed Patient to Remain Seated (Not on Exam Table) Until Exam, and Increased Observations by Caregivers PATIENT GENDER DATA: Female. status: : No status: NO. PATIENT RELEVANT IMPLANT DATA REVIEWED: Yes PATIENT PRESENTS WITH AN IMPLANTABLE OR ATTACHED PASTING INSPECTOR: No ALLERGIES: Reviewed and unchanged CONTRAST ALLERGY: NO. EXAM: MRI - CONTRAST TYPE: GROUP II PERIPHERAL IV DATA: Ambulatory: A peripheral IV was started in the Left antecubital site with a Angio cath: 22 gauge. RADIOLOGY DEPARTMENT: MR; Exam(s) Completed: Body: Female Pelvis Spine: Lumbar spine SIGNATURE: RT Eris(Kevan) PATIENT NAME: Jennifer Del Valle DATE: March 13, 2024 TIME: 11:27 AM documented in this encounter [facility] 03-13-2024 Note HNO ID: [id number] Author: RAYNA FRIEDMAN RT(R) Service: ? Author Type: Technologist Type: Progress Notes Filed: 03/13/2024 11:28 Note Text: Radiology Service Progress Note DATE OF SERVICE: March 13, 2024 TIME: 11:27 AM PATIENT IDENTITY VERIFICATION COMPLETED USING TWO (2) STANDARD IDENTIFIERS: Name and Date of confirmed by patient verbally. FALL SCREENING: Has the patient had 2 falls in the last year or 1 fall with injury or currently using an Ambulatory Assistive Device (Walker, Cane, Wheelchair, Crutches, etc.)? Yes, Patient High Risk for Falls What interventions were put in place to prevent falls during this visit? Instructed Patient to Call for Help if Needed, Offered Assistance with Transfers/Clothing, Instructed Patient to Remain Seated (Not on Exam Table) Until Exam, and Increased Observations by Caregivers PATIENT GENDER DATA: Female. status: : No status: NO. PATIENT RELEVANT IMPLANT DATA REVIEWED: Yes PATIENT PRESENTS WITH AN IMPLANTABLE OR ATTACHED PASTING INSPECTOR: No ALLERGIES: Reviewed and unchanged CONTRAST ALLERGY: NO. EXAM: MRI - CONTRAST TYPE: GROUP II PERIPHERAL IV DATA: Ambulatory: A peripheral IV was started in the Left antecubital site with a Angio cath: 22 gauge. RADIOLOGY DEPARTMENT: MR; Exam(s) Completed: Body: Female Pelvis Spine: Lumbar spine SIGNATURE: RT Eris(R) PATIENT NAME: Jennifer Del Valle DATE: March 13, 2024 TIME: 11:27 AM [facility] 02-01-2024 Telephone encounter Note Left voice message for pt to call to new pt appt. [facility] 02-01-2024 Miscellaneous Notes Left voice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 documented in this encounterSCleveland Clinic South Pointe [id number] Telephone encounter Note* Telephone Encounter - Christine Clay NP - 12/02/2022 2:25 PM EDT Patient went for her neurology appointment today for clearance. As per Dr. Wu's note: Plan: 1. No neurological contraindication to have a surgery. 2. RTC PRN. [facility] [id number] History of Present illness Narrative* Ranjana Wu MD - 12/02/2022 12:30 PM EDT Chief Complaints headache and vertigo HPI Jennifer Del Valle is a 37 y.o. 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 who presents to the office for follow up for headache and vertigo. Her last visit was in 2019. She is hear for surgery clearance for hysterectomy. Her headache and neck pain have been almost resolved since last visit. She also has a occasional balance problem with vertigo. No vision change is reported. Diamox was stopped. Seldomly, she has a small amount potential CSF leakage from ears. The patient denies any new symptoms. No seizure and stroke were reported since last visit. There is no double vision, blurry vision, facial weakness, vertigo, difficulty speech, difficulty swallow, muscle weakness and sensory symptoms. 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 Surgical History: has a past surgical history that includes section; lap cholecystectomy; appendectomy; tubal ligation; lymphadenectomy; tonsillectomy; wisdom teeth extraction; and leg surgery. Family History: family history includes Cancer- Other in her maternal grandfather and paternal uncle; Hypertension in her maternal aunt, maternal uncle, maternal uncle, and mother; Lipid Disorder in her mother; Neurologic Disease in her maternal aunt, mother, and sister; Other - Specify in her father, mother, and sister; Other - Specify (age of onset: 50) in her maternal grandmother; Vision Problems in her mother and sister. Social History: reports that she quit smoking about 3 years ago. Her smoking use included cigarettes. She started smoking about 22 years ago. She has a 18.00 pack-year smoking history. She has never used smokeless tobacco. She reports that she does not currently use alcohol. She reports that she does not use drugs. Medications: has a current medication list which includes the following prescription(s): caffeine, rfmbwqqapb-fekgqeeqbgdii-atcdhfoi, and levetiracetam. Allergies: is allergic to amitriptyline. Vitals: There were no vitals taken for this visit. Physical Examination: Mental status exam: Patient is alert and oriented x 3. She follows 2 steps commands. There is no aphasia and apraxia. Cranial Nerves: pupils are equal and round, extra occular movements intact with no nystagmus, symmetric sensation on the face, symmetric facial strength, symmetric elevation of the soft palate, shoulder shrug is symmetric, tongue is in midline with full motions. Motor: move both sides without weakness. No pronator drift. Sensation: not tested. Coordination: Finger to nose and rapid alternative movement are normal for both sides. There is no dysmetria. Gait: Normal base and arm swing. Lab: Results for orders placed or performed in visit on 08/29/19 COMPREHENSIVE METABOLIC PANEL Result Value Ref Range Sodium 140 133 - 143 mmol/L Potassium 4.5 3.5 - 5.0 mmol/L Chloride 111 (H) 98 - 108 mmol/L BUN 19 7 - 22 mg/dL Creatinine 0.89 0.50 - 1.20 mg/dL Glucose 84 70 - 99 mg/dL Bilirubin Total 0.4 <1.5 mg/dL Albumin 4.3 3.5 - 5.0 g/dL Total Protein 6.6 6.4 - 8.3 g/dL AST 11 (L) 14 - 40 U/L ALP 29 (L) 32 - 126 U/L Calcium 8.4 (L) 8.6 - 10.5 mg/dL Bun/Crea Ratio 21 CO2 21 (L) 22 - 30 mmol/L ALT 12 9 - 48 U/L Anion Gap 13 7 - 17 mmol/L EST GFR,Non >=60 >=60 mL/min/1.73sqM EST GFR, >=60 >=60 mL/min/1.73sqM Osmolality (Calculated) 295 278 - 305 mOsm/kg SYPHILIS AB W/REFLEX RPR Result Value Ref Range Syphilis IgG/IGM Total Non Reactive Non Reactive TSH Result Value Ref Range TSH 2.215 0.550 - 4.780 uIU/mL VITAMIN B12 Result Value Ref Range Vitamin B12 359 211 - 911 pg/mL FOLATE, SERUM Result Value Ref Range Folate 8.75 >5.38 ng/mL LYME AB Result Value Ref Range Lyme Antibody Negative Negative ANGIOTENSIN CONVERTING ENZYME Result Value Ref Range Angiotensin Converting Enzyme 38 9 - 67 U/L SPE SERUM TOTAL PROTEIN Result Value Ref Range Total Protein 6.8 6.4 - 8.3 g/dL PROTEIN ELECTROPHORESIS Result Value Ref Range Albumin 4.3 3.5 - 5.0 g/dL Alpha 1 0.3 0.2 - 0.4 g/dL Alpha 2 0.7 0.5 - 1.0 g/dL Beta 0.7 0.5 - 1.1 g/dL Gamma 0.9 0.6 - 1.5 g/dL Spe Interpretation Normal serum protein electrophoresis pattern. Interpretation By: Ava Albrecht MD IMMUNOGLOBULINS IGG IGA IGM Result Value Ref Range IGG 964 600-1,714 mg/dL IgA 113 66 - 433 mg/dL IGM 60 45 - 281 mg/dL IMMUNOFIXATION SERUM Result Value Ref Range Serum Immunofixation No monoclonal protein present. REVIEWED BY: Ava Albrecht MD Assessment: 1. Headache. Tension type or intracranial hypertension. Last LP showed opening pressure 17. 2. Neck pain. 3. H/O migraine. 4. Vertigo. 5. Chronic lower back pain. 6. Left arm and leg weakness. Plan: 1. No neurological contraindication to have a surgery. 2. RTC PRN. documented in this encounterOS[facility] Telephone encounter Note* Telephone Encounter - Christine Clay NP - 11/29/2022 1:11 PM EDT Patient pending neurology appointment for clearance with Dr. Wu at [facility] on 12-02-22. [facility] [id number] Telephone encounter Note* Telephone Encounter - Gaviota Hansen - 11/25/2022 11:44 AM EDT Spoke with patient. Will call Dr's office to have recent pap faxed over. Also, has appointment schedule with Neurology 12/02. [facility] [id number] Miscellaneous Notes* Telephone Encounter - Gaviota Hansen - 11/25/2022 11:44 AM EDT Spoke with patient. Will call 's office to have recent pap faxed over. Also, has appointment schedule with Neurology 12/02. * Telephone Encounter - Gaviota Hansen - 11/24/2022 12:47 PM EDT Called patient. Left VM to return call. Also, sent mychart message. * Telephone Encounter - Edd Negro MD - 11/24/2022 8:19 AM EDT Patient's hysterectomy is scheduled on 11/20. I still need her most recent Pap smear. Can you please call her and get release of records. Also need neurology clearance from her. Can you please see ifshe obtain this? documented in this encounterSCleveland Clinic South [facility]inte [id number] Telephone encounter Note* Telephone Encounter - Gaviota Hansen - 11/24/2022 12:47 PM EDT Called patient. Left VM to return call. Also, sent Funnelyhart message. [facility] [id number] Telephone encounter Note* Telephone Encounter - Edd Negro MD - 11/24/2022 8:19 AM EDT Patient's hysterectomy is scheduled on 11/20. I still need her most recent Pap smear. Can you please call her and get release of records. Also need neurology clearance from her. Can you please see ifshe obtain this? [facility] [id number] Evaluation + Plan note* Assessment & Plan Note - Edd Negro MD - 10/28/2022 2:15 PM ESTAssociated Problem(s): Cervical cancer screening Reports normal Pap smear, will send EMILY today to get most recent Pap from her primary COMMUNICATIONS ASSOCIATE [facility] [id number] Evaluation + Plan note* Assessment & Plan Note - Edd Negro MD - 10/28/2022 2:15 PM ESTAssociated Problem(s): CSF leak She will need neurology clearance. She no longer reports having ICH. Reviewed Trendelenburg position and postoperative care. We will get recommendations from neurology for surgery. [facility] [id number] Miscellaneous Notes* Assessment & Plan Note - Edd Negro MD - 10/28/2022 2:15 PM ESTAssociated Problem(s): Cervical cancer screening Reports normal Pap smear, will send EMILY today to get most recent Pap from her primary COMMUNICATIONS ASSOCIATE * Assessment & Plan Note - Edd Ngero MD - 10/28/2022 2:15 PM ESTAssociated Problem(s): CSF leak She will need neurology clearance. She no longer reports having ICH. Reviewed Trendelenburg position and postoperative care. We will get recommendations from neurology for surgery. * Assessment & Plan Note - Edd Negro MD - 10/28/2022 2:14 PM ESTAssociated Problem(s): Abnormal uterine bleeding (AUB) - Reviewed low risk for EIN. Discussed with her pain would like to move forward with hysterectomy in a timely manner. Given [place] discussed endometrial sampling and can proceed with frozen dilation and curettage at the time of surgery. I suspect that we will be able to get the uterus delivered through the vagina and that we would not have to morcellated I did review this with her. She does consent to contain morcellation if needed. reviewed rare risk of LMS. * Assessment & Plan Note - Edd Negro MD - 10/28/2022 2:13 PM ESTAssociated Problem(s): Dysmenorrhea Likely due to adenomyosis Reviewed her pain could have been exacerbated by right-sided ovulation. Discussed postoperatively if we did remove right ovary she would still ovulate from the left, however without the uterus she may tolerate oral medications better because she would not have side effects of uterine bleeding * Assessment & Plan Note - Edd Negro MD - 10/28/2022 2:00 PM ESTAssociated Problem(s): Pelvic organ prolapse quantification stage 1 cystocele - discussed early prolapse on exam, patient with questionable history Abimbola danlos. Reviewed that this would be treatment and prophylactic for anterior and apical compartments. Discussed failure rate recurrence rate. Discussed that she does not currently have stress incontinence and reviewed occult incontinence. Discussed that this will not fix rectocele. Patient would like to proceed with uterosacral ligament suspension at the time of surgery * Assessment & Plan Note - Edd Negro MD - 10/28/2022 1:55 PM ESTAssociated Problem(s): Adenomyosis Today we specifically discussed different routes of hysterectomy and r/b/a to hysterectomy and major surgery. Reviewed hysterectomy indications and reviewed the steps of the procedure. We discussed expectations for no menstrual cycles in the future but cannot guarantee pain will improve. Explained removal of the cervix and future cervical cancer screening recommendations. Also discussed chance ofundetected cancer or precancer at the time of surgery. We also discussed vaginal cuff cellulitis and vaginal cuff dehiscence following hysterectomy. The patient was allowed to freely ask questions, expressed a good understanding of all of the above risks, understood and declined alternatives to surgical management and wishes to proceed with the procedure. AAGL surgical handout provided. We discussed the risks of surgery including, but not limited to: [x] Bleeding, infection, visceral or major vascular injury, transfusion, additional surgery relatedto the complication [x] Serious injury necessitating ostomy creation creation for bowel or urinary tract [x] Possibility of delayed surgical injury (such as in cases of bowel or bladder), prolonged catheterization or fistula formation [x] Anesthetic complication, cardiovascular risks including VTE, neurologic compromise/neuropathy [x] Unexpected findings which may require different or additional procedures [x] Failure of the procedure to achieve the desired result [x] For endoscopic procedures, the possibility of conversion to open surgery, need for re-operationor rehospitalization [x] The remote possibility of [x] Pain control and risks of narcotic medications [x] Recovery period and post-op expectations All questions asked and answered. Patient is able to correctly repeat the pertinent facts and she indicates understanding of these issues and agrees with the plan. Plan: total laparoscopic hysteroscopy, bilateral salpingectomy, cystoscopy, possible right oophorectomy, uterosacral ligament suspension documented in this [facility]03-09-2023 Evaluation + Plan note* Assessment & Plan Note - Edd Negro MD - 10/28/2022 2:14 PM ESTAssociated Problem(s): Abnormal uterine bleeding (AUB) - Reviewed low risk for EIN. Discussed with her pain would like to move forward with hysterectomy in a timely manner. Given that she lives 1.5 hours away discussed endometrial sampling and can proceed with frozen dilation and curettage at the time of surgery. I suspect that we will be able to get the uterus delivered through the vagina and that we would not have to morcellated I did review this with her. She does consent to contain morcellation if needed. reviewed rare risk of LMS. [facility] [id number] Evaluation + Plan note* Assessment & Plan Note - Edd Negro MD - 10/28/2022 2:13 PM ESTAssociated Problem(s): Dysmenorrhea Likely due to adenomyosis Reviewed her pain could have been exacerbated by right-sided ovulation. Discussed postoperatively if we did remove right ovary she would still ovulate from the left, however without the uterus she may tolerate oral medications better because she would not have side effects of uterine bleeding [facility] [id number] Evaluation + Plan note* Assessment & Plan Note - Edd Negro MD - 10/28/2022 2:00 PM ESTAssociated Problem(s): Pelvic organ prolapse quantification stage 1 cystocele - discussed early prolapse on exam, patient with questionable history Abimbola danlos. Reviewed that this would be treatment and prophylactic for anterior and apical compartments. Discussed failure rate recurrence rate. Discussed that she does not currently have stress incontinence and reviewed occult incontinence. Discussed that this will not fix rectocele. Patient would like to proceed with uterosacral ligament suspension at the time of surgery [facility] [id number] Evaluation + Plan note* Assessment & Plan Note - Edd Negro MD - 10/28/2022 1:55 PM ESTAssociated Problem(s): Adenomyosis Today we specifically discussed different routes of hysterectomy and r/b/a to hysterectomy and major surgery. Reviewed hysterectomy indications and reviewed the steps of the procedure. We discussed expectations for no menstrual cycles in the future but cannot guarantee pain will improve. Explained removal of the cervix and future cervical cancer screening recommendations. Also discussed chance ofundetected cancer or precancer at the time of surgery. We also discussed vaginal cuff cellulitis and vaginal cuff dehiscence following hysterectomy. The patient was allowed to freely ask questions, expressed a good understanding of all of the above risks, understood and declined alternatives to surgical management and wishes to proceed with the procedure. AAGL surgical handout provided. We discussed the risks of surgery including, but not limited to: [x] Bleeding, infection, visceral or major vascular injury, transfusion, additional surgery relatedto the complication [x] Serious injury necessitating ostomy creation creation for bowel or urinary tract [x] Possibility of delayed surgical injury (such as in cases of bowel or bladder), prolonged catheterization or fistula formation [x] Anesthetic complication, cardiovascular risks including VTE, neurologic compromise/neuropathy [x] Unexpected findings which may require different or additional procedures [x] Failure of the procedure to achieve the desired result [x] For endoscopic procedures, the possibility of conversion to open surgery, need for re-operationor rehospitalization [x] The remote possibility of [x] Pain control and risks of narcotic medications [x] Recovery period and post-op expectations All questions asked and answered. Patient is able to correctly repeat the pertinent facts and she indicates understanding of these issues and agrees with the plan. Plan: total laparoscopic hysteroscopy, bilateral salpingectomy, cystoscopy, possible right oophorectomy, uterosacral ligament suspension [facility] [id number] History of Present illness Narrative* Edd Negro MD - 10/28/2022 1:00 PM EST Images from the original note were not included. Jennifer Del Valle 10/28/2024 37 y.o. Chief Complaint Patient presents with New Patient Pelvic pain Patient's last menstrual period was 10/12/2022. HPI: Jennifer Del Valle is a 37 y.o. female presents for evaluation of chronic pelvic pain. Has worsening RLQ pain in the last 6 months. Reports it previous was intermittent throughout the days. Now it's constant within the last week. She had to call off Tuesday and Tuesday from works. Pain is worse with menstrual cycles. Was on the couch for 3 days in August. Menses are shorter in between 20-21 days. Lasting 5days. Stops in the middle for a day and then bleeds again. Reports lastpap smear with Dr. Orozco 1 month ago. No abnormals Has always had pain with intercourse. No pain with BM. In 2006 was diagnosed with IBS, no formal testing she reports. The week before her menses she had no BM and had constipation, the week after herperiod she had more BM Currently having increased urinary frequency. Voiding 20x/day. No history of endometriosis + fam history. She has current CSF leak. First one was with her second child in 2010. Took almost 4 years to get diagnosed. Has had 5 blood patches in the past. Last was in 2018. Follows with Dr. Cook pain management. Reports that she saw 27 different doctors to diagnose this. After her last patch in 2018 she has high CSF Intracranial hypertension and was seen by a neurologist at [facility]. She was having stroke like symptoms and she had an LP in 10/2019. After LP she reports that she had CSF leak that is currently ongoing. Her current treatment regimen is just caffeine and this keeps her pretty stable. She reports constant nausea, OTT, pain in back of neck/head. Has not seen seen neurologist at [facility] since 2019. Hgb 12.6 TVUS: OB History Para Term AB Living 2 2 2 2 SAB IAB Ectopic Multiple Live Births 2 # Outcome Date GA Lbr Jaya/2nd Weight Sex Delivery Anes PTL Lv 2 CS-LTranv URI Complications: Preeclampsia 1 CS-LTranv URI Complications: Abruptio Placenta, Heart Rate or Rhythm Abnormality History reviewed. No pertinent past medical history. Past Surgical History: Procedure Laterality Date APPENDECTOMY laparoscopic SECTION (HISTORICAL) GALLBLADDER SURGERY laparoscopic LYMPH NODE DISSECTION Left Left leg TUBAL LIGATION Family History Problem Relation Name Age of Onset COPD Mother Retinitis pigmentosa Mother Cervical cancer Mother Glaucoma Mother Social History Tobacco Use Smoking status: Every Day Types: Cigarettes Smokeless tobacco: Current Substance Use Topics Alcohol use: Yes Drug use: Never MEDICATIONS: Current Outpatient Medications Medication Sig Dispense Refill ketorolac (Toradol) 10 MG tablet Take 1 tablet by mouth every 8 hours as needed. No current facility-administered medications for this visit. ALLERGIES: Allergies as of 10/28/2022 - Reviewed 10/28/2022 Allergen Reaction Noted Amitriptyline Other and Palpitations 05/11/2016 Gabapentin Other 10/28/2022 Oxycodone-acetaminophen 10/28/2022 Review of Systems: Review of Systems Constitutional: Negative for fever. Gastrointestinal: Positive for abdominal pain, constipation, diarrhea and nausea. Negative for vomiting. Genitourinary: Positive for dysuria and frequency. Negative for hematuria. Musculoskeletal: Positive for arthralgias and myalgias. Neurological: Positive for headaches. Physical Exam: BP 126/76 (BP Location: Left arm, Patient Position: Sitting, BP Cuff Size: Adult) Temp 36.2 C (97.2 F) (Temporal) Ht 5' 3 (1.6 m) Wt 163 lb 14.4 oz (74.3 kg) LMP 10/12/2022 BMI 29.03 kg/m Physical Exam Constitutional: Appearance: Normal appearance. HENT: Head: Normocephalic and atraumatic. Pulmonary: Effort: Pulmonary effort is normal. Abdominal: Comments: Prior surgical incisions noted and well-healed. Pfannenstiel x2 low and well-healed Genitourinary: General: Normal vulva. Comments: There is nontender levator, obturator and coccygeus on the left side. There is nontender right obturator and levator. Mild tender coccygeus on the right. Normal uterosacral ligaments no nodularity, posterior cul-de-sac is free. Uterus palpates adherent to Pfannenstiel incision and more soon the right part of the incision. I do not palpate a scar mass at any point along the length of the scar. There are no adnexal masses there is mild right adnexal tenderness there is no fullness in the right adnexa Neurological: Mental Status: She is alert and oriented to person, place, and time. Psychiatric: Behavior: Behavior normal. ASSESSMENT& PLAN: Adenomyosis Today we specifically discussed different routes of hysterectomy and r/b/a to hysterectomy and major surgery. Reviewed hysterectomy indications and reviewed the steps of the procedure. We discussed expectations for no menstrual cycles in the future but cannot guarantee pain will improve. Explained removal of the cervix and future cervical cancer screening recommendations. Also discussed chance ofundetected cancer or precancer at the time of surgery. We also discussed vaginal cuff cellulitis and vaginal cuff dehiscence following hysterectomy. The patient was allowed to freely ask questions, expressed a good understanding of all of the above risks, understood and declined alternatives to surgical management and wishes to proceed with the procedure. AAGL surgical handout provided. We discussed the risks of surgery including, but not limited to: [x] Bleeding, infection, visceral or major vascular injury, transfusion, additional surgery relatedto the complication [x] Serious injury necessitating ostomy creation creation for bowel or urinary tract [x] Possibility of delayed surgical injury (such as in cases of bowel or bladder), prolonged catheterization or fistula formation [x] Anesthetic complication, cardiovascular risks including VTE, neurologic compromise/neuropathy [x] Unexpected findings which may require different or additional procedures [x] Failure of the procedure to achieve the desired result [x] For endoscopic procedures, the possibility of conversion to open surgery, need for re-operationor rehospitalization [x] The remote possibility of [x] Pain control and risks of narcotic medications [x] Recovery period and post-op expectations All questions asked and answered. Patient is able to correctly repeat the pertinent facts and she indicates understanding of these issues and agrees with the plan. Plan: total laparoscopic hysteroscopy, bilateral salpingectomy, cystoscopy, possible right oophorectomy, uterosacral ligament suspension Pelvic organ prolapse quantification stage 1 cystocele - discussed early prolapse on exam, patient with questionable history Abimbola danlos. Reviewed that this would be treatment and prophylactic for anterior and apical compartments. Discussed failure rate recurrence rate. Discussed that she does not currently have stress incontinence and reviewed occult incontinence. Discussed that this will not fix rectocele. Patient would like to proceed with uterosacral ligament suspension at the time of surgery Dysmenorrhea Likely due to adenomyosis Reviewed her pain could have been exacerbated by right-sided ovulation. Discussed postoperatively if we did remove right ovary she would still ovulate from the left, however without the uterus she may tolerate oral medications better because she would not have side effects of uterine bleeding Abnormal uterine bleeding (AUB) - Reviewed low risk for EIN. Discussed with her pain would like to move forward with hysterectomy in a timely manner. Given that she lives 1.5 hours away discussed endometrial sampling and can proceed with frozen dilation and curettage at the time of surgery. I suspect that we will be able to get the uterus delivered through the vagina and that we would not have to morcellated I did review this with her. She does consent to contain morcellation if needed. reviewed rare risk of LMS. CSF leak She will need neurology clearance. She no longer reports having ICH. Reviewed Trendelenburg position and postoperative care. We will get recommendations from neurology for surgery. 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 I spent total time today of 60 minutes counseling, coordinating care and provided discussion regarding multiple complex diagnosis, treatment plan and follow up. documented in this [facility]02-06-2023 Telephone encounter Note* Telephone Encounter - Gaviota Aaron Hansen - 09/27/2022 12:25 PM EST Called patient. Could not leave VM. No VM to return call to schedule referral with Dr. Cast/Dr. Negro [facility] [id number] Miscellaneous Notes* Telephone Encounter - Gaviota Aaron Hansen - 09/27/2022 12:25 PM EST Called patient. Could not leave VM. No VM to return call to schedule referral with Dr. Cast/Dr. Negro [facility]* Diagnosis Intracranial hypertension- Primary Benign intracranial hypertension Intractable migraine with aura without status migrainosus Migraine with aura, with intractable migraine, so stated, without mention of status migrainosus Vertigo Dizziness and giddiness Lumbosacral radiculopathy Thoracic or lumbosacral neuritis or radiculitis, unspecified Cervical radiculopathy Brachial neuritis or radiculitis nos documented [facility]* Diagnosis Dysmenorrhea- Primary Abnormal uterine bleeding (AUB) Pelvic organ prolapse quantification stage 1 cystocele documented in this encounter [facility] note* Diagnosis Dysmenorrhea- Primary Abnormal uterine bleeding (AUB) Pelvic organ prolapse quantification stage 1 cystocele documented in this encounter [facility] noteNo assessment information availableWBluffton Hospital Work Phone: Evaluation note* Diagnosis Cysts of both ovaries- Primary Other and unspecified ovarian cyst Cysts of both ovaries Other and unspecified ovarian cyst [facility] this [facility]* Diagnosis Pelvic pain- Primary Left ovarian cyst Other and unspecified ovarian cyst [facility]* Diagnosis Cysts of both ovaries Other and unspecified ovarian cyst [facility]* Diagnosis Dysmenorrhea- Primary [facility]* Diagnosis Muscle spasms of both lower extremities- Primary documented in this encounter [facility] for referral (narrative)No reason for referral information availableWBluffton Hospital Work Phone: Summary Purpose Family History Relationship Condition Age at Onset Recorded Date/T filomena Unknown Family History?- Unknown April 222014 6:29pm Family History?No pe rtinent history Unknown May 08, 2015 6:29pm Family History?No pe rtinent history Unknown November 16, 2016 7:34pm Family History?No pe rtinent history, - Unknown May 08, 2015 6:34pm Family History?No pe rtinent history, - Unknown November 16, 2016 7:34pm Additional Family Hi story?No history of headaches. Unknown May 08, 2015 6:34pm Additional Family Hi story?No history of headaches. Unknown November 16, 2016 7:34pm Advance Directives Latest Code Status on File Code Status Date Activated Date Inactivated Comments Full Code 12/06/2022 10:58 AM 12/07/2022 2:44 PM Advance Directive Response Recorded Date/ Time Advance Directives No November 26 8:12pm Living Will No December 01, 2023 7:58am Power of Lace Sewer No November 30 7:58am Latest Code Status on File Code Status Date Activated Date Inactivated Comments Full Code 12/06/2022 10:58 AM 12/07/2022 2:44 PM Advance Directive Response Recorded Date/ Time Do you have a Healthcare Power of Lace Sewer? No March 07, 2025 1:54pm Advance Directives No November 26 8:12pm Chief Complaint and Reason for Visit Chief Complaint FEVER Chief Complaint Admit Date Symptoms March 07, 2025 12:5 4pm Reason for Referral Specialty Diagnoses / Procedures Referred By Dale johansen Referred To Contact Radiology Diagnoses Pelvic pain Left ovarian cyst Procedures MR pelvis w and wo contrast MR pelvis w and wo contrast Edd Negro MD [address] [place] [address] [place] [id number] Referral ID Status Reason Start Date Expiration Date V isits Requested Visits Authorized [id number] Pending Review 01/24/2024 01/23/2025 1 1 Specialty Diagnoses / Procedures Referred By Dale johansen Referred To Contact Rheumatology Diagnoses Pelvic pain Procedures IN OFFICE/OUTPATIENT NEW HIGH MDM 60 MINUTES Edd Negro MD [address] [facility] [address] [place] [address] [facility] [address] [place] [address] Referral ID Status Reason Start Date Expiration Date Visits Requested Visits Authorized [id number] Pending Review Specialty Services Required 01/24/2024 01/23/2025 1 1 Additional Source Comments INFORMATION SOURCE (unrecogn ized section and content) DATE CREATED AUTHOR 02/09/2018 [facility] DATE CREATED AUTHOR AUTHOR'S ORGANIZ ATION 05/03/2019 [facility] DATE CREATED AUTHOR AUTHOR'S ORGANIZ ATION 11/15/2019 [facility] DATE CREATED AUTHOR AUTHOR'S ORGANIZ ATION 12/22/2020 [facility] ([place] DATE CREATED AUTHOR AUTHOR'S ORGANIZ ATION 12/05/2022 [facility] DATE CREATED AUTHOR AUTHOR'S ORGANIZ ATION 01/14/2024 [facility] DATE CREATED AUTHOR AUTHOR'S ORGANIZ ATION 02/02/2024 [facility] DATE CREATED AUTHOR AUTHOR'S ORGANIZ ATION 05/02/2024 [facility] DATE CREATED AUTHOR AUTHOR'S ORGANIZ ATION 10/21/2024 [facility] DATE CREATED AUTHOR AUTHOR'S ORGANIZ ATION 02/16/2025 [facility] DATE CREATED AUTHOR AUTHOR'S ORGANIZ ATION 03/04/2025 [facility] Reason for Visit (unrecogniz ed section and content) Reason Onset Date Comments Release of Information 11/24/2022 Reason Comments Follow-up Reason Onset Date Comments Consult 11/29/2022 Reason Comments Post-op Visit Reason Comments Post-op Visit 6 wks; ovarian pain while ovulating Reason Comments Follow-up Reason Onset Date Comments New Patient 01/31/2024 Specialty Diagnoses / Procedures Referred By Contac t Referred To Contact Radiology / RADIO MRI [facility] MOB Diagnoses Pelvic and perineal pain mri pelvis w wo contrast pelvic pain r10.2 order in hand Edd Negro [facility] Board [id number] active order in bland d Procedures MRI PELVIS W/O & W/CONTRAST MATERIAL MRI WWO PEL SOFT 300 MRI WO LUMBAR Edd Negro MD [address] [place] [address] Radio Mri [facility] [address] [place] [address] Referral ID Status Reason Start Date Expiration Date Visits Re quested Visits Authorized [id number] Closed 02/27/2024 08/21/2024 1 1 Reason Onset Date Comments Referral 09/27/2022 Reason Comments New Patient Pelvic pain Specialty Diagnoses / Procedures Referred By Contac t Referred To Contact Obstetrics and Gynecology Diagnoses Pelvic and perineal pain Procedures GENERAL CLASSIFICATION Caitlyn Orozco, DO [address] [place] [phone] Edd Negro MD [address] [place] [address] Referral ID Status Reason Start Date Expiration Date V isits Requested Visits Authorized [id number] Pending Review 09/27/2022 09/27/2023 1 1 Reason Comments In Processing Instructor - Other Genetics - josue tional records Care Teams (unrecognized sec tion and content) Screen Printing Machine Operator Relationship Specialty Start Date End Date Fiorella Bradley PA-C [address] [place] [address] PCP - General Physician Plate Glass Installer 09/27/22 Screen Printing Machine Operator Relationship Specialty Start Date End Date Hubert Rai, TIFFANY [address] [place] [phone] PCP - General Family Medicine 06/21/19 Screen Printing Machine Operator Relationship Specialty Start Date End Date Fiorella Bradley PA-C [address] [place], [place] [address] PCP - General Physician Plate Glass Installer 09/27/22 Screen Printing Machine Operator Relationship Specialty Start Date End Date Fiorella Bradley PA-C [address] [place] [address] [place] [address] PCP - General Physician Plate Glass Installer 09/27/22 Screen Printing Machine Operator Relationship Specialty Start Date End Date Fiorella Bradley PA-C [address] [place] [address] [place] [address] PCP - General Physician Plate Glass Installer 09/27/22 Screen Printing Machine Operator Relationship Specialty Start Date End Date Fiorella Bradley PA-C [address] [place] [address] [place] [address] PCP - General Physician Plate Glass Installer 09/27/22 Team Status: Active Member Role Status Dates Dr. Logan Carballo MD Family Provider Active ZACHARY Sears Primary Care Provider Active Team Status: Inactive Member Role Status Dates Dr. Swapnil Teixeira MD Emergency Provider Active ZACHARY Sears Primary Care Provider Active Screen Printing Machine Operator Relationship Specialty Start Date End Date Fiorella Bradley PA-C [address] [place] [address] [place] [address] PCP - General Physician Plate Glass Installer 09/27/22 Screen Printing Machine Operator Relationship Specialty Start Date End Date Fiorella Bradley PA-C [address] [place] [address] [place] [address] PCP - General Physician Plate Glass Installer 09/27/22 Screen Printing Machine Operator Relationship Specialty Start Date End Date Fiorella Bradley PA-C [address] [place] [address] Dr [place] [id number] PCP - General Physician Plate Glass Installer 09/27/22 Screen Printing Machine Operator Relationship Specialty Start Date End Date Fiorella Bradley PA-C [address] [facility] [place] [address] PCP - General Physician Plate Glass Installer 09/27/22 Screen Printing Machine Operator Relationship Specialty Start Date End Date [facility] [address] [place] [address] PCP - General Family Medicine 09/16/17 Hubert Rai, GLASS SAGGER.SLASH TRIMMER [address] [place] [address] Referring Internal Medicine 04/19/19 Candelaria Benjamin MD [address] [place] [phone] Primary Staff Physician Cardiology 11/07/18 Screen Printing Machine Operator Relationship Specialty Start Date End Date Fiorella Bradley PA-C [address] [facility] [place] [address] PCP - General Physician Plate Glass Installer 09/27/22 Screen Printing Machine Operator Relationship Specialty Start Date End Date Fiorella Bradley PA-C [address] [facility] [place] [address] PCP - General Physician Plate Glass Installer 09/27/22 Screen Printing Machine Operator Relationship Specialty Start Date End Date [facility] [address] [place], [place] [id number] PCP - General Family Medicine 09/16/17 Hubert Rai, GLASS SAGGER.SLASH TRIMMER [address] [place] [phone] Referring Internal Medicine 04/19/19 Candelaria Benjamin MD [address] [place] [address] Primary Staff Physician Cardiology 11/07/18 Fiorella Bradley [address] [facility] [place] [address] Family Medicine 02/05/25 Screen Printing Machine Operator Relationship Specialty Start Date End Date Logan Carballo III [address] [place], [place] [id number] PCP - General Family Medicine 09/16/17 Hubert Rai, MINE[facility] [address] [place] [phone] Referring Internal Medicine 04/19/19 Candelaria Benjamin MD [address] [place] [address] Primary Staff Physician Cardiology 11/07/18 Fiorella Bradely [address] [facility] [place] [address] Family Medicine 02/05/25 Team Status: Active Member Role/Relationship Status Dates ZACHARY Sears Primary Care Provider Active Team Status: Inactive Member Role/Relationship Status Dates ZACHARY Sears Primary Care Provider Active Start: March 07, 2025 End: March 07, 2025 Dr. Brant Ogden , Referring Provider Active Start: March 07, 2025 End: March 07, 2025 Dr. Brant Ogden , DO Emergency Provider Active Start: March 07, 2025 End: March 07, 2025 Goals (unrecognized section and content) Goals may be documented in a n alternate sectionGoals may be documented in an alternate section Source Comments (unrecognize d section and content) In the event this informatio n is protected by the Federal Confidentiality of Alcohol and Drug Abuse Patient Records regulations: The Federal rules restrict any use of the information to criminally investigate or prosecute any alcohol or drug abuse patient.[facility] the event this information is protected by the Federal Confidentiality of Alcohol and Drug Abuse Patient Records regulations: The Federal rules restrict any use of the information to criminally investigate or prosecute any alcohol or drug abuse patient.[facility] the event this information is protected by the Federal Confidentiality of Alcohol and Drug Abuse Patient Records regulations: The Federal rules restrict any use of the information to criminally investigate or prosecute any alcohol or drug abuse patient.[facility] FOR RECORDS PERTAINING TO PATIENTS WHO ARE OR HAVE BEEN ENROLLED IN A CHEMICAL DEPENDENCY/SUBSTANCEABUSE PROGRAM, SOME INFORMATION MAY BE OMITTED. This clinical summary was aggregated from multiple sources. Caution should be exercised in using it in the provision of clinical care. This summary normalizes information from multiple sources, and as a consequence, information in this document may materially change the coding, format and clinical context of patient data. In addition, data may be omitted in some cases. CLINICAL DECISIONS SHOULD BE BASED ON THE PRIMARY CLINICAL RECORDS. [facility]. provides no warranty or guarantee of the accuracy or completeness of information in this document.
[2025-03-10 21:47] LABS: Red Blood Cells-Urine 0-5 SEEN /hpf (0-5); Squamous Epithelial Cells - UA 0-5 SEEN /hpf (5-10)
[2025-03-10 22:06] VITALS: BP 121/70; PULSE 72; RESP 16; TEMP 37; O2SAT 99
== END 2025-03-10 22:06 | disposition home or self-care (01) ==
PROVIDERS: Emergency Provider Emergency Medicine; PCP Physician Assistant; Visit Provider Emergency Medicine
DX: R10.9 Unspecified abdominal pain (principal); R11.2 Nausea with vomiting, unspecified; Z87.891 Personal history of nicotine dependence; M54.9 Dorsalgia, unspecified
CPT/HCPCS: 74177; 80053; 81001; 83690; 85025; 96361; 96374; 96375; 99283; Q9967; A4216; J2405

== ENCOUNTER → 2025-03-22 | Outpatient (CLI) | payer BC, SELFPAY ==
[2025-03-22 11:21] LABS: Hematocrit 42.7 % (37-47); Hemoglobin 14.5 g/dL (12.0-15.0); Immature Granulocytes Count 0.010 X10^3/uL (0.0-0.0); Mean Corp Hgb Conc 34.0 g/dL (32-36); Mean Corpuscular Volume 91.6 fL (81-99); Mean Platelet Vol. 9.4 fl (6.2-12.0); NRBC Flagged by Analyzer 0 % (0-5); Platelet Count 262 K/mm3 (150-450); RBC Distribution Width CV 13.8 % (11.6-14.6); RBC Distribution Width SD 46.6 fl (35.1-43.9); Red Blood Count 4.66 M/mm3 (4.2-5.4); White Blood Count 6.1 K/mm3 (4.4-11.0)
[2025-03-22 12:24] LABS: AST(SGOT) 19 U/L (<=31); Alanine Aminotransfer ALT/SGPT 34 U/L (<=34); Albumin, Serum 4.7 g/dL (3.5-5.0); Alkaline Phosphatase 44 U/L (35-104); Anion Gap 13 (5-15); BUN 14 mg/dL (4-19); BUN/Creat Ratio 15.6 RATIO (10-20); Calcium,Total 9.7 mg/dL (7.6-11.0); Carbon Dioxide 22.5 mmol/L (21.0-32.0); Chloride 103 mmol/L (98-108); Globulin 2.9 g/dL (2.2-4.2); Glucose 94 mg/dL (70-99); Potassium 4.3 mmol/L (3.3-5.1)
[2025-03-22 12:25] LABS: CRP < 3.00 mg/L (0.0-3.0)
[2025-03-27 12:08] LABS: ANTINUCLEAR ANTIBODIES DIRECT Positive (Negative); Anti-Chromatin <0.2 AI (0.0-0.9); Anti-Jo <0.2 AI (0.0-0.9); Anti-dsDNA Ab 1 IU/mL (0-9); Egg, Whole <0.10 kU/L (Class 0); Mussels <0.10 kU/L (Class 0); SJOGREN'S Anti-SS-A test < 0.2 AI (0.0-0.9); SJOGREN'S Anti-SS-B test < 0.2 AI (0.0-0.9)
[2025-04-10 16:08] LABS: ACCA 12 units (0-90); ALCA 36 units (0-60); AMCA 26 units (0-100); QNTFERON TB Mitogen Value > 10.00 IU/mL (.); QNTFERON TB Nil Value 0.03 IU/mL (.); QNTFERON TB1+ Ag Value 0.04 IU/mL (.); QNTFERON TB2+ Ag Value 0.12 IU/mL (.); QNTIFERON TB Positive Criteria Negative (Negative)
== END | disposition home or self-care (01) ==
LOC: LAB 10:49
PROVIDERS: PCP Physician Assistant
DX: R10.9 Unspecified abdominal pain (principal); R11.0 Nausea
CPT/HCPCS: 36415; 80053; 83516; 85025; 86003; 86005; 86036; 86038; 86140; 86225; 86235; 86480; 86671

== ENCOUNTER → 2025-03-26 | Outpatient (CLI) | payer BC, SELFPAY ==
[2025-03-27 14:08] LABS: Pancreatic Elastase, Fecal > 800 (>200)
[2025-03-28 15:08] LABS: Calprotectin, Stool 5 ug/g (0-120)
== END | disposition home or self-care (01) ==
LOC: LAB 09:56
PROVIDERS: PCP Physician Assistant
DX: K52.9 Noninfective gastroenteritis and colitis, unspecified (principal); R11.0 Nausea; R10.9 Unspecified abdominal pain
CPT/HCPCS: 82274; 82653; 83993

== ENCOUNTER 2025-04-23 13:48 | Day surgery (SDC) | payer BC, SELFPAY ==
--- NOTE | 2025-04-18 18:06 | PAT.ANESEVAL ---
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 When Was Last Pacemaker Check QUESTION #4 FULL TEXT: You/Your Family Experience fever (hyperthermia) with Anesthesia Last Oral Intake Last Oral intake: Last Oral Intake NPO since Meds taken in AM with sips of water? Meds patient instructed to take am of surgery PONV PONV - jewelry casting model maker apprentice: PONV - jewelry casting model maker apprentice Female Yes 04/18/25 14:27 HX of Motion Sickness Yes 04/18/25 14:27 HX of N/V After Surgery No 04/18/25 14:27 Non-Smoker Yes 04/18/25 14:27 Duration of Surgery greater No 04/18/25 14:27 than 60 minutes Number of Risk Factors 3 04/18/25 14:27 PONV Score Moderate Risk 04/18/25 14:27 Height & Weight Height & Weight: Anesthesia: Height & Weight Height 5 ft 3 in 03/10/25 20:02 Respiratory Assessment Respiratory Assessment - jewelry casting model maker apprentice: Respiratory Tract Infection Hx - jewelry casting model maker apprentice Hx Respiratory Tract Infection No 04/18/25 14:27 STOP Sleep Apnea STOP Sleep Apnea - jewelry casting model maker apprentice: STOP Sleep Apnea - jewelry casting model maker apprentice Hx Hypertension No 04/18/25 14:27 Hx Sleep Apnea No 04/18/25 14:27 CPAP No 10/28/16 16:19 BIPAP No 10/28/16 01:31 Do you snore loudly (louder No 04/18/25 14:27 than talking or can be heard Do you often feel tired/ Yes 04/18/25 14:27 fatigued/ sleepy during daytime? Has anyone observed you stop No 04/18/25 14:27 breathing during sleep? STOP Results Negative 04/18/25 14:27 QUESTION #5 FULL TEXT : Do you snore loudly (louder than talking or can be heard through closed doors)? 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 casting model maker apprentice: Tobacco Use History - jewelry casting model maker apprentice Tobacco Use Smoking Status Former smoker 04/18/25 14:27 Hx Tobacco Use Yes 04/18/25 14:27 Years Smoking Packs Smoked per Day Smoking Cessation Date was Yes - quit smoking within 15 04/18/25 14:27 within the last 15 years years Hx Smoking Cessation Date 02/25/25 04/18/25 14:27 Hx Smoking Cessation Counseling Hematologic Medial History Hematologic Hx - jewelry casting model maker apprentice: Hematologic Medical Hx - rn clinical documentation Hx of Blood Transfusion No 04/18/25 14:27 Hx of Transfusion in last 3 No 04/18/25 14:27 Months Date of Last Transfusion (if within last 3 months) Ever experience any problems No 04/18/25 14:27 with transfusion(s)? Specify any problems Hx of Preganancy in last 3 No 04/18/25 14:27 Months Nurse Filling Out Transfusion DSCHRIBER 04/18/25 14:27 & Questions: Date: 04/18/25 04/18/25 14:27 Time: 14:29 04/18/25 14:27 Patient unable to answer at this time (ie. confused, unrespo /Reproduction History /Reproductive History - jewelry casting model maker apprentice: /Reproductive Hx- jewelry casting model maker apprentice Hx Now No 04/18/25 14:27 Gestational Age (in weeks): EDC: Hx Hx Para Hx Section SAB No 04/18/25 14:27 PFSH Medical History (Updated 04/18/25 @ 14:42 by Christina Gtz) Wears glasses Depression Anxiety History of steroid therapy Arthritis Fatty liver Easy bruising Lumbar herniated disc DDD (degenerative disc disease), cervical Back pain Migraine headache Diverticulosis History of GI bleed Shortness of breath on exertion Former smoker Bradycardia Blackout Cardiology follow-up encounter Pain Myalgia Hirsutism Uterine fibroid Tinea pedis Pancolitis Idiopathic intracranial hypertension Home Medications ?Medication ?Instructions ?Recorded ?Last Taken ?Type dicyclomine 10 mg capsule 20 mg (2 x 10 mg) PO Q6H PRN PRN 12/01/23 Unknown Rx abdominal pain #20 CAPSULES promethazine 25 mg tablet 25 mg PO Q6H PRN PRN Nausea #10 03/07/25 Unknown Rx TABLETS ondansetron 4 mg disintegrating 4 mg PO Q6H PRN nausea and 03/10/25 Unknown Rx tablet vomiting #10 tabs rifaximin 550 mg tablet 550 mg PO TID #42 tabs 03/22/25 04/18/25 Rx caffeine 100 mg tablet 100 mg PO DAILY 04/18/25 Unknown History fexofenadine 180 mg tablet 180 mg PO DAILY 04/18/25 Unknown History (Crystal Allergy) hydroxyzine HCl 25 mg tablet 25 mg PO QHS anxiety 04/18/25 Unknown History midodrine 5 mg tablet 5 mg PO TID 04/18/25 Unknown History Held on 04/18/25. Instructions: MD Ordered Allergy/AdvReac Type Severity Reaction Status Date / Time amitriptyline Allergy tachycardia, Verified 04/18/25 14:22 chest tightness gabapentin AdvReac edema Verified 04/18/25 14:22 Surgical History (Updated 04/18/25 @ 14:42 by Christina Gtz) History of esophagogastroduodenoscopy (EGD) History of incision and drainage Hx of lymph node biopsy Hx of tubal ligation History of hysterectomy Hx of section Hx of cholecystectomy Hx of appendectomy Social History Smoking Status: Former smoker Audit: Pertinent Findings Pertinent Findings EKG Perinent findings: March 11, 2025. Normal sinus rhythm. Compared to EKG of September 22, 2023, nonspecific T wave abnormality now evident in inferior leads. Nonspecific T wave abnormality worse in anterior leads. Stress test pertinent findings: September 22, 2023. EF of 55% at rest increased to 65 to 70% with stress. Stress EKG is negative for inducible ischemia. Stress echocardiogram is negative for inducible ischemia. Echo (EF%) pertinent findings: 09/22/2023. EF of 50 to 55%. No concern for ischemia. No aortic stenosis. RVSP is 25 mmHg. Consult pertinent findings: April 09, 2025. Dr. Murrieta. 1. Dysautonomia-start midodrine 5 mg twice daily. Continue with extra fluids and electrolytes. 2. Tobacco-discussed with the patient in the past. 3. Vasovagal syncope?start midodrine. Get tilt table test (see below). Additional pertinent findings: Holter monitor. 06/24/2023. Baseline rhythm is sinus rhythm. Symptomatic episodes with sinus rhythm with PVCs and sinus tachycardia. Tilt table test. March 26, 2025. Patient demonstrates autonomic failure with orthostatic hypotension with drop in overall heart rate and blood pressure. Recommendation Anesthesia Recommendation Anesthesia recommendation: OPTIMIZED for anesthesia
[2025-04-23] VITALS (9 sets, daily range): BP systolic 98–119; BP diastolic 59–104; PULSE 61–77; RESP 14–16; TEMP 36.1–36.6; O2SAT 97–100; BMI 30.2
[2025-04-23] MEDS: Lactated Ringers 1,000 ML 15 ML IV (14:20)
--- NOTE | 2025-04-23 14:35 | PCM.PRE.AN2 ---
ASA Classification* ASA Classification ASA Classification: 3 Assessment & Plan Anesthesia* Anesthesia Assessment Anesthesia Assessment: Discussed sedation and/or anesthesia options, risks, benefits, and alternatives with patient/parents/legal guardian/POA. Questions invited. The patient/parents/legal guardian/POA seems to understand and agrees to proceed with anesthesia plan. Reviewed the physical assessment, medical history, allergy history and patient home medications list prior to surgery/procedure/anesthetic and documented any changes. Performed airway and anesthesia risk assessments. Anesthesia Type Anesthesia Type: MAC History Source History Obtained from:: Patient and Chart Anesthesia Focused Assessment* Temperature: 98 F Pulse Rate: 77 Blood Pressure: 115/75 Respiratory Rate: 16 Pulse Ox: 100 Oxygen Delivery Method: Room Air Airway Assessment Mouth opens: >3 cm Mallampati Score: I Teeth Condition: Intact Neck Range of motion (ROM): Full ROM Labs Anesthesia Preop lab: CBC WBC 6.1 K/mm3 (4.4-11.0) 03/22/25 10:54 03/22/25 RBC 4.66 M/mm3 (4.2-5.4) 03/22/25 10:54 03/22/25 Hgb 14.5 g/dL (12.0-15.0) 03/22/25 10:54 03/22/25 Hct 42.7 % (37-47) 03/22/25 10:54 03/22/25 Plt Count 262 K/mm3 (150-450) 03/22/25 10:54 03/22/25 CHEMISTRY Potassium 4.3 mmol/L (3.3-5.1) 03/22/25 10:54 03/22/25 Sodium 138 mmol/L (133-145) 03/22/25 10:54 03/22/25 Magnesium 2.2 mg/dL (1.8-2.4) 11/28/15 04:00 11/28/15 BUN 14 mg/dL (4-19) 03/22/25 10:54 03/22/25 Creatinine 0.88 mg/dL (0.70-1.20) 03/22/25 10:54 03/22/25 Glucose 94 mg/dL (70-99) 03/22/25 10:54 03/22/25 POC Glucose 92 mg/dL (70-110) 11/27/15 22:17 11/27/15 TSH 1.06 uIU/mL (0.358-3.74) 11/21/15 12:42 11/21/15 COAG Pre-Assessment Diagnosis/Proposed Procedure Planned Operative Procedure(s): CSCOPE Anesthesia History Anesthesia History - supervisor accounts receivable: Anesthesia History - supervisor accounts receivable Hx Hospitalization Yes: 02/2025 E COLI/COLITIS 04/18/25 14:27 Any Problems With Anesthesia No 04/18/25 14:27 Cholinesterase deficiency No 04/18/25 14:27 You/Your Family Experience No 04/18/25 14:27 fever (hyperthermia) with Relationship Recent Exposure to Contagious No 04/23/25 14:09 Disease Does patient have nerve No 04/18/25 14:27 stimulator Patient instructed to have device shut off --Does patient have Pacemaker No 04/23/25 14:09 or ICD? When Was Last Pacemaker Check QUESTION #4 FULL TEXT: You/Your Family Experience fever (hyperthermia) with Anesthesia Last Oral Intake Last Oral intake: Last Oral Intake NPO since 10:00 04/23/25 14:09 Meds taken in AM with sips of water? Meds patient instructed to take am of surgery Any additional information?: Yes NPO since: 10:00 (Patient finished her prep at 10 AM.) Meds taken in AM with sips of water?: No PONV PONV - supervisor accounts receivable: PONV - supervisor accounts receivable Female Yes 04/18/25 14:27 HX of Motion Sickness Yes 04/18/25 14:27 HX of N/V After Surgery No 04/18/25 14:27 Non-Smoker Yes 04/18/25 14:27 Duration of Surgery greater No 04/18/25 14:27 than 60 minutes Number of Risk Factors 3 04/18/25 14:27 PONV Score Moderate Risk 04/18/25 14:27 Height & Weight Height & Weight: Anesthesia: Height & Weight Height 5 ft 3 in 04/23/25 14:09 Weight: 77.564 kg 04/23/25 14:09 Body Mass Index (BMI) 30.2 04/23/25 14:09 Respiratory Assessment Respiratory Assessment - supervisor accounts receivable: Respiratory Tract Infection Hx - supervisor accounts receivable Hx Respiratory Tract Infection No 04/18/25 14:27 STOP Sleep Apnea STOP Sleep Apnea - supervisor accounts receivable: STOP Sleep Apnea - supervisor accounts receivable Hx Hypertension No 04/18/25 14:27 Hx Sleep Apnea No 04/18/25 14:27 CPAP No 10/28/16 16:19 BIPAP No 10/28/16 01:31 Do you snore loudly (louder No 04/18/25 14:27 than talking or can be heard Do you often feel tired/ Yes 04/18/25 14:27 fatigued/ sleepy during daytime? Has anyone observed you stop No 04/18/25 14:27 breathing during sleep? STOP Results Negative 04/18/25 14:27 QUESTION #5 FULL TEXT : Do you snore loudly (louder than talking or can be heard through closed doors)? Tobacco Use History Tobacco Use History - supervisor accounts receivable: Tobacco Use History - supervisor accounts receivable Tobacco Use Smoking Status Former smoker 04/18/25 14:27 Hx Tobacco Use Yes 04/18/25 14:27 Years Smoking Packs Smoked per Day Smoking Cessation Date was Yes - quit smoking within 15 04/18/25 14:27 within the last 15 years years Hx Smoking Cessation Date 02/25/25 04/18/25 14:27 Hx Smoking Cessation Counseling Hematologic Medial History Hematologic Hx - supervisor accounts receivable: Hematologic Medical Hx - technical customer support specialist Hx of Blood Transfusion No 04/18/25 14:27 Hx of Transfusion in last 3 No 04/18/25 14:27 Months Date of Last Transfusion (if within last 3 months) Ever experience any problems No 04/18/25 14:27 with transfusion(s)? Specify any problems Hx of Preganancy in last 3 No 04/18/25 14:27 Months Nurse Filling Out Transfusion DSCHRIBER 04/18/25 14:27 & Questions: Date: 04/18/25 04/18/25 14:27 Time: 14:29 04/18/25 14:27 Patient unable to answer at this time (ie. confused, unrespo /Reproduction History /Reproductive History - supervisor accounts receivable: /Reproductive Hx- supervisor accounts receivable Hx Now No 04/18/25 14:27 Gestational Age (in weeks): EDC: Hx Hx Para Hx Section SAB No 04/18/25 14:27 Active Medications Active Medications: Current Medications Generic Name Dose Route Start Last Admin Trade Name Freq PRN Reason Stop Dose Admin Lactated Ringer's 1,000 mls @ 15 mls/hr 04/23/25 14:00 04/23/25 14:20 IV 15 mls/hr .Q48H SHANTEL Administration PFSH Medical History Wears glasses Depression Anxiety History of steroid therapy Arthritis Fatty liver Easy bruising Lumbar herniated disc DDD (degenerative disc disease), cervical Back pain Migraine headache Diverticulosis History of GI bleed Shortness of breath on exertion Former smoker Bradycardia Blackout Cardiology follow-up encounter Pain Myalgia Hirsutism Uterine fibroid Tinea pedis Pancolitis Idiopathic intracranial hypertension Home Medications ?Medication ?Instructions ?Recorded ?Last Taken ?Type dicyclomine 10 mg capsule 20 mg (2 x 10 mg) PO Q6H PRN PRN 12/01/23 Unknown Rx abdominal pain #20 CAPSULES promethazine 25 mg tablet 25 mg PO Q6H PRN PRN Nausea #10 03/07/25 Unknown Rx TABLETS ondansetron 4 mg disintegrating 4 mg PO Q6H PRN nausea and 03/10/25 Unknown Rx tablet vomiting #10 tabs rifaximin 550 mg tablet 550 mg PO TID #42 tabs 03/22/25 04/18/25 Rx caffeine 100 mg tablet 100 mg PO DAILY 04/18/25 Unknown History fexofenadine 180 mg tablet 180 mg PO DAILY 04/18/25 Unknown History (Crystal Allergy) hydroxyzine HCl 25 mg tablet 25 mg PO QHS anxiety 04/18/25 Unknown History midodrine 5 mg tablet 5 mg PO TID 04/18/25 Unknown History Held on 04/18/25. Instructions: MD Ordered Allergy/AdvReac Type Severity Reaction Status Date / Time amitriptyline Allergy tachycardia, Verified 04/23/25 14:08 chest tightness gabapentin AdvReac edema Verified 04/23/25 14:08 Surgical History History of esophagogastroduodenoscopy (EGD) History of incision and drainage Hx of lymph node biopsy Hx of tubal ligation History of hysterectomy Hx of section Hx of cholecystectomy Hx of appendectomy Social History Smoking Status: Former smoker Review of Systems (Anesthesia) ROS Narrative System reviewed and no additional complaints, except as documented.
--- NOTE | 2025-04-23 14:42 | HP.PCM_ITS ---
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 She states that she had been hospitalized twice in the last 3 weeks at [facility] in [place]; first visit lasted 4 days she was treated with Zosyn, second visit was 3 days and she was treated with Rocephin. She had presented to the ER for hospital pain and nausea. She stated that her entire abdomen was very painful and she could hardly stand to wear her pants. She reports soft daily bowel movements, but previously had been constipated with up to [address] of the abdomen and pelvis report reviewed from 03/11/2025: Liver normal pancreas spleen normal. Marked inflammatory change of the colon most particularly the transverse and descending colon. Noted appendectomy presumed cholecystectomy. Impression severe colitis without free air or abscess or obstruction. Occult blood stool testing positive, qualitative lactoferrin positive, and fecal calprotectin in the upper 300s. On 03/20/2025 she did have an EGD during her hospitalization at [facility] for complaint of abdominal pain. She continues to report sharp abdominal spasms for which dicyclomine has been helpful. She st ates that she has a sister with ulcerative colitis and another sister with IBS- C. She is not aware of how she is alicja the shiga toxin. She denies change in water source, exposure to livestock, or known ill persons. FORMERLY [facility], 1928–1983 Medical History Wears glasses Depression Anxiety History of steroid therapy Arthritis Fatty liver Easy bruising Lumbar herniated disc DDD (degenerative disc disease), cervical Back pain Migraine headache Diverticulosis History of GI bleed Shortness of breath on exertion Former smoker Bradycardia Blackout Cardiology follow-up encounter Pain Myalgia Hirsutism Uterine fibroid Tinea pedis Pancolitis Idiopathic intracranial hypertension Home Medications ?Medication ?Instructions ?Recorded ?Last Taken ?Type dicyclomine 10 mg capsule 20 mg (2 x 10 mg) PO Q6H PRN PRN 12/01/23 Unknown Rx abdominal pain #20 CAPSULES promethazine 25 mg tablet 25 mg PO Q6H PRN PRN Nausea #10 03/07/25 Unknown Rx TABLETS ondansetron 4 mg disintegrating 4 mg PO Q6H PRN nausea and 03/10/25 Unknown Rx tablet vomiting #10 tabs rifaximin 550 mg tablet 550 mg PO TID #42 tabs 03/2204/18/25 Rx caffeine 100 mg tablet 100 mg PO DAILY 04/18/25 Unk nown History fexofenadine 180 mg tablet 180 mg PO DAILY 04/18/25 Un known History (Crystal Allergy) hydroxyzine HCl 25 mg tablet 25 mg PO QHS anxiety 03/23 04/15 Unknown History midodrine 5 mg tablet 5 mg PO TID 04/18/25 Unknown History Held on 04/18/25. Instructions: MD Ordered Allergy/AdvReac Type Severity Reaction Status Date / Time amitriptyline Allergy tachycardia, Verified 04/23/25 14:08 chest tightness gabapentin AdvReac edema Verified 04/23/25 14:08 Surgical History History of esophagogastroduodenoscopy (EGD) History of incision and drainage Hx of lymph node biopsy Hx of tubal ligation History of hysterectomy Hx of section Hx of cholecystectomy Hx of appendectomy Social History Smoking Status: Former smoker ROS Constitutional Constitutional: Denies fatigue, fever(s), poor appetite, weight gain or weight loss Gastrointestinal Gastrointestinal: Denies belching, bloating, change in bowel habits, change in stool character, chewing difficulty, coffee ground emesis, constipation, cramping, diarrhea, dyspepsia, dysphagia, early satiety, excessive flatus, fecal incontinence, heartburn, hematemesis, hematochezia, hemorrhoids, loose stools, melena, nausea, odynophagia, rectal bleeding, tenesmus, vomiting or weight changes Vital Signs Vital Signs Vital Signs: 04/23/25 14:09 04/23/25 14:09 Temperature 98 F Temperature Source Temporal Pulse Rate 77 Respiratory Rate 16 Respiratory Pattern Normal Blood Pressure 115/75 Blood Pressure Mean 88 Blood Pressure Source Monitor Blood Pressure Position Semi-Fowlers Blood Pressure Location Left Arm Pulse Ox 100 Oxygen Delivery Method Room Air Weight Weight: 171 lb Body Mass Index (BMI) 30.2 Physical Exam Const alert, oriented x3, no apparent distress and healthy appearing General Appearance: cooperative GI normal to inspection, nondistended, normoactive bowel sounds, soft to palpation, non-tender and non-distended Percussion: normal to percussion Rectal Exam: deferred Assessment & Plan Assessment/Plan (1) Colitis: (2) Abdominal pain: QUALIFIERS: Abdominal location: lower abdomen, unspecified Qualified Code(s): R10.30 - Lower abdominal pain, unspecified (3) Nausea: PLAN: Plan Assessment and Plan Assessment and Plan (1) Nausea: Status: Acute (2) Abdominal pain: Status: Acute Qualifiers: Abdominal location: lower abdomen, unspecified Qualified Code(s): R10.30 - Lower abdominal pain, unspecified (3) Colitis: Status: Acute Orders: Orders KURT w/ Reflex Mult Confirm 03/22/25 R10.9 - Unspecified abdominal pain, R11.0 - Nausea Calprotectin, Stool 03/22/25 R10.9 - Unspecified abdominal pain, R11.0 - Nausea CBC W/Diff, Automated 03/22/25 R10.9 - Unspecified abdominal pain, R11.0 - Nausea Comprehensive Metabolic Profil 03/22/25 R10.9 - Unspecified abdominal pain, R11.0 - Nausea CRP 03/22/25 R10.9 - Unspecified abdominal pain, R11.0 - Nausea IBD Expanded Profile 03/22/25 R10.9 - Unspecified abdominal pain, R11.0 - Nausea Pancreatic Elastase, Fecal 03/22/25 R10.9 - Unspecified abdominal pain, R11.0 - Nausea Allergen, Food Profile 14 03/22/25 R10.9 - Unspecified abdominal pain, R11.0 - Nausea Quantiferon TB-Gold+ 03/22/25 R10.9 - Unspecified abdominal pain, R11.0 - Nausea Stool Occult Blood iFOB 03/22/25 K52.9 - Noninfective gastroenteritis and colitis, unspecified, R10.9 - Unspecified abdominal pain, R11.0 - Nausea Medications: New rifaximin 550 mg PO TID 42 tabs 2RF Plan DIMPLE MANN, is a 39 F who presents to the office today for establishment with [facility] regarding scheduling follow-up colonoscopy status post pancolitis from E. coli Shiga toxin infection. Discussed care plan with her. * Blood to investigate IBD and food allergies * Stool for occult blood, calprotectin and fecal elastase * Schedule colonoscopy * Rifaximin 550 mg p.o. 3 times daily x14d * Probiotic twice daily starting day 8 of rifaximin * Low FODMAP diet for 3 weeks, slowly reintroduce foods 1 at a time * Office follow-up after endoscopy
--- NOTE | 2025-04-23 15:00 | COLBX_PTH ---
PATIENT: DIMPLE MANN LOC: EN U#:[id number] AGE/SX: 39/F ROOM: RE04/23/[address]: Dr. Kevin Guadalupe DO : 1985 BED: DIS: 04/23/2025 SPEC #: [id number] RECD: 04/23/25 18:02 STATUS: AYLIN OSEI #: [id number] [place]: 04/23/25 15:[address]: Kevin Guadalupe DEPT: SURGICAL PATHOLOGY RECD BY: Reed Figueroa ENTERED: 04/24/25 09:47 SP TYPE: COLON BX OTHR DR: ZACHARY Rhodes Tissues: A - Ileum, NOS B - COLON BIOPSY C - Sigmoid colon biopsy Procedures: Surgery Specimen Level IV HEADER OPERATION: Colonoscopy with biopsy PRE-OP DIAGNOSIS: Nausea, abdominal pain, colitis TISSUE SUBMITTED: A- Terminal ileum biopsy, B- Random colon biopsy, C- Sigmoid colon biopsy MICROSCOPIC DIAGNOSIS A. Terminal ileum, biopsy: - No specific pathologic change. B. Colon, random, biopsy: - No specific pathologic change. C. Sigmoid colon, biopsy - No specific pathologic change.: MICROSCOPIC DESCRIPTION Slides are reviewed. GROSS DESCRIPTION A. Received in fixative is one container labeled with the patient's name and designated Terminal ileum biopsy. The specimen consists of four irregular fragments of light russell soft tissue that measure 0.3 to 0.5 cm. The specimen is totally submitted in one cassette. B. Received in fixative is one container labeled with the patient's name and designated Random colon biopsy. The specimen consists of one irregular fragment of light russell soft tissue that measures 0.4 cm. The specimen is totally submitted in one cassette. C. Received in fixative is one container labeled with the patient's name and designated Sigmoid colon biopsy. The specimen consists of two irregular fragments of light russell soft tissue that measure 0.3 and 0.7 cm. The specimen is totally submitted in one cassette. UT 04/24/2025 CPT:[id number]
--- NOTE | 2025-04-23 15:22 | PCM.POST.ANE ---
Anesthesia: Postop Eval I Current Vital Signs Temperature: 97 F Pulse Rate: 73 Blood Pressure: 114/96 Respiratory Rate: 16 Pulse Ox: 97 Oxygen Delivery Method: Room Air Assessment Airway patent: Yes Spontaneous unlabored respirations: Yes Mental status: Awake and Calm nausea: No Vomiting: No Anesthesia Complication: No Fluid Hydration Crystalloid volume administer (ml): 500 Total IV fluid infused: 500 Progress Note Anesthesia document: Postop Eval 1 completed: Yes
--- NOTE | 2025-04-23 15:27 | POSTOPAN2_ITS ---
Anesthesia Postop Eval I Sum Postop Eval Completion status Anesthesia document: Postop Eval 1 completed: Yes Anesthesia Postop Eval I Summary Anesthesia Postop Eval I Summary: Anesthesia Postop Eval I: Assessment Summary Airway patent Yes 04/23/25 15:23 GENERAL MANAGER [email or web address] Spontaneous unlabored Yes 04/23/25 15:23 GENERAL MANAGER [email or web address].MDOT respirations Mental status Awake,Calm 04/23/25 15:23 GENERAL MANAGER [email or web address].MDOT nausea No 04/23/25 15:23 GENERAL MANAGER FARM.MDOT Vomiting No 04/23/25 15:23 GENERAL MANAGER [email or web address].MDOT Anesthesia Postop Eval I: Fluid Summary Crystalloid volume administer 500 04/23/25 15:23 GENERAL MANAGER FARM.MDOT (ml) Colloids volume administered ( ml) Blood Product volume administered (ml) Total IV fluid infused 500 04/23/25 15:23 GENERAL MANAGER FARM.MDOT Anesthesia Postop Eval I: Summary Notes Anesthesia Complication No 04/23/25 15:23 GENERAL MANAGER FARM.MDOT Anesthesia Complication Comment: Post-operative progress note Anesthesia: Postop Eval II Evaluation Mental status: Awake and Calm Pain Level: 0 nausea: No Vomiting: No Complications Anesthesia Complication: No
--- NOTE | 2025-04-23 15:27 | PCM.POSTANE2 ---
Anesthesia Postop Eval I Sum Postop Eval Completion status Anesthesia document: Postop Eval 1 completed: Yes Anesthesia Postop Eval I Summary Anesthesia Postop Eval I Summary: Anesthesia Postop Eval I: Assessment Summary Airway patent Yes 04/23/25 15:23 MACHINE BINDING [email or web address] Spontaneous unlabored Yes 04/23/25 15:23 MACHINE BINDING FOLDER.MDOT respirations Mental status Awake,Calm 04/23/25 15:23 MACHINE BINDING FOLDER.MDOT nausea No 04/23/25 15:23 MACHINE BINDING FOLDER.MDOT Vomiting No 04/23/25 15:23 MACHINE BINDING FOLDER.MDOT Anesthesia Postop Eval I: Fluid Summary Crystalloid volume administer 500 04/23/25 15:23 MACHINE BINDING FOLDER.MDOT (ml) Colloids volume administered ( ml) Blood Product volume administered (ml) Total IV fluid infused 500 04/23/25 15:23 MACHINE BINDING FOLDER.MDOT Anesthesia Postop Eval I: Summary Notes Anesthesia Complication No 04/23/25 15:23 MACHINE BINDING FOLDER.MDOT Anesthesia Complication Comment: Post-operative progress note Anesthesia: Postop Eval II Evaluation Mental status: Awake and Calm Pain Level: 0 nausea: No Vomiting: No Complications Anesthesia Complication: No
--- NOTE | 2025-04-23 15:36 | OP.PROVAT_ITS ---
04/23/2025 Fiorella Bradley Re : Colonoscopy procedure for Jennifer Del Valle Deabrielle Bradley This procedure was performed on Wednesday, April 23, 2025. My impressions and recommendations are as follows: Impressions : - Diverticulosis in the recto-sigmoid colon and in the sigmoid colon. - Congested mucosa in the recto-sigmoid colon and in the sigmoid colon. Biopsied. - The examined portion of the ileum was normal. Biopsied. Recommendations : - Discharge patient to home. - Resume previous diet. - Continue present medications. - Await pathology results. - Discharge patient to home. - Repeat colonoscopy for surveillance based on pathology results. My findings are described in the full procedure note, which is enclosed. If I can be of further assistance, please feel free to contact me at . Sincerely, Kevin Guadalupe, 04/23/2025 3:35:24 PM This report has been signed electronically.
--- NOTE | 2025-04-23 15:36 | OP.COLON_ITS ---
Patient Name: Jennifer Del Valle Procedure Date: 04/23/2025 2:33 PM Date of : 1985 Age: 39 Procedure: Colonoscopy Indications: Clinically significant diarrhea of unexplained origin, Abnormal CT of the GI tract Providers: Kvein Guadalupe DO Medicines: Monitored Anesthesia Care Patient Profile: This is a 39 year old female. Refer to note in patient chart for documentation of history and physical. Last Colonoscopy: none. The patient's first colonoscopy is today. Complications: No immediate complications. Procedure: Pre-Anesthesia Assessment: - Prior to the procedure, a History and Physical was performed, and patient medications and allergies were reviewed. The patient is competent. The risks and benefits of the procedure and the sedation options and risks were discussed with the patient. All questions were answered and informed consent was obtained. Patient identification and proposed procedure were verified by the physician. Mental Status Examination: alert and oriented. Airway Examination: normal oropharyngeal airway and neck mobility. Respiratory Examination: clear to auscultation. CV Examination: normal. Prophylactic Antibiotics: The patient does not require prophylactic antibiotics. Prior Anticoagulants: The patient has taken no anticoagulant or antiplatelet agents except for NSAID medication. ASA Grade Assessment: II - A patient with mild systemic disease. After reviewing the risks and benefits, the patient was deemed in satisfactory condition to undergo the procedure. The anesthesia plan was to use monitored anesthesia care (MAC). Immediately prior to administration of medications, the patient was re-assessed for adequacy to receive sedatives. The heart rate, respiratory rate, oxygen saturations, blood pressure, adequacy of pulmonary ventilation, and response to care were monitored throughout the procedure. The physical status of the patient was re-assessed after the procedure. After I obtained informed consent, the scope was passed under direct vision. Throughout the procedure, the patient's blood pressure, pulse, and oxygen saturations were monitored continuously. The colonoscope was introduced through the anus and advanced to the terminal ileum. The colonoscopy was performed without difficulty. The patient tolerated the procedure well. The quality of the bowel preparation was adequate. The terminal ileum, ileocecal valve, appendiceal orifice, and rectum were photographed. The terminal ileum, ileocecal valve, appendiceal orifice, and rectum were photographed. Scope In: 3:05:52 PM Scope Withdrawal Time 0 hours 10 minutes 13 seconds Scope Out: 3:21:06 PM Total Procedure Duration Time 0 hours 15 minutes 14 seconds Findings: The perianal and digital rectal examinations were normal. Multiple small and large-mouthed diverticula were found in the recto-sigmoid colon and sigmoid colon. An area of mildly congested mucosa was found in the recto-sigmoid colon and in the sigmoid colon. Biopsies were taken with a cold forceps for histology. Verification of patient identification for the specimen was done. Estimated blood loss was minimal. The terminal ileum appeared normal. Biopsies were taken with a cold forceps for histology. Verification of patient identification for the specimen was done by the physician. Estimated blood loss was minimal. Impression: - Diverticulosis in the recto-sigmoid colon and in the sigmoid colon. - Congested mucosa in the recto-sigmoid colon and in the sigmoid colon. Biopsied. - The examined portion of the ileum was normal. Biopsied. Recommendation: - Discharge patient to home. - Resume previous diet. - Continue present medications. - Await pathology results. - Discharge patient to home. - Repeat colonoscopy for surveillance based on pathology results. Procedure Code(s): --- Professional --- 96494, Colonoscopy, flexible; with biopsy, single or multiple CPT copyright 2021 [employer]. All rights reserved. The codes documented in this report are preliminary and upon low raw sugar cutter review may be revised to meet current compliance requirements. Kevin Guadalupe DO 04/23/2025 3:35:24 PM This report has been signed electronically. Number of Addenda: 0 Note Initiated On: 04/23/2025 2:33 PM
== END 2025-04-23 16:19 | disposition home or self-care (01) ==
LOC: EN 13:48 → AC 13:49
PROVIDERS: PCP Physician Assistant; Referring Provider Physician Assistant; Visit Provider Internal Medicine Gastroenterology
PROC: 0DJD8ZZ Inspection of Lower Intestinal Tract, Via Natural or Artificial Opening Endoscopic (ICD-10-PCS; CPT 45378; principal; 2025-04-23 14:55)
DX: K57.30 Diverticulosis of large intestine without perforation or abscess without bleeding (principal); K52.9 Noninfective gastroenteritis and colitis, unspecified; Z87.891 Personal history of nicotine dependence; Z79.899 Other long term (current) drug therapy
CPT/HCPCS: 45380; 88305; J2405